=== PATIENT | female | born 1960 | race Caucasian/White ===

== ENCOUNTER 2017-03-21 06:23 | Emergency (ER) | payer BC, OTHER ==
[~2017-03-21] VITALS: Ht 162.6 cm; Wt 72.6 kg
[~2017-03-21 06:23] MED LIST: AMLO1CAP7 PO; CLON0.5T3 PO; DOXY100C2 PO; ESTR1TAB24; FENO105T3 PO; HCT25T PO; HYDR1CAP3; LISI10TA PO; LISI1TAB10 PO; LORA0.5T PO; LOSA100T16 PO; LOSA1TAB19 PO; METO100T2 PO; PNT40TEC PO; PRAV40TA PO; PROM12.59 PO; SCR1T PO; SERT50TA PO; SULF1TAB35
--- OUTSIDE RECORDS SUMMARY | 2017-03-21 06:30 | XMS REPORT ---
Author Author ABENA MEJIA [facility] eClinicalWorks Address Unknown Phone Unavailable Care Team Providers Care Wine Pasteurizer Name Role Phone ABENA MEJIA CP Unavailable Allergies, Adverse Reactions, Alerts Substance Reaction Event Type N.K.D.A. Info Not Available Non Drug Allergy Problems Problem Type Condition Code Onset Dates Condition Status Problem Need for prophylactic vaccination and inoculation, Influenza V04.81 Active Assessment Sore throat J02.9 Active Problem Hypertension 401.9 Active Medications Medication Code System Code Instructions Start Date End Date Status Dosage Amlodipine Besylate [facility] [address]-66 5 MG Orally Once a day 1 tablet Promethazine HCl [facility] [address]-44 25 MG Orally every 6 hrs prn 1 tablet as needed Amoxicillin [facility] [address]-41 500 MG Orally 3 times a day September 05, 2015 September 15, 2015 1 capsule Losartan Potassium [facility] [address]-37 100 MG Orally Once a day 1 tablet Procedures Procedure Coding System Code Date Office Visit, Est Pt., Level 3 CPT-4 48231 September 05, 2015 STREP A ASSAY W/OPTIC CPT-4 27508 September 05, 2015 Vital Signs Date/Time: September 05, 2015 Cardiac Monitoring Heart Rate 64 bpm Weight 163.8 lbs Height 64 in Blood Pressure Diastolic 80 mmHg Blood Pressure Systolic 126 mmHg Results No Known Results Summary Purpose eClinicalWorks Submission
--- OUTSIDE RECORDS SUMMARY | 2017-03-21 06:31 | XMS REPORT ---
Author Author CECILIA IVEY Organization eClinicalWorks Address Unknown Phone Unavailable Care Team Providers Care Battery Parts Assembler Name Role Phone CECILIA IVEY CP Unavailable Allergies No Known Allergies Problems Problem Type Condition ICD-9 Code Onset Dates Condition Status Problem Need for prophylactic vaccination and inoculation, Influenza V04.81 Active Medications Medication Code System Code Instructions Start Date End Date Status Dosage Hydrochlorothiazide [facility] [address]-72 25 MG Orally Once a day 1 tablet Results No Known Results Summary Purpose eClinicalWorks Submission
--- OUTSIDE RECORDS SUMMARY | 2017-03-21 06:31 | XMS REPORT ---
Author Author CECILIA IVEY [facility] eClinicalWorks Address Unknown Phone Unavailable Care Team Providers Care Production Line Technician Name Role Phone CECILIA IVEY CP Unavailable Allergies, Adverse Reactions, Alerts Substance Reaction Event Type N.K.D.A. Info Not Available Non Drug Allergy Problems Problem Type Condition ICD-9 Code Onset Dates Condition Status Problem Need for prophylactic vaccination and inoculation, Influenza V04.81 Active Assessment Hypertension 401.9 Active Problem Hypertension 401.9 Active Assessment Insomnia 780.52 Active Medications Medication Code System Code Instructions Start Date End Date Status Dosage Promethazine HCl [facility] [address]-36 25 MG Orally every 6 hrs prn 1 tablet as needed Amlodipine Besylate [facility] [address]-77 5 MG Orally Once a day 1 tablet Metoprolol Tartrate [facility] [address]-83 100 MG Orally Twice a day 1 tablet Clonazepam [facility] [address]-49 0.5 MG Orally Once a day prn for sleep 1 tablet Losartan Potassium [facility] [address]-71 100 MG Orally Once a day 1 tablet Hydrochlorothiazide [facility] [address]-25 25 MG Orally Once a day 1 tablet Procedures Procedure Coding System Code Date Office Visit, Est Pt., Level 3 CPT-4 42226 Nov 08, 2014 Vital Signs Date/Time: Nov 08, 2014 Cardiac Monitoring Heart Rate 76 bpm Temperature 98.3 F Weight 162.0 lbs Blood Pressure Diastolic 82 mmHg Blood Pressure Systolic 134 mmHg Results No Known Results Summary Purpose eClinicalWorks Submission
--- OUTSIDE RECORDS SUMMARY | 2017-03-21 06:31 | XMS REPORT ---
Author Author CECILIA IVEY [facility] [address] Address [address] [place] [address] Care Team Providers Care Yarn Preparation Supervisor Name Role Phone CECILIA IVEY Unavailable PROBLEMS Type Condition ICD9-CM Code VNS06-PS Code Onset Dates Condition Status SNOMED Code Problem Seasonal allergic rhinitis due to pollen J30.1 Active 74039027 Problem Primary insomnia F51.01 Active 7836521 Problem Hypertension 401.9 Active 83950877 Problem Need for prophylactic vaccination and inoculation, Influenza V04.81 Active 005319213 Problem Essential hypertension I10 Active 62644375 Problem Stress incontinence, female N39.3 Active 29208431 ALLERGIES No Information SOCIAL HISTORY Never Assessed PLAN OF CARE VITAL SIGNS MEDICATIONS Unknown Medications RESULTS No Results PROCEDURES No Known procedures IMMUNIZATIONS No Known Immunizations MEDICAL (GENERAL) HISTORY Type Description Date Medical History [place] G[place]MEZ GRADE B REFLUX (GIL RECORDS) 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
--- OUTSIDE RECORDS SUMMARY | 2017-03-21 06:31 | XMS REPORT ---
Author Author CECILIA IVEY [facility] Address [address] [place] [address] Care Team Providers Care Disability Hearing Officer Name Role Phone CECILIA IVEY Unavailable PROBLEMS Type Condition ICD9-CM Code [id number] Code Onset Dates Condition Status SNOMED Code Problem Seasonal allergic rhinitis due to pollen J30.1 Active 49892284 Problem Primary insomnia F51.01 Active 5961575 Problem Hypertension 401.9 Active 95036104 Problem Need for prophylactic vaccination and inoculation, Influenza V04.81 Active 385057922 Problem Essential hypertension I10 Active 85565521 Problem Stress incontinence, female N39.3 Active 96061272 ALLERGIES No Known Allergies SOCIAL HISTORY Never Assessed PLAN OF CARE Activity Details Follow Up 3 Months Reason:Insomnia VITAL SIGNS Height 64 in 2016-05-06 Weight 166.6 lbs 2016-05-06 Temperature 97.7 degrees Fahrenheit 2016-05-06 Heart Rate 80 bpm 2016-05-06 Respiratory Rate 20 2016-05-06 BMI 28.59 kg/m2 2016-05-06 Blood pressure systolic 118 mmHg 2016-05-06 Blood pressure diastolic 78 mmHg 2016-05-06 MEDICATIONS Medication Instructions Dosage Frequency Start Date End Date Duration Status Hydrochlorothiazide 25 MG Orally Once a day 1 tablet 24h Active Amlodipine Besylate 5 MG Orally Once a day 1 tablet 24h Active Metoprolol Tartrate 100 MG Orally Twice a day 1 tablet 12h Active Losartan Potassium 100 MG Orally Once a day 1 tablet 24h Active Clonazepam 0.5 MG Orally Once a day prn for sleep 1 tablet Active Estradiol 1 MG Orally Once a day 1 tablet 24h 20 days Active RESULTS Name Result Date Reference Range [facility] 2016-05-06 Glucose, Serum 94 65-99 BUN 16 6-24 Creatinine, Serum 0.64 0.57-1.00 eGFR If NonAfricn Am 101 >59 eGFR If Africn Am 116 >59 BUN/Creatinine Ratio 25 9-23 Sodium, Serum 139 134-144 Potassium, Serum 4.6 3.5-5.2 Chloride, Serum 99 96-106 Carbon Dioxide, Total 24 18-29 Calcium, Serum 10.2 8.7-10.2 Protein, Total, Serum 7.0 6.0-8.5 Albumin, Serum 4.5 3.5-5.5 Globulin, Total 2.5 1.5-4.5 A/G Ratio 1.8 1.1-2.5 Bilirubin, Total 0.4 0.0-1.2 Alkaline Phosphatase, S 96 39-117 AST (SGOT) 15 0-40 ALT (SGPT) 20 0-32 Mammogram, Bilateral Screening 2016-05-13 PROCEDURES Procedure Date Ordered Result Body Site COMPREHEN METABOLIC PANEL May 06, 2016 VENIPUNCT, ROUTINE* May 06, 2016 IMMUNIZATIONS No Known Immunizations MEDICAL (GENERAL) HISTORY Type Description Date Medical History [place] G[place]MEZ GRADE B REFLUX ([facility] RECORDS) WITH HILL GRADE 3 LES (LOWER ESOPHAGUS SPINCTER) INCOMPETENCE Medical History Mitral valve prolapse - 1988 Medical History Hypertension Medical History Hyperlipidemia Medical History beginning stages of COPD Surgical History wound repair x 5 Surgical History Endometriosis- adhesion removal Surgical History TIF 2009 Surgical History LUE nerve repair 2010 Surgical History section x2 Surgical History Hysterectomy -- Had other ovary removed in 2001 due to endometriosis Surgical History Cholecystectomy Hospitalization History past surgery
--- OUTSIDE RECORDS SUMMARY | 2017-03-21 06:31 | XMS REPORT ---
Author Author NOEL LACEY [facility] eClinicalWorks Address Unknown Phone Unavailable Care Team Providers Care Mixing Picker Tender Name Role Phone NOEL LACEY Unavailable Allergies, Adverse Reactions, Alerts Substance Reaction Event Type N.K.D.A. Info Not Available Non Drug Allergy Problems Problem Type Condition Code Onset Dates Condition Status Assessment Smoker unmotivated to quit F17.210 Active Assessment Seasonal allergic rhinitis due to pollen J30.1 Active Assessment Cough R05 Active Problem Essential hypertension I10 Active Problem Primary insomnia F51.01 Active Problem Seasonal allergic rhinitis due to pollen J30.1 Active Problem Need for prophylactic vaccination and inoculation, Influenza V04.81 Active Assessment Pharyngitis, unspecified etiology J02.9 Active Problem Stress incontinence, female N39.3 Active Problem Hypertension 401.9 Active Medications Medication Code System Code Instructions Start Date End Date Status Dosage Hydrochlorothiazide [facility] [address]-40 25 TAKE ONE TABLET BY MOUTH DAILY Amlodipine Besylate [facility] [address]-72 5 MG Orally Once a day 1 tablet Zyrtec Allergy [facility] [address]-31 10 mg Orally Once a day Dec 31, 2015 Feb 29, 2016 1 tablet Metoprolol Tartrate [facility] [address]-82 100 MG Orally Twice a day 1 tablet Losartan Potassium [facility] [address]-72 100 MG Orally Once a day 1 tablet Clonazepam [facility] [address]-95 0.5 MG Orally Once a day prn for sleep 1 tablet Hydrochlorothiazide [facility] [address]-99 25 MG Orally Once a day 1 tablet Estradiol [facility] [address]-07 1 MG Orally Once a day 1 tablet Procedures Procedure Coding System Code Date Office Visit, Est Pt., Level 3 CPT-4 93892 Dec 31, 2015 MEASURE BLOOD OXYGEN LEVEL CPT-4 48083 Dec 31, 2015 Vital Signs Date/Time: Dec 31, 2015 Cardiac Monitoring Heart Rate 74 bpm Weight 173.8 lbs Height 64 in BMI 29.83 Index Oximetry 96 % Blood Pressure Diastolic 74 mmHg Blood Pressure Systolic 133 mmHg Results No Known Results Summary Purpose eClinicalWorks Submission
--- OUTSIDE RECORDS SUMMARY | 2017-03-21 06:31 | XMS REPORT ---
Author Author CECILIA IVEY [facility] Address [address] [place] [address] Care Team Providers Care Research Study Assistant Name Role Phone CECILIA IVEY Unavailable PROBLEMS Type Condition ICD9-CM Code QDH59-AZ Code Onset Dates Condition Status SNOMED Code Problem Seasonal allergic rhinitis due to pollen J30.1 Active 65852876 Problem Primary insomnia F51.01 Active 8579840 Problem Hypertension 401.9 Active 21099185 Problem Need for prophylactic vaccination and inoculation, Influenza V04.81 Active 217173517 Problem Essential hypertension I10 Active 85406524 Problem Stress incontinence, female N39.3 Active 75013514 ALLERGIES No Information SOCIAL HISTORY Never Assessed PLAN OF CARE VITAL SIGNS MEDICATIONS Medication Instructions Dosage Frequency Start Date End Date Duration Status Amlodipine Besylate 5 mg Orally Once a day 1 tablet 24h 20 days Active Estradiol 1 MG Orally Once a day 1 tablet 24h 20 days Active Losartan Potassium 100 mg Orally Once a day 1 tablet 24h 20 days Active Hydrochlorothiazide 25 TAKE ONE TABLET BY MOUTH DAILY 20 days Active Metoprolol Tartrate 100 mg Orally Twice a day 1 tablet 12h 20 days Active RESULTS No Results PROCEDURES No Known procedures [...] TIF 2008 Surgical History LUE nerve repair 2009 Surgical History section x2 Surgical History Hysterectomy -- Had other ovary removed in 2001 due to endometriosis Surgical History Cholecystectomy Hospitalization History past surgery
--- OUTSIDE RECORDS SUMMARY | 2017-03-21 06:31 | XMS REPORT ---
Author Author NOEL LACEY Organization eClinicalWorks Address Unknown Phone Unavailable Care Team Providers Care Turkey Egg Gatherer Name Role Phone NOEL LACEY Unavailable Allergies No Known Allergies Problems Problem Type Condition Code Onset Dates Condition Status Problem Need for prophylactic vaccination and inoculation, Influenza V04.81 Active Assessment Encounter for immunization Z23 Active Problem Hypertension 401.9 Active Medications No Known Medications Procedures Procedure Coding System Code Date FLUARIX QUAD (3 & UP)-GSK-2014 CPT-4 61937 Dec 15, 2014 SINGLE IMMUNIZATION ADMIN CPT-4 63343 Dec 15, 2014 TDAP (BOOSTRIX) CPT-4 73533 Dec 15, 2014 IMMUNIZATION ADMIN, EACH ADD (please include units) CPT-4 25114 Dec 15, 2014 Results No Known Results Immunizations Vaccine Administration Date TDAP (BOOSTRIX) Dec 15, 2014 FLUARIX QUAD (3 & UP)-GSK-2014Dec 15, 2014 Summary Purpose eClinicalWorks Submission
--- OUTSIDE RECORDS SUMMARY | 2017-03-21 06:31 | XMS REPORT | Continuity of Care Document ---
Author Author [facility] Address Unknown Phone Unavailable Allergies Active Description Code Type Severity Reaction Onset Reported/Identified Relationship to Patient Clinical Status Yes No Known Drug Allergies [id number] Drug Allergy Unknown N/A 07/21/2009 Medications There is no data. Problems Date Dx Coded Attending Type Code Diagnosis Diagnosed By 09/21/2007 DEEPTHI MUNOZ NOEL A 296.32 MAJOR DEPRESSIVE AFFECTIVE DISORDER RECURRENT EPISODE MODERATE DEGREE 09/21/2007 MADL DIRECTOR OF DIVERSITY AND INCLUSION, CECILIA L 296.32 MAJOR DEPRESSIVE AFFECTIVE DISORDER RECURRENT EPISODE MODERATE DEGREE 10/14/2007 EWAE ALEXANDER NOEL A 780.79 MALAISE AND FATIGUE 10/14/2007 EWAE ALEXANDER NOEL A 785.6 LYMPH NODES ENLARGEMENT 10/14/2007 MADL DIRECTOR OF DIVERSITY AND INCLUSION, CECILIA L 780.79 MALAISE AND FATIGUE 10/14/2007 MADL DIRECTOR OF DIVERSITY AND INCLUSION, CECILIA L 785.6 LYMPH NODES ENLARGEMENT 11/28/2008 EWAE ALEXANDER NOEL A 627.2 MENOPAUSE SYMPTOMATIC 11/28/2008 RAJOTTE DIRECTOR OF DIVERSITY AND INCLUSION, NOEL A V07.4 taking female hormones for postmenopausal HRT 11/28/2008 MADL DIRECTOR OF DIVERSITY AND INCLUSION, CECILIA L 627.2 MENOPAUSE SYMPTOMATIC 11/28/2008 MADL DIRECTOR OF DIVERSITY AND INCLUSION, CECILIA L V07.4 taking female hormones for postmenopausal HRT 12/27/2012 RAJISAIE ALEXANDER NOEL A V04.81 FLU SHOT 12/27/2012 MADL DIRECTOR OF DIVERSITY AND INCLUSION, CECILIA L V04.81 FLU SHOT 06/24/2014 MADL DIRECTOR OF DIVERSITY AND INCLUSION, CECILIA L 305.1 TOBACCO ABUSE 06/24/2014 MADL DIRECTOR OF DIVERSITY AND INCLUSION, CECILIA L 401.1 HYPERTENSION, BENIGN ESSENTIAL 06/24/2014 MADL DIRECTOR OF DIVERSITY AND INCLUSION, CECILIA L 786.50 UNSPECIFIED CHEST PAIN 06/24/2014 MADL DIRECTOR OF DIVERSITY AND INCLUSION, CECILIA L V49.81 ASYMPTOMATIC POSTMENOPAUSAL STATUS (AGE-RELATED) (NATURAL) 09/29/2014 MOHAN JAIME MD Ot 305.1 09/29/2014 MOHAN JAIME MD Ot 401.9 09/29/2014 MOHAN JAIME MD Ot 786.09 09/29/2014 MOHAN JAIME MD Ot 786.50 10/23/2014 MOHAN JAIME MD Ot 305.1 10/23/2014 MOHAN JAIME MD Ot 401.9 10/23/2014 MOHAN JAIME MD Ot 786.09 10/23/2014 MOHAN JAIME MD, Ot 786.50 Procedures Code [place] [address] MAMMOGRAM, SCREENING 06/24/2014 CARDIOLOG MOHAN JAIME 06/24/2014 Results There is no data. Encounters ACCT No. Visit Date/Time Discharge Status Pt. Type Provider Facility Loc./Unit Complaint [id number] 06/24/2014 12:45:00 06/24/2014 23:59:59 CLS Outpatient CECILIA IVEY APRN [id number] 12/27/2012 15:13:00 12/27/2012 23:59:59 CLS Outpatient NOEL LACEY APRN [id number] 09/26/2014 09:29:00 09/26/2014 23:59:59 CLS Outpatient MOHAN JAIME MD [facility] CARD [id number] 03/24/2013 08:49:00 03/24/2013 23:59:59 CLS Outpatient [id number] 08/05/2012 06:59:00 08/05/2012 10:25:00 DIS Outpatient [id number] 08/04/2012 07:18:00 08/04/2012 23:59:59 CLS Outpatient
--- OUTSIDE RECORDS SUMMARY | 2017-03-21 06:31 | XMS REPORT ---
Author Author CECILIA IVEY [facility] Address [address] [place] [address] Care Team Providers Care Weights And Measures Inspector Name Role Phone CECILIA IVEY Unavailable PROBLEMS Type Condition ICD9-CM Code FCX74-ZE Code Onset Dates Condition Status SNOMED Code Problem Seasonal allergic rhinitis due to pollen J30.1 Active 28843745 Problem Primary insomnia F51.01 Active 8531458 Problem Hypertension 401.9 Active 02830632 Problem Need for prophylactic vaccination and inoculation, Influenza V04.81 Active 888399135 Problem Essential hypertension I10 Active 62609133 Problem Stress incontinence, female N39.3 Active 31864966 ALLERGIES Unknown Allergies SOCIAL HISTORY No smoking Hx information available PLAN OF CARE VITAL SIGNS MEDICATIONS Medication Instructions Dosage Frequency Start Date End Date Duration Status Metoprolol Tartrate 100 mg Orally Twice a day 1 tablet 12h 16 days Active Amlodipine Besylate 5 mg Orally Once a day 1 tablet 24h 16 days Active Hydrochlorothiazide 25 TAKE ONE TABLET BY MOUTH DAILY 16 days Active RESULTS No Results PROCEDURES No Known procedures IMMUNIZATIONS No Known Immunizations
--- OUTSIDE RECORDS SUMMARY | 2017-03-21 06:31 | XMS REPORT ---
Author Author CECILIA IVEY [facility] eClinicalWorks Address Unknown Phone Unavailable Care Team Providers Care A&P Technician Name Role Phone CECILIA IVEY CP Unavailable Allergies, Adverse Reactions, Alerts Substance Reaction Event Type N.K.D.A. Info Not Available Non Drug Allergy Problems Problem Type Condition Code Onset Dates Condition Status Assessment Stress incontinence, female N39.3 Active Problem Primary insomnia F51.01 Active Problem Stress incontinence, female N39.3 Active Problem Essential hypertension I10 Active Assessment Essential hypertension I10 Active Assessment Primary insomnia F51.01 Active Problem Hypertension 401.9 Active Problem Need for prophylactic vaccination and inoculation, Influenza V04.81 Active Medications Medication Code System Code Instructions Start Date End Date Status Dosage Metoprolol Tartrate [facility] [address]-23 100 MG Orally Twice a day 1 tablet Losartan Potassium [facility] [address]-58 100 MG Orally Once a day 1 tablet Amlodipine Besylate [facility] [address]-60 5 MG Orally Once a day 1 tablet Hydrochlorothiazide [facility] [address]-72 25 MG Orally Once a day 1 tablet Clonazepam [facility] [address]-16 0.5 MG Orally Once a day prn for sleep 1 tablet [address]q [facility] [address]-59 50 mg Orally Once a day September 11, 2015 Oct 09, 2015 1 tablet Amox[address] [facility] [address]-41 500 MG Orally 3 times a day September 05, 2015 September 15, 2015 1 capsule Procedures Procedure Coding System Code Date Office Visit, Est Pt., Level 4 CPT-4 82432 September 11, 2015 Vital Signs Date/Time: September 11, 2015 Cardiac Monitoring Heart Rate 70 bpm Weight 164.0 lbs Height 64 in Blood Pressure Diastolic 80 mmHg Blood Pressure Systolic 132 mmHg Results No Known Results Summary Purpose eClinicalWorks Submission
--- OUTSIDE RECORDS SUMMARY | 2017-03-21 06:31 | XMS REPORT ---
Author Author NOEL LACEY [facility] eClinicalWorks Address Unknown Phone Unavailable Care Team Providers Care Financial Aid Name Role Phone NOEL LACEY Unavailable Allergies No Known Allergies Problems Problem Type Condition Code Onset Dates Condition Status Problem Primary insomnia F51.01 Active Problem Stress incontinence, female N39.3 Active Problem Essential hypertension I10 Active Assessment Encounter for immunization Z23 Active Problem Hypertension 401.9 Active Problem Need for prophylactic vaccination and inoculation, Influenza V04.81 Active Medications No Known Medications Procedures Procedure Coding System Code Date SINGLE IMMUNIZATION ADMIN CPT-4 47898 Dec 03, 2015 FLUARIX QUAD P-FREE 3 AND UP .50 2015 CPT-4 78746 Dec 03, 2015 Results No Known Results Immunizations Vaccine Administration Date FLUARIX QUAD P-FREE 3 AND UP .50 2015Dec 03, 2015 Summary Purpose eClinicalWorks Submission
--- OUTSIDE RECORDS SUMMARY | 2017-03-21 06:31 | XMS REPORT ---
Author Author CINDY DARLING [facility] eClinicalWorks Address Unknown Phone Unavailable Care Team Providers Care Interactive Producer Name Role Phone CINDY DARLING CP Unavailable Allergies, Adverse Reactions, Alerts Substance Reaction Event Type N.K.D.A. Info Not Available Non Drug Allergy Problems Problem Type Condition Code Onset Dates Condition Status Assessment Left otitis media, unspecified chronicity, unspecified otitis media type H66.92 Active Problem Essential hypertension I10 Active Problem Primary insomnia F51.01 Active Problem Seasonal allergic rhinitis due to pollen J30.1 Active Problem Need for prophylactic vaccination and inoculation, Influenza V04.81 Active Assessment Fever, unspecified fever cause R50.9 Active Problem Stress incontinence, female N39.3 Active Problem Hypertension 401.9 Active Medications Medication Code System Code Instructions Start Date End Date Status Dosage Amoxicillin [facility] [address]-88 875 MG Orally every 12 hrs Jan 01, 2016 Jan 11, [address] [facility] [address]-00 1 MG Orally Once a day [address] [facility] [address]-58 25 TAKE ONE TABLET BY MOUTH DAILY Amlodipine Besylate [facility] [address]-90 5 MG Orally Once a day [address] [facility] [address]-54 0.5 MG Orally Once a day prn for sleep [address] [facility] [address]-99 10 mg Orally Once a day Dec 31, 2015 Feb 29, [address] [facility] [address]-60 100 MG Orally Twice a day [address] [facility] [address]-72 25 MG Orally Once a day [address] [facility] [address]-04 100 MG Orally Once a day 1 tablet Procedures Procedure Coding System Code Date Office Visit, Est Pt., Level 3 CPT-4 07333 Jan 01, 2016 INFLUENZA ASSAY W/OPTIC CPT-4 42904 Jan 01, 2016 Vital Signs Date/Time: Jan 01, 2016 Cardiac Monitoring Heart Rate 88 bpm Weight 165.8 lbs Height 64 in BMI 28.46 Index Blood Pressure Diastolic 78 mmHg Blood Pressure Systolic 124 mmHg Results Name Result Date Reference Range Unit Abnormality Flag INFLUENZA A & B (IN HOUSE) ----Exp date 11/29/1620160101 ----INFLUENZA A Negative 20160101 ----INFLUENZA B Negative 20160101 ----Control + 20160101 ----Lot # [id number] Summary Purpose eClinicalWorks Submission
[2017-03-21] MEDS ORDERED: ONDANSETRON 4 MG/2 ML (SDV) Z0FRAN IVP ONE (07:30)
[2017-03-21] MEDS ORDERED: NS IV 1000 ML 1,000 ML IV SCH (07:30)
[2017-03-21] MEDS ORDERED: fentaNYL INJECTION 100 MCG/2 ML AMP IVP ONE (07:30)
--- NOTE | 2017-03-21 07:32 | ED GI ---
General Chief Complaint: Abdominal/GI Problems Stated Complaint: VOMITING,DIARRHEA Nursing Triage Note: N/V/D, LOWER BACK PAIN, CHEST WALL PAIN Sepsis Screen: No Definite Risk Source of Information: Patient, Family Exam Limitations: No Limitations History of Present Illness Date Seen by Provider: Mar 21, 2017 Time Seen By Provider: 07:00 Initial Comments This 56-year-old white female presents with persistent vomiting that began last evening. The patient has had associated diarrhea. She denies associated upper respiratory symptoms. She has had no hematemesis, black or tarry stools, or bright red blood in the stool. The patient is concerned because she is status post wrapping of the stomach around the distal esophagus 7 years ago. Patient denies questionable food. She has had no similar episode in the past. She is taking no new medications. Significant past medical history includes hypertension. Allergies and Home Medications Allergies Coded Allergies: No Known Drug Allergies (Unverified , 07/21/09) Home Medications Amlodipine/Benazepril 1 Each Capsule, 1 EACH PO DAILY, (Reported) Clonazepam 0.5 Mg Tablet, 1 EACH PO HS PRN, (Reported) Hydrochlorothiazide 25 Mg Tab, 25 MG PO DAILY, (Reported) Losartan Potassium 100 Mg Tablet, 1 EACH PO DAILY, (Reported) Metoprolol Tartrate 100 Mg Tablet, 1 EACH PO BID, (Reported) Review of Systems Constitutional: see HPI, No chills, malaise EENTM: No Blurred Vision Respiratory: Denies Cough Cardiovascular: Denies Chest Pain Gastrointestinal: Denies Abdomen Distended, Abdominal Pain, Diarrhea, Nausea, Denies Rectal Bleeding, Vomiting Genitourinary: Denies Burning, Denies Frequency Musculoskeletal: No back pain Skin: No change in color Psychiatric/Neurological: No Symptoms Reported Endocrine: No Symptoms Reported Hematologic/Lymphatic: No Symptoms Reported Past Sfwdvtg-Ifitxi-Rkgerl Hx Patient Social History Alcohol Use: Rarely Uses Recreational Drug Use: No Smoking Status: Current Everyday Smoker Type Used: Cigarettes 2nd Hand Smoke Exposure: Yes Recent Foreign Travel: No Contact w/Someone Who Travel: No Recent Infectious Disease Expo: No Recent Hopitalizations: No Immunizations Up To Date Tetanus Booster (TDap): Unknown Seasonal Allergies Seasonal Allergies: No Surgeries History of Surgeries: Yes (TIF) Surgeries: Adenoidectomy, Section, Gallbladder, Hysterectomy, Orthopedic, Tonsillectomy Respiratory History of Respiratory Disorde: No Cardiovascular History of Cardiac Disorders: Yes Cardiac Disorders: Hypertension Neurological History of Neurological Disord: No Reproductive System Sexually Transmitted Disease: 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 Genitourinary History of Genitourinary Disor: No Gastrointestinal History of Gastrointestinal Di: Yes Gastrointestinal Disorders: Gastroesophageal Reflux Musculoskeletal History of Musculoskeletal Dis: No Endocrine History of Endocrine Disorders: No HEENT History of HEENT Disorders: No Cancer History of Cancer: No Psychosocial History of Psychiatric Problem: No Integumentary History of Skin or Integumenta: No Blood Transfusions History of Blood Disorders: No Reviewed Nursing Assessment Reviewed/Agree w Nursing PMH: Yes Physical Exam Vital Signs VS - Last 72 Hours, by Label 03/21/17 06:35 Temp 98.7 Pulse 105 Resp 18 B/P (MAP) 140/90 (107) Pulse Ox 94 O2 Delivery Room Air Capillary Refill : Less Than 3 Seconds General Appearance: WD/WN, mild distress HEENT: normal ENT inspection Neck: non-tender, full range of motion, normal inspection Respiratory: lungs clear, normal breath sounds, no respiratory distress Cardiovascular: normal peripheral pulses, regular rate, rhythm, no edema Gastrointestinal: normal bowel sounds, non tender, soft Extremities: normal range of motion, non-tender, normal inspection Back: normal inspection, no CVA tenderness, no vertebral tenderness Neurologic/Psychiatric: no motor/sensory deficits, alert, normal mood/affect, oriented x 3 Skin: normal color, warm/dry Progress/Results/Core Measures Results/Orders Lab Results Laboratory Tests Test 03/21/17 07:40 Range/Units White Blood Count 10.6 4.3-11.0 10^3/uL Red Blood Count 4.86 4.35-5.85 10^6/uL Hemoglobin 14.9 11.5-16.0 G/DL Hematocrit 42 35-52 % Mean Corpuscular Volume 86 80-99 FL Mean Corpuscular Hemoglobin 31 25-34 PG Mean Corpuscular Hemoglobin Concent 36 32-36 G/DL Red Cell Distribution Width 13.1 10.0-14.5 % Platelet Count 313 130-400 10^3/uL Mean Platelet Volume 9.7 7.4-10.4 FL Neutrophils (%) (Auto) 93 H 42-75 % Lymphocytes (%) (Auto) 3 L 12-44 % Monocytes (%) (Auto) 4 0-12 % Eosinophils (%) (Auto) 0 0-10 % Basophils (%) (Auto) 0 0-10 % Neutrophils # (Auto) 9.9 H 1.8-7.8 X 10^3 Lymphocytes # (Auto) 0.3 L 1.0-4.0 X 10^3 Monocytes # (Auto) 0.4 0.0-1.0 X 10^3 Eosinophils # (Auto) 0.0 0.0-0.3 10^3/uL Basophils # (Auto) 0.0 0.0-0.1 10^3/uL Neutrophils % (Manual) 93 % Lymphocytes % (Manual) 6 % Monocytes % (Manual) 1 % Eosinophils % (Manual) 0 % Basophils % (Manual) 0 % Band Neutrophils 0 % Blood Morphology Comment NORMAL Sodium Level 142 135-145 MMOL/L Potassium Level 3.8 3.6-5.0 MMOL/L Chloride Level 104 98-107 MMOL/L Carbon Dioxide Level 23 21-32 MMOL/L Anion Gap 15 H 5-14 MMOL/L Blood Urea Nitrogen 16 7-18 MG/DL Creatinine 0.73 0.60-1.30 MG/DL Estimat Glomerular Filtration Rate > 60 BUN/Creatinine Ratio 22 Glucose Level 116 H 70-105 MG/DL Calcium Level 9.9 8.5-10.1 MG/DL Total Bilirubin 0.9 0.1-1.0 MG/DL Aspartate Amino Transf (AST/SGOT) 19 5-34 U/L Alanine Aminotransferase (ALT/SGPT) 25 0-55 U/L Alkaline Phosphatase 89 40-136 U/L Total Protein 7.7 6.4-8.2 GM/DL Albumin 4.4 3.2-4.5 GM/DL Lipase 23 8-78 U/L My Orders Orders - JERMAN VALENCIA MD Ns Iv 1000 Ml (Sodium Chloride 0.9%) (03/21/17 07:30) Ondansetron Injection (Zofran Injectio (03/21/17 07:30) Fentanyl Injection (Sublimaze Injection (03/21/17 07:30) Ct Abdomen/Pelvis W (03/21/17 07:25) Cbc With Automated Diff (03/21/17 07:25) Comprehensive Metabolic Panel (03/21/17 07:25) Lipase (03/21/17 07:25) Ua Culture If Indicated (03/21/17 07:25) Manual Differential (03/21/17 07:40) Iohexol Injection (Omnipaque 350 Mg/Ml 1 (03/21/17 08:45) Ns (Ivpb) (Sodium Chloride 0.9% Ivpb Bag (03/21/17 08:45) Medications Given in ED Current Medications Medications Dose Ordered Sig/Silvina Route Start Time Stop Time Status Last Admin Dose Admin Fentanyl Citrate 50 mcg ONCE ONCE IVP 03/21/17 07:30 03/21/17 07:31 DC 03/21/17 07:50 50 MCG Iohexol 100 ml ONCE ONCE IV 03/21/17 08:45 03/21/17 08:46 DC 03/21/17 08:35 100 ML Ondansetron HCl 4 mg ONCE ONCE IVP 03/21/17 07:30 03/21/17 07:31 DC 03/21/17 07:47 4 MG Sodium Chloride 100 ml ONCE ONCE IV 03/21/17 08:45 03/21/17 08:46 DC 03/21/17 08:35 80 ML Vital Signs/I&O Vital Sign - Last 12Hours 03/21/17 06:35 Temp 98.7 Pulse 105 Resp 18 B/P (MAP) 140/90 (107) Pulse Ox 94 O2 Delivery Room Air Blood Pressure Mean: 107 Progress Note : Time: 09:40 Progress Note The patient's CT of the abdomen and pelvis was unremarkable other than demonstrating a mild ileus. Patient's laboratory evaluation was similarly benign. Patient was significantly improved with IV fluids, IV fentanyl, and IV Zofran. Departure Impression Impression: Primary Impression: Nausea and vomiting Qualified Codes: R11.2 - Nausea with vomiting, unspecified Disposition: 01 HOME, SELF-CARE Condition: Improved Departure-Patient Inst. Decision time for Depature: 09:42 Referrals: [facility] (PCP/Family) Primary Care Physician Patient Instructions: Nausea and Vomiting, Adult (DC) Add. Discharge Instructions: Zofran, Vicodin, and clear liquids. Close follow-up with [facility] on Thursday. Return if any problems or questions. All discharge instructions reviewed with patient and/or family. Voiced understanding. JERMAN VALENCIA MD Mar 21, 2017 07:32
[2017-03-21 07:52] LABS: BASOPHILS % (AUTO) 0 % (0-10); EOSINOPHILS % (AUTO) 0 % (0-10); HEMATOCRIT 42 % (35-52); HEMOGLOBIN 14.9 G/DL (11.5-16.0); LYMPHOCYTES # (AUTO) 0.3 X 10^3 (1.0-4.0); LYMPHOCYTES % (AUTO) 3 % (12-44); MEAN CORPUSCULAR HEMOGLOBIN 31 PG (25-34); MEAN CORPUSCULAR HGB CONC 36 G/DL (32-36); MEAN CORPUSCULAR VOLUME 86 FL (80-99); MEAN PLATELET VOLUME 9.7 FL (7.4-10.4); MONOCYTES # (AUTO) 0.4 X 10^3 (0.0-1.0); MONOCYTES % (AUTO) 4 % (0-12); NEUTROPHILS # (AUTO) 9.9 X 10^3 (1.8-7.8); NEUTROPHILS % (AUTO) 93 % (42-75); PLATELET COUNT 313 10^3/uL (130-400); RED BLOOD COUNT 4.86 10^6/uL (4.35-5.85); RED CELL DISTRIBUTION WIDTH 13.1 % (10.0-14.5); WHITE BLOOD COUNT 10.6 10^3/uL (4.3-11.0)
[2017-03-21 08:12] LABS: ALANINE AMINOTRANSFERASE 25 U/L (0-55); ALBUMIN 4.4 GM/DL (3.2-4.5); ALKALINE PHOSPHATASE 89 U/L (40-136); BAND NEUTROPHILS 0 %; BASOPHILS % (MANUAL) 0 %; BILIRUBIN,TOTAL 0.9 MG/DL (0.1-1.0); BUN/CREATININE RATIO 22; CALCIUM 9.9 MG/DL (8.5-10.1); CARBON DIOXIDE 23 MMOL/L (21-32); CHLORIDE 104 MMOL/L (98-107); CREATININE SERUM 0.73 MG/DL (0.60-1.30); EOSINOPHILS % (MANUAL) 0 %; GFR ESTIMATED > 60; GLUCOSE 116 MG/DL (70-105); LIPASE 23 U/L (8-78); LYMPHOCYTES % (MANUAL) 6 %; MONOCYTES % (MANUAL) 1 %; NEUTROPHILS % (MANUAL) 93 %; POTASSIUM 3.8 MMOL/L (3.6-5.0); RBC MORPH NORMAL; SODIUM 142 MMOL/L (135-145); TOTAL PROTEIN 7.7 GM/DL (6.4-8.2)
[2017-03-21] MEDS ORDERED: NS 100 ML (IVPB) BAG IV ONE (08:45)
[2017-03-21] MEDS ORDERED: IOHEXOL 350 MG/ML 100 ML (OMNIPAQUE 350) VIAL IV ONE (08:45)
--- NOTE | 2017-03-21 08:57 | Diagnostic Imaging Report ---
PROCEDURE: CT abdomen and pelvis with contrast. TECHNIQUE: Multiple contiguous axial images were obtained through the abdomen and pelvis after administration of intravenous contrast. INDICATION: Abdominal pain with nausea, vomiting, and diarrhea COMPARISON: None FINDINGS: The lung bases are clear. There is mild diffuse hepatic steatosis. There are several low-density lesions in the liver which are probably cysts. The gallbladder is absent. The portal vein enhances normally. There is no biliary dilatation. The pancreas, spleen and adrenal glands appear unremarkable. The kidneys appear unremarkable. There is no obstructive change. There are surgical clips in the right lower quadrant suggestive of prior appendectomy. No focal inflammatory process is seen. There are several mildly dilated small bowel loops containing fluid in the left upper quadrant. The distal small bowel appears decompressed. The findings could be related to an enteritis or ileus although a developing small bowel obstruction not entirely excluded. There appears to be fairly gradual transition zone. The uterus is absent. There is no free fluid or free air. The abdominal aorta is normal in caliber. There is atherosclerosis. No acute osseous abnormality is demonstrated. IMPRESSION: 1. There are multiple mildly dilated fluid-filled small bowel loops in the upper abdomen with a fairly smooth gradual transition zone of decompressed small bowel. This may be related to an ileus or enteritis. Developing small bowel obstruction difficult to entirely exclude. Short-term followup study may be of benefit. 2. Diffuse hepatic steatosis. Multiple low-density lesions in the liver are probably cysts. 3. No additional abnormality is demonstrated. Dictated by: Dictated on workstation # [id number]
[2017-03-21 09:48] VITALS: BP 138/83
== END 2017-03-21 09:55 | disposition home or self-care (01) ==
LOC: EDUNIT# 06:23 → ER 06:25
DX: R11.2 Nausea with vomiting, unspecified (principal); K21.9 Gastro-esophageal reflux disease without esophagitis; I10 Essential (primary) hypertension; F17.210 Nicotine dependence, cigarettes, uncomplicated; Z90.710 Acquired absence of both cervix and uterus; Z87.59 Personal history of other complications of pregnancy, childbirth and the puerperium; Z90.89 Acquired absence of other organs
CPT/HCPCS: 36415; 74177; 80053; 83690; 85007; 85027; 96361; 96374; 96375

== ENCOUNTER 2017-09-18 06:23 | Emergency (ER) | payer SELFPAY ==
[~2017-09-18] VITALS: Ht 162.6 cm; Wt 72.6 kg
[2017-09-18] MEDS ORDERED: METO-333 PO (06:38)
[2017-09-18] MEDS ORDERED: HYDR25TA4 PO (06:38)
[2017-09-18] MEDS ORDERED: LOSA50TA36 PO (06:38)
[2017-09-18] MEDS ORDERED: AMLO5TAB4 PO (06:38)
--- OUTSIDE RECORDS SUMMARY | 2017-09-18 06:51 | XMS REPORT ---
Author Author CECILIA IVEY [facility] Address [address] [place] [address] Care Team Providers Care Photo Booth Operator Name Role Phone CECILIA IVEY Unavailable PROBLEMS Type Condition ICD9-CM Code [id number] Code Onset Dates Condition Status SNOMED Code Problem Left foot pain M79.672 Active 116761349254315 Problem Seasonal allergic rhinitis due to pollen J30.1 Active 67267009 Problem Essential hypertension I10 Active 58796547 Problem Stress incontinence, female N39.3 Active 63017898 Problem Primary insomnia F51.01 Active 6704977 ALLERGIES No Information ENCOUNTERS Encounter Location Date Diagnosis [place] [address] [address] Aug, [place] [address] [address] May, Medication refill Z76.0 and Left foot pain M79.672 [place] [address] [place] [id number] [place] [address] May, Essential hypertension I10 [place] [address] [place] [id number] [place] [address] Nov, Left ankle effusion M25.472 [place] [address] [place] [id number] [place] [address] Nov, Essential hypertension I10 ; Primary insomnia F51.01 and Left ankle effusion M25.472 [place] [address] [place] [id number] [place] [address] Oct, Essential hypertension I10 [place] [address] [place] [id number] [place] [address] Apr, [place] [address] [place] [id number] [place] [address] Apr, Essential hypertension I10 ; Primary insomnia F51.01 ; Stress incontinence, female N39.3 and Postmenopausal Z78.0 [facility] [address] [address] Apr, Essential hypertension I10 [place] [address] [address] Mar, Essential hypertension I10 [facility] [address] [address] Dec, Fever, unspecified fever cause R50.9 and Left otitis media , unspecified chronicity, unspecified otitis media type H66.92 [facility] [address] [id number] Nov, Pharyngitis, unspecified etiology J02.9 ; Seasonal allergic rhinitis due to pollen J30.1 ; Cough R05 and Smoker unmotivated to quit F17.210 [facility] [address] [id number] Nov, Encounter for immunization Z23 [place] [address] [address] Aug, Essential hypertension I10 ; Primary insomnia F51.01 and Stress incontinence, female N39.3 [facility] [address] [place] [id number] [place] [address] Aug, Sore throat J02.9 [facility] [address] [id number] Apr, Insect bite W57.XXXA [place] [address] [address] Nov, Encounter for immunization Z23 [place] [address] [address] 09 Oct, 2014 Hypertension 401.9 and Insomnia 780.52 [facility] [address] [place] [address] Sep, [facility] [address] [place] [address] Sep, [facility] [address] [place] [address] Sep, [facility] [address] [place] [id number] [place] [address] Sep, [facility] [address], [place] [address] Aug, [facility] [address] [place] [id number] [place] [address] Aug, [facility] [address] [place] [id number] [place] [address] Aug, [facility] [address] [place] [id number] [place] [address] June, Chest pain 786.50 ; Nicotine dependence 305.1 and Hypertension, essential, benign 401.1 [facility] [address] [place] [id number] [place] [address] Nov, [facility] [address], [place] [address] Nov, IMMUNIZATIONS No Known Immunizations SOCIAL HISTORY Never Assessed REASON FOR VISIT Refill request PLAN OF CARE VITAL SIGNS MEDICATIONS Medication Instructions Dosage Frequency Start Date End Date Duration Status Amlodipine Besylate 5 mg Orally Once a day 1 tablet 24h Active Losartan Potassium 100 mg Orally Once a day 1 tablet 24h Active Hydrochlorothiazide 25 MG Orally Once a day 1 tablet 24h Active Metoprolol Tartrate 100 mg Orally Twice a day 1 tablet 12h Active RESULTS No Results PROCEDURES No Known procedures INSTRUCTIONS MEDICATIONS ADMINISTERED No Known Medications MEDICAL (GENERAL) HISTORY Type Description Date Medical History LOS GÓMEZ GRADE B REFLUX (GIL RECORDS) WITH HILL GRADE 3 LES (LOWER ESOPHAGUS SPINCTER) INCOMPETENCE Medical History Mitral valve prolapse - 1988 Medical History Hypertension Medical History Hyperlipidemia Medical History beginning stages of COPD Surgical History wound repair x 5 Surgical History Endometriosis- adhesion removal Surgical History TIF 2009 Surgical History LUE nerve repair 2009 Surgical History section x2 Surgical History Hysterectomy -- Had other ovary removed in 2001 due to endometriosis Surgical History Cholecystectomy Hospitalization History past surgery
--- OUTSIDE RECORDS SUMMARY | 2017-09-18 06:52 | XMS REPORT | Continuity of Care Document ---
Author Author [facility] Address Unknown Phone Unavailable Allergies Active Description Code Type Severity Reaction Onset Reported/Identified Relationship to Patient Clinical Status Yes No Known Drug Allergies [id number] Drug Allergy Unknown N/A 07/21/2009 Medications There is no data. Problems Date Dx Coded Attending Type Code Diagnosis Diagnosed By 09/21/2007 SAVAGE LACEY APRNYL A 296.32 MAJOR DEPRESSIVE AFFECTIVE DISORDER RECURRENT EPISODE MODERATE DEGREE 09/21/2007 CECILIA IVEY APRN L 296.32 MAJOR DEPRESSIVE AFFECTIVE DISORDER RECURRENT EPISODE MODERATE DEGREE 10/14/2007 DEEPTHI MUNOZ NOEL A 780.79 MALAISE AND FATIGUE 10/14/2007 DEEPTHI MUNOZ NOEL A 785.6 LYMPH NODES ENLARGEMENT 10/14/2007 KHADAR IVEY APRNA L 780.79 MALAISE AND FATIGUE 10/14/2007 KHADAR IVEY APRNA L 785.6 LYMPH NODES ENLARGEMENT 11/28/2008 DEEPTHI MUNOZ NOEL A 627.2 MENOPAUSE SYMPTOMATIC 11/28/2008 DEEPTHI MUNOZ NOEL A V07.4 taking female hormones for postmenopausal HRT 11/28/2008 KHADAR IVEY APRNA L 627.2 MENOPAUSE SYMPTOMATIC 11/28/2008 KHADAR IVEY APRNA L V07.4 taking female hormones for postmenopausal HRT 08/05/2012 GIL LIVINGSTON, ANTONIO S Ot 530.11 REFLUX ESOPHAGITIS 12/27/2012 DEEPTHI MUNOZ NOEL A V04.81 FLU SHOT 12/27/2012 KHADAR IVEY APRNA L V04.81 FLU SHOT 06/24/2014 KHADAR IVEY APRNA L 305.1 TOBACCO ABUSE 06/24/2014 KHADAR IVEY APRNA L 401.1 HYPERTENSION, BENIGN ESSENTIAL 06/24/2014 KHADAR IVEY APRNA L 786.50 UNSPECIFIED CHEST PAIN 06/24/2014 CECILIA IVEY APRN V49.81 ASYMPTOMATIC POSTMENOPAUSAL STATUS (AGE-RELATED) (NATURAL) 09/29/2014 MOHAN JAIME MD Ot 305.1 09/29/2014 MOHAN JAIME MD Ot 401.9 09/29/2014 MOHAN JAIME MD Ot 786.09 09/29/2014 MOHAN JAIME MD Ot 786.50 10/23/2014 MOHAN JAIME MD Ot 305.1 10/23/2014 MOHAN JAIME MD Ot 401.9 10/23/2014 MOHAN JAIME MD Ot 786.09 10/23/2014 MOHAN JAIME MD Ot 786.50 03/21/2017 ANTONIO CORDERO MD Ot V72.84 EXAM PRE-OPERATIVE NOS 03/21/2017 NIKI ROBERTS DO S Ot 785.1 PALPITATIONS 03/21/2017 MOHAN JAIME MD Ot 305.1 TOBACCO USE DISORDER 03/21/2017 MOHAN JAIME MD Ot 401.9 HYPERTENSION NOS 03/21/2017 MOHAN JAIME MD Ot 786.09 RESPIRATORY ABNORM NEC 03/21/2017 MOHAN JAIME MD Ot 786.50 CHEST PAIN NOS 03/21/2017 ANTONIO CORDERO MD Ot V72.84 EXAM PRE-OPERATIVE NOS 03/21/2017 NIKI ROBERTS DO S Ot 785.1 PALPITATIONS 03/21/2017 MOHAN JAIME MD Ot 305.1 TOBACCO USE DISORDER 03/21/2017 MOHAN JAIME MD Ot 401.9 HYPERTENSION NOS 03/21/2017 MOHAN JAIME MD Ot 786.09 RESPIRATORY ABNORM NEC 03/21/2017 MOHAN JAIME MD Ot 786.50 CHEST PAIN NOS 03/24/2017 JERMAN VALENCIA MD Ot F17.210 NICOTINE DEPENDENCE, CIGARETTES, UNCOMPL 03/24/2017 JERMAN VALENCIA MD Ot I10 ESSENTIAL (PRIMARY) HYPERTENSION 03/24/2017 JERMAN VALENCIA MD Ot K21.9 GASTRO-ESOPHAGEAL REFLUX DISEASE WITHOUT 03/24/2017 JERMAN VALENCIA MD Ot R11.10 VOMITING, UNSPECIFIED 03/24/2017 JERMAN VALENCIA MD Ot R11.2 NAUSEA WITH VOMITING, UNSPECIFIED 03/24/2017 ANNIE LIVINGSTON, JERMAN Horton Ot Z87.59 PERSONAL HISTORY OF COMP OF PREG, CHLDBR 03/24/2017 JERMAN VALENCIA MD Ot Z90.710 ACQUIRED ABSENCE OF BOTH CERVIX AND UTER 03/24/2017 JERMAN VALENCIA MD Ot Z90.89 ACQUIRED ABSENCE OF OTHER ORGANS Procedures Code Description [place] [address] MAMMOGRAM, SCREENING 06/24/2014 CARDIOLOG MOHAN JAIME 06/24/2014 Results Test Result Range Comp. Metabolic Panel (14) - 05/06/16 09:28 Glucose, Serum 94 mg/dL 65-99 BUN 16 mg/dL 6-24 Creatinine, Serum 0.64 mg/dL 0.57-1.00 eGFR If NonAfricn Am 101 mL/min/1.73 >59 eGFR If Africn Am 116 mL/min/1.73 >59 BUN/Creatinine Ratio 25 9-23 Sodium, Serum 139 mmol/L 134-144 Potassium, Serum 4.6 mmol/L 3.5-5.2 Chloride, Serum 99 mmol/L 96-106 Carbon Dioxide, Total 24 mmol/L 18-29 Calcium, Serum 10.2 mg/dL 8.7-10.2 Protein, Total, Serum 7.0 g/dL 6.0-8.5 Albumin, Serum 4.5 g/dL 3.5-5.5 Globulin, Total 2.5 g/dL 1.5-4.5 A/G Ratio 1.8 1.1-2.5 Bilirubin, Total 0.4 mg/dL 0.0-1.2 Alkaline Phosphatase, S 96 IU/L 39-117 AST (SGOT) 15 IU/L 0-40 ALT (SGPT) 20 IU/L 0-32 Complete blood count (CBC) with automated white blood cell (WBC) differential - 03/21/17 07:40 Blood leukocytes automated count (number/volume) 10.6 10*3/uL 4.3-11.0 Blood erythrocytes automated count (number/volume) 4.86 10*6/uL 4.35-5.85 Venous blood hemoglobin measurement (mass/volume) 14.9 g/dL 11.5-16.0 Blood hematocrit (volume fraction) 42 % 35-52 Automated erythrocyte mean corpuscular volume 86 [foz_us] 80-99 Automated erythrocyte mean corpuscular hemoglobin (mass per erythrocyte) 31 pg 25-34 Automated erythrocyte mean corpuscular hemoglobin concentration measurement ( mass/volume) 36 g/dL 32-36 Automated erythrocyte distribution width ratio 13.1 % 10.0-14.5 Automated blood platelet count (count/volume) 313 10*3/uL 130-400 Automated blood platelet mean volume measurement 9.7 [foz_us] 7.4-10.4 Automated blood neutrophils/100 leukocytes 93 % 42-75 Automated blood lymphocytes/100 leukocytes 3 % 12-44 Blood monocytes/100 leukocytes 4 % 0-12 Automated blood eosinophils/100 leukocytes 0 % 0-10 Automated blood basophils/100 leukocytes 0 % 0-10 Blood neutrophils automated count (number/volume) 9.9 10*3 1.8-7.8 Blood lymphocytes automated count (number/volume) 0.3 10*3 1.0-4.0 Blood monocytes automated count (number/volume) 0.4 10*3 0.0-1.0 Automated eosinophil count 0.0 10*3/uL 0.0-0.3 Automated blood basophil count (count/volume) 0.0 10*3/uL 0.0-0.1 Comprehensive metabolic panel - 03/21/17 07:40 Serum or plasma sodium measurement (moles/volume) 142 mmol/L 135-145 Serum or plasma potassium measurement (moles/volume) 3.8 mmol/L 3.6-5.0 Serum or plasma chloride measurement (moles/volume) 104 mmol/L 98-107 Carbon dioxide 23 mmol/L 21-32 Serum or plasma anion gap determination (moles/volume) 15 mmol/L 5-14 Serum or plasma urea nitrogen measurement (mass/volume) 16 mg/dL 7-18 Serum or plasma creatinine measurement (mass/volume) 0.73 mg/dL 0.60-1.30 Serum or plasma urea nitrogen/creatinine mass ratio 22 NRG Serum or plasma creatinine measurement with calculation of estimated glomerular filtration rate > NRG Serum or plasma glucose measurement (mass/volume) 116 mg/dL 70-105 Serum or plasma calcium measurement (mass/volume) 9.9 mg/dL 8.5-10.1 Serum or plasma total bilirubin measurement (mass/volume) 0.9 mg/dL 0.1-1.0 Serum or plasma alkaline phosphatase measurement (enzymatic activity/volume) 89 U/L 40-136 Serum or plasma aspartate aminotransferase measurement (enzymatic activity/ volume) 19 U/L 5-34 Serum or plasma alanine aminotransferase measurement (enzymatic activity/volume ) 25 U/L 0-55 Serum or plasma protein measurement (mass/volume) 7.7 g/dL 6.4-8.2 Serum or plasma albumin measurement (mass/volume) 4.4 g/dL 3.2-4.5 Lipase - 03/21/17 07:40 Lipase 23 U/L 8-78 Blood manual differential performed detection - 03/21/17 07:40 Blood monocytes/100 leukocytes 1 % NRG Manual blood segmented neutrophils/100 leukocytes 93 % NRG Blood band neutrophils/100 leukocytes 0 % NRG Manual blood lymphocytes/100 leukocytes 6 % NRG Manual eosinophils/100 leukocytes in nose 0 % NRG Manual blood basophils/100 leukocytes 0 % NRG Blood erythrocyte morphology finding identification NORMAL NRG CBC - 09/11/17 16:02 WHITE BLOOD CELL COUNT 8.4 Thousand/uL 3.8-10.8 RED BLOOD CELL COUNT 5.12 Million/uL 3.80-5.10 HEMOGLOBIN 15.6 g/dL 11.7-15.5 HEMATOCRIT 45.5 % 35.0-45.0 MCV 88.9 fL 80.0-100.0 MCH 30.5 pg 27.0-33.0 MCHC 34.3 g/dL 32.0-36.0 RDW 13.4 % 11.0-15.0 PLATELET COUNT 314 Thousand/uL 140-400 MPV 9.8 fL 7.5-12.5 ABSOLUTE NEUTROPHILS 4427 cells/uL 2548-8337 ABSOLUTE LYMPHOCYTES 2881 cells/uL 850-3900 ABSOLUTE MONOCYTES 689 cells/uL 200-950 ABSOLUTE EOSINOPHILS 344 cells/uL 15-500 ABSOLUTE BASOPHILS 59 cells/uL 0-200 NEUTROPHILS 52.7 % NRG LYMPHOCYTES 34.3 % NRG MONOCYTES 8.2 % NRG EOSINOPHILS 4.1 % NRG BASOPHILS 0.7 % NRG Encounters ACCT No. Visit Date/Time Discharge Status Pt. Type Provider Facility Loc./Unit Complaint [id number] 06/24/2014 12:45:00 06/24/2014 23:59:59 [facility] Outpatient MALENAL CECILIA MUNOZ [id number] 12/27/2012 15:13:00 12/27/2012 23:59:59 CLS Outpatient NOEL LACEY APRN [id number] 09/11/2017 15:20:00 09/11/2017 23:59:59 CLS Outpatient MARY PETTY [facility] [id number] 09/11/2017 15:20:00 Document Registration [id number] 03/21/2017 06:25:00 03/21/2017 09:55:00 DIS Outpatient ANNIE LIVINGSTON, JERMAN Horton [facility] ER VOMITING,DIARRHEA [id number] 09/26/2014 09:29:00 09/26/2014 23:59:59 CLS Outpatient YENI LIVINGSTON, MOHAN Obrien [facility] CARD CP DYSPNEA HTN [id number] 03/24/2013 08:49:00 03/24/2013 23:59:59 CLS Outpatient NIKI ROBERTS DO [facility] CARD PALPITATIONS [id number] 08/05/2012 06:59:00 08/05/2012 10:25:00 DIS Outpatient ANTONIO CORDERO MD [facility] SDC REFLUX,ESOPHAGITIS [id number] 08/04/2012 07:18:00 08/04/2012 23:59:59 CLS Outpatient ANTONIO CORDERO MD [facility] PREOP DYSPHAGIA [id number] 05/07/2016 08:46:00 Document Registration
[2017-09-18] MEDS ORDERED: NS IV 1000 ML 1,000 ML IV ONE (07:24)
[2017-09-18] MEDS ORDERED: LORazepam INJ 2 MG/ML (ATIVAN) VIAL IVP ONE (07:30)
[2017-09-18] MEDS ORDERED: ONDANSETRON 4 MG/2 ML (SDV) Z0FRAN IVP ONE (07:30)
[2017-09-18 07:31] LABS: BILIRUBIN,URINE NEGATIVE (NEGATIVE); CLARITY,URINE VERY CLOUDY; COLOR,URINE YELLOW; GLUCOSE, URINE (UA) NEGATIVE (NEGATIVE); KETONES,URINE NEGATIVE (NEGATIVE); LEUKOCYTE ESTERASE ,URINE 1+ (NEGATIVE); NITRITE,URINE NEGATIVE (NEGATIVE); PH,URINE 5 (5-9); PROTEIN,URINE 2+ (NEGATIVE); UROBILINOGEN,URINE NORMAL (NORMAL)
[2017-09-18 07:39] LABS: BACTERIA,URINE LARGE /HPF; RBC,URINE RARE /HPF; SQUAMOUS EPITHELIAL CELL,UR 25-50 /HPF
[2017-09-18 07:44] LABS: AMPHETAMINE SCREEN, URINE NEGATIVE (NEGATIVE); BARBITURATE SCREEN URINE NEGATIVE (NEGATIVE); BENZODIAZEPINES SCREEN URINE NEGATIVE (NEGATIVE); CANNABINOID SCREEN, URINE NEGATIVE (NEGATIVE); COCAINE SCREEN URINE NEGATIVE (NEGATIVE); METHADONE STAT NEGATIVE (NEGATIVE); METHAMPHETAMINE SCREEN URINE S NEGATIVE (NEGATIVE); OPIATE SCREEN URINE NEGATIVE (NEGATIVE); OXYCODONE STAT NEGATIVE (NEGATIVE); PROPOXYPHENE STAT NEGATIVE (NEGATIVE); TRICYCLIC ANTIDEPRESSANTS SCRE NEGATIVE (NEGATIVE)
[2017-09-18 07:59] LABS: BASOPHILS % (AUTO) 0 % (0-10); EOSINOPHILS # (AUTO) 0.1 10^3/uL (0.0-0.3); EOSINOPHILS % (AUTO) 1 % (0-10); HEMATOCRIT 44 % (35-52); HEMOGLOBIN 15.9 G/DL (11.5-16.0); LYMPHOCYTES # (AUTO) 1.6 X 10^3 (1.0-4.0); LYMPHOCYTES % (AUTO) 13 % (12-44); MEAN CORPUSCULAR HEMOGLOBIN 32 PG (25-34); MEAN CORPUSCULAR HGB CONC 36 G/DL (32-36); MEAN CORPUSCULAR VOLUME 87 FL (80-99); MEAN PLATELET VOLUME 9.7 FL (7.4-10.4); MONOCYTES # (AUTO) 0.7 X 10^3 (0.0-1.0); MONOCYTES % (AUTO) 6 % (0-12); NEUTROPHILS # (AUTO) 9.5 X 10^3 (1.8-7.8); NEUTROPHILS % (AUTO) 80 % (42-75); PLATELET COUNT 289 10^3/uL (130-400); RED BLOOD COUNT 5.03 10^6/uL (4.35-5.85); RED CELL DISTRIBUTION WIDTH 14.1 % (10.0-14.5)
[2017-09-18 08:17] LABS: ALANINE AMINOTRANSFERASE 28 U/L (0-55); ALBUMIN 4.5 GM/DL (3.2-4.5); ALKALINE PHOSPHATASE 106 U/L (40-136); BILIRUBIN,TOTAL 0.8 MG/DL (0.1-1.0); BUN/CREATININE RATIO 15; CALCIUM 10.1 MG/DL (8.5-10.1); CARBON DIOXIDE 23 MMOL/L (21-32); CHLORIDE 104 MMOL/L (98-107); CREATININE SERUM 0.73 MG/DL (0.60-1.30); GFR ESTIMATED > 60; GLUCOSE 110 MG/DL (70-105); POTASSIUM 3.7 MMOL/L (3.6-5.0); SODIUM 138 MMOL/L (135-145); TOTAL PROTEIN 7.5 GM/DL (6.4-8.2)
[2017-09-18 08:38] LABS: TSH (THYROID ANALYZER) 0.82 UIU/ML (0.35-4.94)
[2017-09-18] MEDS ORDERED: KETOROLAC 30 MG/ML VIAL IVP ONE (09:15)
--- NOTE | 2017-09-18 09:17 | ED General ---
General Chief Complaint: Psych/Social Disorder Stated Complaint: ABD PAIN,DIARRHEA Nursing Triage Note: patient reports waking up at 0130 with a 'panic attack'. patient reports that she used to have these episodes but has not had them in over 15 years. Patient reports being very nervous and anxious. patient reports that her youngest daughter is an IV drug user and has been missing Nursing Sepsis Screen: No Definite Risk Source of Information: Patient Exam Limitations: No Limitations History of Present Illness Date Seen by Provider: Sep 19, 2017 Time Seen by Provider: 06:39 Initial Comments This 56-year-old woman presents to the emergency room with complaints of dry heaving and diarrhea since 01:30 secondary to anxiety attack. Patient reports this is a response she has had 2 panic and anxiety in the past. She is having a difficult time because her daughter is an IV drug user and has been missing. Patient admits to drinking alcohol last night. She drinks 3 vodka mixed drinks which is not a routine for her. She infrequently drinks alcohol. Patient denies any suicidal or homicidal ideation at present but has had some thoughts of self-harm in the recent past. She states these are more than just fleeting thoughts but she is determined not to take action on them. She has had psychiatric admission in the past and is determined not to get to that place again. Patient secondarily complains of pain in the right lower jaw from dental caries. Allergies and Home Medications Allergies Coded Allergies: No Known Drug Allergies (Unverified , 07/21/09) Home Medications Amlodipine Besylate 5 Mg Tablet, 5 MG PO DAILY, (Reported) Amoxicillin 500 Mg Capsule, 1,000 MG PO BID Prescribed by: RAE SHAH on 09/18/17917 Hydroxyzine HCl 25 Mg Tablet, 25 MG PO TID PRN for ANXIETY Prescribed by: RAE SHAH on 09/18/17917 Losartan Potassium 50 Mg Tablet, 50 MG PO BID, (Reported) Metoprolol Tartrate 25 Mg Tablet, 25 MG PO BID, (Reported) Ondansetron 4 Mg Tab.rapdis, 4 MG SL Q4H PRN for NAUSEA/VOMITING-1ST LINE Prescribed by: RAE SHAH on 09/18/17917 Patient Home Medication List Home Medication List Reviewed: Yes Review of Systems Constitutional: no symptoms reported EENTM: no symptoms reported Respiratory: no symptoms reported Cardiovascular: no symptoms reported Gastrointestinal: see HPI Genitourinary: no symptoms reported : No Musculoskeletal: no symptoms reported Skin: no symptoms reported Psychiatric/Neurological: See HPI Hematologic/Lymphatic: No Symptoms Reported Immunological/Allergic: no symptoms reported Past Uegaslg-Hcrcjh-Wjvrak Hx Past Med/Social Hx: Reviewed and Corrections made Patient Social History Alcohol Use: Denies Use Recreational Drug Use: No Smoking Status: Current Everyday Smoker Type Used: Cigarettes 2nd Hand Smoke Exposure: Yes Recent Foreign Travel: No Contact w/Someone Who Travel: No Recent Infectious Disease Expo: No Recent Hopitalizations: No Physical Abuse: No Sexual Abuse: No Immunizations Up To Date Tetanus Booster (TDap): Unknown Seasonal Allergies Seasonal Allergies: No Past Medical History Surgeries: Yes (TIF) Abdominal (Lysis of adhesions), Adenoidectomy, Section, Gallbladder, Hysterectomy, Orthopedic (Left elbow), Tonsillectomy Respiratory: No Cardiac: Yes Hypertension Neurological: No : No Reproductive Disorders: No 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 oz. 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 Norm as Tested, Other (Very anxious, anxious tremor) Skin: Normal Color, Warm/Dry Progress/Results/Core Measures Suspected Sepsis Recent Fever Within 48 Hours: No Infection Criteria Present: None New/Unexplained Altered Menta: No Sepsis Screen: No Definite Risk SIRS Temperature:97.5 Pulse: 86 Respiratory Rate: 18 Laboratory Tests 09/18/17 07:45: White Blood Count 12.0H Blood Pressure 155 /97 Mean: 116 Laboratory Tests 09/18/17 07:45: Creatinine 0.73, Platelet Count 289, Total Bilirubin 0.8 Results/Orders Lab Results Laboratory Tests Test 09/18/17 07:22 09/18/17 07:45 Range/Units Urine Color YELLOW Urine Clarity VERY CLOUDY H Urine pH 5 5-9 Urine Specific [place] 1.020 1.016-1.022 Urine Protein 2+ H NEGATIVE Urine Glucose (UA) NEGATIVE NEGATIVE Urine Ketones NEGATIVE NEGATIVE Urine Nitrite NEGATIVE NEGATIVE Urine Bilirubin NEGATIVE NEGATIVE Urine Urobilinogen NORMAL NORMAL MG/DL Urine Leukocyte Esterase 1+ H NEGATIVE Urine RBC (Auto) 2+ H NEGATIVE Urine RBC RARE /HPF Urine WBC 5-10 H /HPF Urine Squamous Epithelial Cells 25-50 H /HPF Urine Crystals NONE /LPF Urine Bacteria LARGE H /HPF Urine Casts NONE /LPF Urine Mucus NEGATIVE /LPF Urine Culture Indicated YES Urine Opiates Screen NEGATIVE NEGATIVE Urine Oxycodone Screen NEGATIVE NEGATIVE Urine Methadone Screen NEGATIVE NEGATIVE Urine Propoxyphene Screen NEGATIVE NEGATIVE Urine Barbiturates Screen NEGATIVE NEGATIVE Ur Tricyclic Antidepressants Screen NEGATIVE NEGATIVE Urine Phencyclidine Screen NEGATIVE NEGATIVE Urine Amphetamines Screen NEGATIVE NEGATIVE Urine Methamphetamines Screen NEGATIVE NEGATIVE Urine Benzodiazepines Screen NEGATIVE NEGATIVE Urine Cocaine Screen NEGATIVE NEGATIVE Urine Cannabinoids Screen NEGATIVE NEGATIVE White Blood Count 12.0 H 4.3-11.0 10^3/uL Red Blood Count 5.03 4.35-5.85 10^6/uL Hemoglobin 15.9 11.5-16.0 G/DL Hematocrit 44 35-52 % Mean Corpuscular Volume 87 80-99 FL Mean Corpuscular Hemoglobin 32 25-34 PG Mean Corpuscular Hemoglobin Concent 36 32-36 G/DL Red Cell Distribution Width 14.1 10.0-14.5 % Platelet Count 289 130-400 10^3/uL Mean Platelet Volume 9.7 7.4-10.4 FL Neutrophils (%) (Auto) 80 H 42-75 % Lymphocytes (%) (Auto) 13 12-44 % Monocytes (%) (Auto) 6 0-12 % Eosinophils (%) (Auto) 1 0-10 % Basophils (%) (Auto) 0 0-10 % Neutrophils # (Auto) 9.5 H 1.8-7.8 X 10^3 Lymphocytes # (Auto) 1.6 1.0-4.0 X 10^3 Monocytes # (Auto) 0.7 0.0-1.0 X 10^3 Eosinophils # (Auto) 0.1 0.0-0.3 10^3/uL Basophils # (Auto) 0.0 0.0-0.1 10^3/uL Sodium Level 138 135-145 MMOL/L Potassium Level 3.7 3.6-5.0 MMOL/L Chloride Level 104 98-107 MMOL/L Carbon Dioxide Level 23 21-32 MMOL/L Anion Gap 11 5-14 MMOL/L Blood Urea Nitrogen 11 7-18 MG/DL Creatinine 0.73 0.60-1.30 MG/DL Estimat Glomerular Filtration Rate > 60 BUN/Creatinine Ratio 15 Glucose Level 110 H 70-105 MG/DL Calcium Level 10.1 8.5-10.1 MG/DL Total Bilirubin 0.8 0.1-1.0 MG/DL Aspartate Amino Transf (AST/SGOT) 29 5-34 U/L Alanine Aminotransferase (ALT/SGPT) 28 0-55 U/L Alkaline Phosphatase 106 40-136 U/L Total Protein 7.5 6.4-8.2 GM/DL Albumin 4.5 3.2-4.5 GM/DL TSH [place] Testing 0.82 0.35-4.94 UIU/ML Serum Alcohol < 10 <10 MG/DL Micro Results Microbiology 09/18/17 Urine Culture - Preliminary, [facility] My Orders Orders - RAE TIMMONS MD Alcohol (09/18/17 07:24) Cbc With Automated Diff (09/18/17 07:24) Comprehensive Metabolic Panel (09/18/17 07:24) Drug Screen Stat (Urine) (09/18/17 07:24) Thyroid Analyzer (09/18/17 07:24) Ua Culture If Indicated (09/18/17 07:24) Saline Lock/Iv-Start (09/18/17 07:24) Ns Iv 1000 Ml (Sodium Chloride 0.9%) (09/18/17 07:24) Lorazepam Injection (Ativan Injection) (09/18/17 07:30) Ondansetron Injection (Zofran Injectio (09/18/17 07:30) Urine Culture (09/18/17 07:22) Ketorolac Injection (Toradol Injection) (09/18/17 09:15) Medications Given in ED Vital Signs/I&O Capillary Refill : Less Than 3 Seconds Blood Pressure Mean: 116 Progress Note : Progress Note Patient was treated with Ativan, Zofran, and IV fluids. Labs were assessed. Patient was thought to have mild urinary tract infection based on urinalysis. She also has dental pain from dental caries on the right lower jaw. Amoxicillin was prescribed for these issues. Toradol was given for jaw/dental pain. Patient was strongly encouraged to follow up with the behavioral health provider. She was given the SAVE line number as well. Hydroxyzine was prescribed for anxiety. Departure Impression Primary Impression: Anxiety Additional Impressions: Nausea and vomiting Qualified Codes: R11.2 - Nausea with vomiting, unspecified Urinary tract infection Qualified Codes: N39.0 - Urinary tract infection, site not specified Depression Qualified Codes: F32.9 - Major depressive disorder, single episode, unspecified Dental caries Pain, dental Disposition: 01 HOME, SELF-CARE Condition: Improved Departure-Patient Inst. Decision time for Depature: 09:13 Ref[place]: [facility] [place] Primary Care Physician Patient Instructions: Anxiety, Adult (DC), Dental Pain Add. Discharge Instructions: For your anxiety use hydroxyzine as prescribed. If you have escalating symptoms or thoughts of harming herself or someone else, please call 363 or ([phone]). Please establish with a behavioral health provider as soon as possible. For your dental pain you may take ibuprofen up to 600 mg every 6 hours as needed. Add Tylenol (acetaminophen) up to 1000 mg every 6 hours as needed for additional pain relief. Please see a dentist as soon as possible. [place] your teeth gently twice daily. Complete your antibiotic as prescribed. Follow-up with your primary care provider soon as possible. Review urine culture results with your primary care provider. Drink plenty of clear liquids. Use Zofran (ondansetron) as prescribed for nausea and vomiting. All discharge instructions reviewed with patient and/or family. Voiced understanding. Scripts Hydroxyzine HCl (Hydroxyzine HCl) 25 Mg Tablet 25 MG PO TID PRN for ANXIETY, #20 TAB Prov: RAE TIMMONS MD 09/18/17 Ondansetron (Zofran Odt) 4 Mg Tab.rapdis 4 MG SL Q4H PRN for NAUSEA/VOMITING-1ST LINE, #10 TAB Prov: RAE TIMMONS MD 09/18/17 Amoxicillin (Amoxicillin) 500 Mg Capsule 1000 MG PO BID, #40 CAP Prov: RAE TIMMONS MD 09/18/17 Copy Copies To 1: KRISTA MARIE MD, JOSHUA T MD Sep 18, 2017 09:17
[2017-09-18] MEDS ORDERED: ONDA4TAB8 SL (09:18)
[2017-09-18] MEDS ORDERED: HYDR-700 PO (09:18)
[2017-09-18] MEDS ORDERED: AMOX500C2 PO (09:18)
[2017-09-18 09:27] VITALS: BP 155/97
== END 2017-09-18 09:27 | disposition home or self-care (01) ==
LOC: EDUNIT# 06:23 → ER 06:25
DX: F41.0 Panic disorder [episodic paroxysmal anxiety] (principal); N39.0 Urinary tract infection, site not specified; K02.9 Dental caries, unspecified; F32.9 Major depressive disorder, single episode, unspecified; I10 Essential (primary) hypertension; K21.9 Gastro-esophageal reflux disease without esophagitis; F17.210 Nicotine dependence, cigarettes, uncomplicated; Z90.89 Acquired absence of other organs; Z91.5 Personal history of self-harm; Z87.59 Personal history of other complications of pregnancy, childbirth and the puerperium; Z90.710 Acquired absence of both cervix and uterus
CPT/HCPCS: 36415; 80053; 80306; 80320; 81000; 84443; 85025; 87088; 96361; 96374; 96375

== ENCOUNTER 2017-11-20 11:43 | Observation (INO) | payer BC, OTHER ==
[~2017-11-20] VITALS: Ht 162.6 cm; Wt 65.4 kg
[~2017-11-20 11:43] MED LIST changes: +AMLO5TAB4 PO; +AMOX500C2 PO; +HYDR-700 PO; +HYDR25TA4 PO; +LOSA50TA7 PO; +METO-333 PO; +ONDA4TAB8 SL
--- OUTSIDE RECORDS SUMMARY | 2017-11-20 11:48 | XMS REPORT ---
Author Author ALBINO VITALE Apryl [facility] Address Unknown Care Team Providers Care Obedience Trainer Name Role Phone ALBINO VITALE Unavailable PROBLEMS Type Condition ICD9-CM Code AZZ91-ED Code Onset Dates Condition Status SNOMED Code Problem Essential hypertension I10 Active 01124528 Problem Anxiety F41.9 Active 59123068 Problem Panic attacks F41.0 Active 640828037 Problem Primary insomnia F51.01 Active 1685611 Problem Stress incontinence, female N39.3 Active 64418393 Problem Left foot pain M79.672 Active 544239754327561 Problem Seasonal allergic rhinitis due to pollen J30.1 Active 42621118 ALLERGIES No Known Allergies ENCOUNTERS Encounter Location Date Diagnosis [facility] [address] [address] 17 Oct, 2017 Gastroenteritis K52.[address]0 [facility] [address] [address] Oct, [facility] [address] [address] Oct, [facility] [address] [address] Sep, [facility] [address] [address] Sep, Chronic diarrhea K52.9 [facility] [address] [address] Sep, [facility] [address] [id number] Sep, 2017 Dental caries K02.9 and Dental examination Z01.20 [facility] [address] [address] Sep, Encounter for screening for dental disorder Z13.84 [place] [address] [address] Sep, Dental caries K02.9 ; Anxiety F41.9 ; Acute diarrhea R19.7 and Low blood pressure reading R03.1 [place] [address] [address] Sep, [place] [address] [address] Aug, Panic attacks F41.0 [place] [address] [address] Aug, Essential hypertension I10 [place] [address] [address] Aug, Essential hypertension I10 ; Stress incontinence, female N39.3 and Seasonal allergic rhinitis due to pollen J30.1 [place] [address] [address] Jul, Essential hypertension I10 [place] [address] [address] May, Medication refill Z76.0 and Left foot pain M79.672 [place] [address] [address] May, Essential hypertension I10 [place] [address] [address] Nov, Left ankle effusion M25.472 [place] [address] [address] Nov, Essential hypertension I10 ; Primary insomnia F51.01 and Left ankle effusion M25.472 [place] [address] [address] 15 Oct, 2016 Essential hypertension I10 [place] [address] [place] [id number] [place] [address] Apr, [place] [address] [address] Apr, Essential hypertension I10 ; Primary insomnia F51.01 ; Stress incontinence, female N39.3 and Postmenopausal Z78.0 [place] [id number] [place] [address] Apr, Essential hypertension I10 [place] [address] [address] Mar, Essential hypertension I10 [facility] [address] [address] Dec, Fever, unspecified fever cause R50.9 and Left otitis media , unspecified chronicity, unspecified otitis media type H66.92 [place] [address] [id number] Nov, Pharyngitis, unspecified etiology J02.9 ; Seasonal allergic rhinitis due to pollen J30.1 ; Cough R05 and Smoker unmotivated to quit F17.210 [place] [address] [place] [id number] [place] [phone] Nov, Encounter for immunization Z23 [place] [address] [place] [id number] [place] [address] Aug, Essential hypertension I10 ; Primary insomnia F51.01 and Stress incontinence, female N39.3 [facility] [address] [place] [id number] [place] [address] Aug, Sore throat J02.9 [place] [address] [place] [id number] [place] [id number] Apr, Insect bite W57.XXXA [place] [address] [place] [id number] [place] [address] Nov, Encounter for immunization Z23 [place] [address] [place] [id number] [address] Oct, Hypertension 401.[address] [facility] [address] [place] [address] Sep, [facility] [address] [address] Sep, [facility] [address] [place] [id number] [place] [address] Sep, [facility] [address] [place] [id number] [place] [address] Sep, [facility] [address] [place] [id number] [place] [address] Aug, [facility] [address] [id number] [place] [address] Aug, [facility] [address] [place] [id number] [place] [address] Aug, [facility] [address] [address] June, Chest pain 786.50 ; Nicotine dependence 305.1 and Hypertension, essential, benign 401.1 [facility] [address] [address] Nov, [facility] [address] [address] Nov, IMMUNIZATIONS No Known Immunizations SOCIAL HISTORY Never Assessed REASON FOR VISIT Dental Exam- abscess PLAN OF CARE Activity Details Follow Up prn Reason:rachna/hygiene VITAL SIGNS Height 64 in 2017-10-06 Blood pressure systolic 101 mmHg 2017-10-06 Blood pressure diastolic 53 mmHg 2017-10-06 MEDICATIONS Medication Instructions Dosage Frequency Start Date End Date Duration Status Sertraline HCl 50 mg Orally Once a day 1 tablet 24h Aug, 30 day (s) Not-Taking Clonazepam 0.5 MG Orally 2 times a day 1 tablet as needed 12h Aug, 30 days Active Zofran Active Metoprolol Tartrate 100 MG Orally Twice a day 1 tablet 12h Active Hydrochlorothiazide 25 MG Orally Once a day-Must be seen for refills 1 tablet 30 days Active Losartan Potassium 100 mg Orally Once a day 1 tablet 24h 60 Active Amlodipine Besylate 5 mg Orally Once a day-Must be seen for refils 1 tablet 30 days Active RESULTS No Results PROCEDURES Procedure Date Ordered Result Body Site LTD ORAL EVALUATION - PROBLEM FOCUS Oct 06, 2017 EXTRAC ERUPTED TOOTH/EXPOSED ROOT Oct 06, 2017 INSTRUCTIONS MEDICATIONS ADMINISTERED No Known Medications MEDICAL [...]
--- OUTSIDE RECORDS SUMMARY | 2017-11-20 11:48 | XMS REPORT ---
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 Name Role Phone PEREIRA VALERIO Unavailable PROBLEMS Type Condition ICD9-CM Code RFS40-MO Code Onset Dates Condition Status SNOMED Code Problem Essential hypertension I10 Active 02297589 Problem Anxiety F41.9 Active 60806215 Problem Panic attacks F41.0 Active 766840160 Problem Primary insomnia F51.01 Active 0540946 Problem Stress incontinence, female N39.3 Active 86327621 Problem Left foot pain M79.672 Active 391064659579854 Problem Seasonal allergic rhinitis due to pollen J30.1 Active 64437892 ALLERGIES No Known Allergies ENCOUNTERS Encounter Location Date Diagnosis [facility] [address] [place] [id number] [place] [address] 17 Oct, 2017 Gastroenteritis K52.9 and Panic attacks F41.0 [facility] [address] [place] [id number] [place] [address] Oct, [facility] [address] [place] [id number] [place] [address] Oct, [facility] [address] [place] [id number] [place] [address] Sep, [facility] [address] [place] [id number] [place] [address] Sep, Chronic diarrhea K52.9 [facility] [address] [place] [id number] [place] [address] Sep, [facility] [address] [place] [id number] [place] [id number] [phone] Sep, 2017 Dental caries K02.9 and Dental examination Z01.20 [place] [address] [address] 07 Sep, 2017 Encounter for screening for dental disorder Z13.84 [place] [address] [address] 07 Sep, 2017 Dental caries K02.9 ; Anxiety F41.9 ; Acute diarrhea R19.7 and Low blood pressure reading R03.1 [place] [address] [address] Sep, [place] [address] [address] Aug, Panic attacks F41.0 [place] [address] [address] Aug, Essential hypertension I10 [address] [address] Aug, Essential hypertension I10 ; Stress incontinence, female N39.3 and Seasonal allergic rhinitis due to pollen J30.1 [place] [address] [address] Jul, Essential hypertension I10 [place] [address] [address] May, Medication refill Z76.0 and Left foot pain M79.672 [place] [address] [address] May, Essential hypertension I10 [place] [address] [address] Nov, Left ankle effusion M25.472 [place] [address] [address] Nov, Essential hypertension I10 ; Primary insomnia F51.01 and Left ankle effusion M25.472 [place] [address] [address] Oct, Essential hypertension I10 [facility] [address] [place] [id number] [place] [address] Apr, [place] [address] [address] Apr, Essential hypertension I10 ; Primary insomnia F51.01 ; Stress incontinence, female N39.3 and Postmenopausal Z78.[address] [address] Apr, Essential hypertension I10 [address] [address] Mar, Essential hypertension I10 [facility] [address] [address] Dec, Fever, unspecified fever cause R50.9 and Left otitis media , unspecified chronicity, unspecified otitis media type H66.92 [place] [address] [id number] Nov, Pharyngitis, unspecified etiology J02.9 ; Seasonal allergic rhinitis due to pollen J30.1 ; Cough R05 and Smoker unmotivated to quit F17.[address] [id number] Nov, Encounter for immunization Z23 [address] [address] Aug, Essential hypertension I10 ; Primary insomnia F51.01 and Stress incontinence, female N39.3 [facility] [address] [place] [id number] [place] [address] Aug, Sore throat J02.9 [facility] [address] [id number] Apr, Insect bite W57.XXXA [address] [address] Nov, Encounter for immunization Z23 [facility] [address] [address] Oct, Hypertension 401.9 and Insomnia 780.52 [facility] [address] [address] Sep, [facility] [address] [place] [id number] [address] Sep, [facility] [address] [place] [id number] [address] Sep, [facility] [address] [place] [id number] [place] [address] Sep, [facility] [address] [place] [id number] [place] [address]- [address] Aug, [facility] [address] [place] [id number] [place] [address]- [address] Aug, [facility] [address] [place] [id number], [place] [address] Aug, [facility] [address] [place] [id number] [place] [address] June, Chest pain 786.50 ; Nicotine dependence 305.1 and Hypertension, essential, benign 401.1 [facility] [address], [place] [address] Nov, [facility] [address], [place] [address] Nov, IMMUNIZATIONS No Known Immunizations SOCIAL HISTORY Never Assessed REASON FOR VISIT tooth pain PLAN OF CARE Activity Details Follow Up today Reason:TE #30 VITAL SIGNS MEDICATIONS Medication Instructions Dosage Frequency Start Date End Date Duration Status Metoprolol Tartrate 100 MG Orally Twice a day 1 tablet 12h Active Sertraline HCl 50 mg Orally Once a day 1 tablet 24h Aug, 30 day (s) Not-Taking Hydrochlorothiazide 25 MG Orally Once a day-Must be seen for refills 1 tablet 30 days Active Clonazepam 0.5 MG Orally 2 times a day 1 tablet as needed 12h 24 Aug, 2017 30 days Active Zofran Active Amlodipine Besylate 5 mg Orally Once a day-Must be seen for refils 1 tablet 30 days Active Losartan Potassium 100 mg Orally Once a day 1 tablet 24h 60 Active RESULTS No Results PROCEDURES Procedure Date Ordered Result Body Site INTRAORL-PERIAPICAL 1 FILM [id number] Oct 06, 2017 BITEWING - SINGLE FILM Oct 06, 2017 Billing Notes on claim Oct 06, 2017 SCREENING OF A PATIENT Oct 06, 2017 INSTRUCTIONS MEDICATIONS ADMINISTERED No [...]
--- OUTSIDE RECORDS SUMMARY | 2017-11-20 11:49 | XMS REPORT ---
Author Author MARY PETTY Organization [facility] Address [address] [place] [address] Care Team Providers Care Csr Retail Name Role Phone MARY PETTY Unavailable PROBLEMS Type Condition ICD9-CM Code [id number] Code Onset Dates Condition Status SNOMED Code Problem Essential hypertension I10 Active 84791963 Problem Anxiety F41.9 Active 61362345 Problem Panic attacks F41.0 Active 467553378 Problem Primary insomnia F51.01 Active 7122475 Problem Stress incontinence, female N39.3 Active 48847725 Problem Left foot pain M79.672 Active 746381757808061 Problem Seasonal allergic rhinitis due to pollen J30.1 Active 25558627 ALLERGIES No Known Allergies ENCOUNTERS Encounter Location Date Diagnosis [facility] [id number] [place] [address] 80127- 0100 17 Oct, 2017 Gastroenteritis K52.9 and Panic attacks F41.0 [facility] [id number] [place] [address] 39267- 2810 Oct, [facility] [id number] [place] [address] 58197- 3940 Oct, [facility] [id number] [place] [address] 88507- 5817 Sep, [facility] [id number] [place] [address] 25000- 8727 Sep, Chronic diarrhea K52.9 [facility] [address] 83459- 3639 Sep, [facility] [id number] [place] [address] [id number] 07 Sep, 2017 Dental caries K02.9 and Dental examination Z01.20 [facility] [address] 99058- 3482 07 Sep, 2017 Encounter for screening for dental disorder Z13.84 [place] [address] 46434- 0134 07 Sep, 2017 Dental caries K02.9 ; Anxiety F41.9 ; Acute diarrhea R19.7 and Low blood pressure reading R03.1 [place] [address] 97033- 6829 Sep, [place] [address] 06397- 3637 Aug, Panic attacks F41.[address] 38413- 3972 Aug, Essential hypertension I10 [address] 49972- 5092 Aug, Essential hypertension I10 ; Stress incontinence, female N39.3 and Seasonal allergic rhinitis due to pollen J30.1 [place] [address] 14895- 9927 Jul, Essential hypertension I10 [place] [address] 06537- 6533 May, Medication refill Z76.0 and Left foot pain M79.672 [place] [address] 37865- 5017 May, Essential hypertension I10 [place] [address] 33648- 3091 Nov, Left ankle effusion M25.[address] 74244- 3884 Nov, Essential hypertension I10 ; Primary insomnia F51.01 and Left ankle effusion M25.472 [place] [address] 52116- 8466 Oct, Essential hypertension I10 [facility] [id number] [place] [address] 41489- 7169 Apr, [facility] [address] 63089- 3485 Apr, Essential hypertension I10 ; Primary insomnia F51.01 ; Stress incontinence, female N39.3 and Postmenopausal Z78.0 [place] [address] 87447- 5968 Apr, Essential hypertension I10 [place] [address] 75333- 2482 Mar, Essential hypertension I10 [facility] [address] [place] [address] 04347 -0476 Dec, Fever, unspecified fever cause R50.9 and Left otitis media , unspecified chronicity, unspecified otitis media type H66.92 [facility] [address] [id number] Nov, Pharyngitis, unspecified etiology J02.9 ; Seasonal allergic rhinitis due to pollen J30.1 ; Cough R05 and Smoker unmotivated to quit F17.210 [place] [address] [id number] Nov, Encounter for immunization Z23 [place] [address] 15413- 9679 Aug, Essential hypertension I10 ; Primary insomnia F51.01 and Stress incontinence, female N39.3 [facility] [address] 12706 -2420 Aug, Sore throat J02.9 [facility] [address] [id number] Apr, Insect bite W57.XXXA [place] [address] 67145- 2301 Nov, Encounter for immunization Z23 [facility] [address] [address] 6074 Oct, Hypertension 401.9 and Insomnia 780.52 [facility] [address] [address] 9831 Sep, [facility] [address] [address]- 3565 Sep, [facility] [id number] [place] [address] 64787- 2150 Sep, [facility] [id number] [place] [address] 15180- 0282 Sep, [facility] [id number] [place] [address] 00879- 5474 Aug, [facility] [id number] [place] [address] 32355- 8313 Aug, [facility] [id number] [place] [address] 95580- 0409 Aug, [facility] [id number] [place] [address] 09049- 8363 June, Chest pain 786.50 ; Nicotine dependence 305.1 and Hypertension, essential, benign 401.1 [facility] [address], [place] [address]- 7370 Nov, [facility] [address] [place] [address]- 1235 Nov, IMMUNIZATIONS No Known Immunizations SOCIAL HISTORY Never Assessed REASON FOR VISIT Anxiety-DORIS kaiser, infected tooth, right side of face hurt, right ear huts PLAN OF CARE Activity Details Follow Up prn Reason: VITAL SIGNS Height 64 in 2017-10-06 Weight 149.8 lbs 2017-10-06 Temperature 97.9 degrees Fahrenheit 2017-10-06 Heart Rate 49 bpm 2017-10-06 Respiratory Rate 18 2017-10-06 BMI 25.71 kg/m2 2017-10-06 Blood pressure systolic 90 mmHg 2017-10-06 Blood pressure diastolic 68 mmHg 2017-10-06 MEDICATIONS Medication Instructions Dosage Frequency Start Date End Date Duration Status Sertraline HCl 50 mg Orally Once a day 1 tablet 24h Aug, 30 day (s) Active Metoprolol Tartrate 100 MG Orally Twice a day 1 tablet 12h Active Clonazepam 0.5 MG Orally 2 times a day 1 tablet as needed 12h Aug, 30 days Active Amlodipine Besylate 5 mg Orally Once a day-Must be seen for refils 1 tablet 30 days Active Hydrochlorothiazide 25 MG Orally Once a day-Must be seen for refills 1 tablet 30 days Active Zofran Active Losartan Potassium 100 mg Orally Once a day 1 tablet 24h 60 Active RESULTS No Results PROCEDURES No Known [...]
--- OUTSIDE RECORDS SUMMARY | 2017-11-20 11:49 | XMS REPORT ---
Author Author MARY PETTY Organization [facility] Address [address] [place] [address] Care Team Providers Care Student Services Advisor Name Role Phone MARY PETTY Unavailable PROBLEMS Type Condition ICD9-CM Code FMM27-NO Code Onset Dates Condition Status SNOMED Code Problem Essential hypertension I10 Active 61920293 Problem Anxiety F41.9 Active 21836828 Problem Panic attacks F41.0 Active 227643791 Problem Primary insomnia F51.01 Active 2350269 Problem Stress incontinence, female N39.3 Active 13884725 Problem Left foot pain M79.672 Active 374923463709776 Problem Seasonal allergic rhinitis due to pollen J30.1 Active 06772721 ALLERGIES No Known Allergies ENCOUNTERS Encounter Location Date Diagnosis [facility] [id number] [place] [address] 92561- 7182 Oct, [facility] [address] 88061- 4543 Oct, [facility] [id number] [place] [address] 46242- 8335 Sep, [facility] [id number] [place] [address] 99608- 0747 Sep, Chronic diarrhea K52.9 [facility] [id number] [place] [address] 84398- 0028 Sep, [facility] [id number] [place] [address] [id number] Sep, Dental caries K02.9 and Dental examination Z01.20 [facility] [id number] [place] [address] 41862- 2109 Sep, Encounter for screening for dental disorder Z13.84 [facility] [id number] [place] [address] 33162- 5647 07 Sep, 2017 Dental caries K02.9 ; Anxiety F41.9 ; Acute diarrhea R19.7 and Low blood pressure reading R03.1 [place] [id number] [place] [address] 89724- 7925 Sep, [place] [address] 77433- 9441 Aug, Panic attacks F41.0 [place] [address] 64473- 9845 Aug, Essential hypertension I10 [place] [address] 95603- 2442 Aug, Essential hypertension I10 ; Stress incontinence, female N39.3 and Seasonal allergic rhinitis due to pollen J30.1 [place] [address] 87251- 5258 Jul, Essential hypertension I10 [place] [address] 40939- 6857 May, Medication refill Z76.0 and Left foot pain M79.672 [place] [address] 72759- 6512 May, Essential hypertension I10 [place] [id number] [place] [address] 00831- 4847 Nov, Left ankle effusion M25.472 [place] [address] 42495- 1723 Nov, Essential hypertension I10 ; Primary insomnia F51.01 and Left ankle effusion M25.472 [place] [address] 74745- 9586 15 Oct, 2016 Essential hypertension I10 [place] [id number] [place] [address] 74892- 5182 Apr, [place] [id number] [place] [address] 72907- 7262 Apr, Essential hypertension I10 ; Primary insomnia F51.01 ; Stress incontinence, female N39.3 and Postmenopausal Z78.0 [facility] [id number] [place] [address] 20657- 0590 14 Apr, 2016 Essential hypertension I10 [place] [address] 37627- 2970 Mar, Essential hypertension I10 [facility] [address] 28938 -9352 Dec, Fever, unspecified fever cause R50.9 and Left otitis media , unspecified chronicity, unspecified otitis media type H66.92 [facility] [address] [id number] Nov, Pharyngitis, unspecified etiology J02.9 ; Seasonal allergic rhinitis due to pollen J30.1 ; Cough R05 and Smoker unmotivated to quit F17.210 [facility] [address] [id number] Nov, Encounter for immunization Z23 [place] [address] 59866- 4552 Aug, Essential hypertension I10 ; Primary insomnia F51.01 and Stress incontinence, female N39.3 [facility] [address] 85260 -1223 Aug, Sore throat J02.9 [facility] [id number] [place] [address] [id number] Apr, Insect bite W57.XXXA [place] [address] 40424- 9729 Nov, Encounter for immunization Z23 [place] [id number] [place] [address] 08495- 4630 09 Oct, 2014 Hypertension 401.9 and Insomnia 780.52 [facility] [address] [address]- 1320 Sep, [facility] [address] [address]- 2297 Sep, [facility] [address] [address]- 2188 Sep, [facility] [id number] [place] [address] 02610- 3397 Sep, [facility] [address] [address]- 8976 Aug, [facility] [id number] [place] [address] 90128- 5948 Aug, [facility] [id number] [address]- 6671 Aug, [facility] [address] [address]- 3319 June, Chest pain 786.50 ; Nicotine dependence 305.1 and Hypertension, essential, benign 401.1 [facility] [address] [address]- 7276 Nov, [facility] [address] [address]- 0734 Nov, IMMUNIZATIONS No Known Immunizations SOCIAL HISTORY Never Assessed REASON FOR VISIT [facility] f/phani Jacobson MA PLAN OF CARE Activity Details Follow Up 2 Weeks Reason:panic attacks VITAL SIGNS Height 64 in 2017-09-22 Weight 155 lbs 2017-09-22 Temperature 98.1 degrees Fahrenheit 2017-09-22 Heart Rate 56 bpm 2017-09-22 Respiratory Rate 18 2017-09-22 Oximetry on room air:93 % 2017-09-22 BMI 26.60 kg/m2 2017-09-22 Blood pressure systolic 100 mmHg 2017-09-22 Blood pressure diastolic 70 mmHg 2017-09-22 MEDICATIONS Medication Instructions Dosage Frequency Start Date End Date Duration Status Amlodipine Besylate 5 mg Orally Once a day-Must be seen for refils 1 tablet 30 days Active Clonazepam 0.5 MG Orally 2 times a day 1 tablet as needed 12h Aug, 30 days Active Sertraline HCl 50 mg Orally Once a day 1 tablet 24h Aug, 30 day (s) Active Hydrochlorothiazide 25 MG Orally Once a day-Must be seen for refills 1 tablet 30 days Active Metoprolol Tartrate 100 MG Orally Twice a day 1 tablet 12h Active Zofran Active Losartan Potassium 100 mg [...]
--- OUTSIDE RECORDS SUMMARY | 2017-11-20 11:49 | XMS REPORT ---
Author Author MARY PETTY Organization [facility] Address [address] [place] [address] Care Team Providers Care Heel Seam Rubber Name Role Phone MARY PETTY Unavailable PROBLEMS Type Condition ICD9-CM Code SCE39-HH Code Onset Dates Condition Status SNOMED Code Problem Essential hypertension I10 Active 41722379 Problem Anxiety F41.9 Active 27151889 Problem Panic attacks F41.0 Active 326705067 Problem Primary insomnia F51.01 Active 1141513 Problem Stress incontinence, female N39.3 Active 18045494 Problem Left foot pain M79.672 Active 961413858037090 Problem Seasonal allergic rhinitis due to pollen J30.1 Active 65238682 ALLERGIES No Information ENCOUNTERS Encounter Location Date Diagnosis [facility] [id number] [place] [address] 09393- 0638 17 Oct, 2017 Gastroenteritis K52.9 and Panic attacks F41.0 [facility] [id number] [place] [address] 28960- 5112 Oct, [facility] [id number] [place] [address] 84607- 9916 Oct, [facility] [id number] [place] [address] 49314- 0693 Sep, [facility] [id number] [place] [address] 93436- 8921 Sep, Chronic diarrhea K52.9 [facility] [address] 82825- 3893 Sep, [facility] [id number] [place] [address] [id number] 07 Sep, 2017 Dental caries K02.9 and Dental examination Z01.20 [facility] [address] 06007- 4655 07 Sep, 2017 Encounter for screening for dental disorder Z13.84 [place] [address] 20983- 7291 07 Sep, 2017 Dental caries K02.9 ; Anxiety F41.9 ; Acute diarrhea R19.7 and Low blood pressure reading R03.[address] 58715- 5271 Sep, [place] [address] 47668- 1309 Aug, Panic attacks F41.[address] 94406- 5193 Aug, Essential hypertension I[address] 06085- 7181 Aug, Essential hypertension I10 ; Stress incontinence, female N39.3 and Seasonal allergic rhinitis due to pollen J30.1 [place] [address] 83836- 6720 Jul, Essential hypertension I[address] 65155- 1356 May, Medication refill Z76.0 and Left foot pain M79.[address] 49752- 6520 May, Essential hypertension I10 [place] [address] 65272- 0813 Nov, Left ankle effusion M25.[address] 50524- 3319 Nov, Essential hypertension I10 ; Primary insomnia F51.01 and Left ankle effusion M25.472 [place] [address] 88188- 6838 15 Oct, 2016 Essential hypertension I10 [facility] [id number] [place] [address] 45813- 6694 Apr, [facility] [address] 84492- 9141 Apr, Essential hypertension I10 ; Primary insomnia F51.01 ; Stress incontinence, female N39.3 and Postmenopausal Z78.0 [place] [address] 99818- 2225 Apr, Essential hypertension I10 [place] [address] 22477- 7049 Mar, Essential hypertension I10 [facility] [address] [place] [address] 48499 -0540 Dec, Fever, unspecified fever cause R50.9 and Left otitis media , unspecified chronicity, unspecified otitis media type H66.92 [facility] [address] [id number] Nov, Pharyngitis, unspecified etiology J02.9 ; Seasonal allergic rhinitis due to pollen J30.1 ; Cough R05 and Smoker unmotivated to quit F17.210 [place] [address] [id number] Nov, Encounter for immunization Z23 [place] [id number] [place] [address] 31506- 8803 Aug, Essential hypertension I10 ; Primary insomnia F51.01 and Stress incontinence, female N39.3 [facility] [id number] [place] [address] 71008 -4162 Aug, Sore throat J02.9 [facility] [address] [id number] Apr, Insect bite W57.XXXA [place] [address] 30588- 8131 Nov, Encounter for immunization Z23 [facility] [address] [address]- 8489 Oct, Hypertension 401.9 and Insomnia 780.52 [facility] [id number] [place] [address] 49065- 1951 Sep, [facility] [id number] [place] [address] 37155- 0667 Sep, [facility] [id number] [place] [address] 81371- 6571 Sep, [facility] [id number] [place] [address] 61046- 7104 Sep, [facility] [id number] [place] [address] 36337- 1879 Aug, [facility] [id number] [place] [address] 15746- 0683 Aug, [facility] [id number] [place] [address] 89971- 4208 Aug, [facility] [id number] [place] [address] 53479- 5980 June, Chest pain 786.50 ; Nicotine dependence 305.1 and Hypertension, essential, benign 401.1 [facility] [address] [address]- 6397 Nov, [facility] [id number] [place] [address] 71288- 4614 Nov, IMMUNIZATIONS No Known Immunizations SOCIAL HISTORY Never Assessed REASON FOR VISIT continued symptoms PLAN OF CARE VITAL SIGNS MEDICATIONS Unknown [...]
--- OUTSIDE RECORDS SUMMARY | 2017-11-20 11:49 | XMS REPORT ---
Author Author MARY PETTY Organization [facility] Address [address] [place] [address] Care Team Providers Care Wet Machine Operator Name Role Phone MARY PETTY Unavailable PROBLEMS Type Condition ICD9-CM Code NUH02-CZ Code Onset Dates Condition Status SNOMED Code Problem Essential hypertension I10 Active 95130566 Problem Anxiety F41.9 Active 06915237 Problem Panic attacks F41.0 Active 995852834 Problem Primary insomnia F51.01 Active 7700258 Problem Stress incontinence, female N39.3 Active 64076147 Problem Left foot pain M79.672 Active 622862692357746 Problem Seasonal allergic rhinitis due to pollen J30.1 Active 33571774 ALLERGIES No Information ENCOUNTERS Encounter Location Date Diagnosis [facility] [address] [address] Oct, [facility] [address] [address] 270[address] 04 Oct, 2017 [facility] [address] [id number] [place] [address] 62342- 3887 Sep, [facility] [id number] [place] [address] 68708- 4804 Sep, Chronic diarrhea K52.9 [facility] [id number] [place] [address] 08950- 6879 Sep, [facility] [address] [id number] Sep, Dental caries K02.9 and Dental examination Z01.20 [facility] [id number] [place] [address] 51572- 0026 Sep, Encounter for screening for dental disorder Z13.84 [facility] [address] [place] [address] [address] 07 Sep, 2017 Dental caries K02.9 ; Anxiety F41.9 ; Acute diarrhea R19.7 and Low blood pressure reading R03.1 [place] [address] [id number] [place] [address] 22395- 8874 Sep, [place] [address] 45269- 4330 Aug, Panic attacks F41.0 [place] [address] 37731- 3285 Aug, Essential hypertension I10 [place] [address] 73819- 2295 Aug, Essential hypertension I10 ; Stress incontinence, female N39.3 and Seasonal allergic rhinitis due to pollen J30.1 [place] [address] 87551- 2732 Jul, Essential hypertension I10 [place] [address] 45914- 1615 May, Medication refill Z76.0 and Left foot pain M79.672 [place] [address] 85933- 3796 May, Essential hypertension I10 [place] [address] [place] [id number] [place] [address] 52650- 7991 Nov, Left ankle effusion M25.472 [place] [address] 88468- 4949 Nov, Essential hypertension I10 ; Primary insomnia F51.01 and Left ankle effusion M25.472 [place] [address] 61063- 4985 15 Oct, 2016 Essential hypertension I10 [place] [address] [place] [id number] [place] [address] 76887- 6839 Apr, [place] [id number] [place] [address] 25533- 0583 Apr, Essential hypertension I10 ; Primary insomnia F51.01 ; Stress incontinence, female N39.3 and Postmenopausal Z78.0 [place] [address] 76494- 4944 14 Apr, 2016 Essential hypertension I10 [place] [address] 08063- 7535 Mar, Essential hypertension I10 [facility] [place] [address] [address] Dec, Fever, unspecified fever cause R50.9 and Left otitis media , unspecified chronicity, unspecified otitis media type H66.92 [place] [address] [id number] Nov, Pharyngitis, unspecified etiology J02.9 ; Seasonal allergic rhinitis due to pollen J30.1 ; Cough R05 and Smoker unmotivated to quit F17.210 [place] [address] [id number] Nov, Encounter for immunization Z23 [place] [address] 20936- 0355 Aug, Essential hypertension I10 ; Primary insomnia F51.01 and Stress incontinence, female N39.3 [facility] [place] [address] 0[address] -[address]87 Aug, Sore throat J02.9 [facility] [id number] [place] [address] [id number] Apr, Insect bite W57.XXXA [address] [address]72- 2574 Nov, Encounter for immunization Z23 [place] [address] 65223- 7823 09 Oct, 2014 Hypertension 401.9 and Insomnia 780.52 [place] [address] [address] Sep, [facility] [address] [address] 7[address] Sep, [facility] [address] [address] 7441 Sep, [facility] [address] [address]- 7[address] Sep, [facility] [address] [address] 1748 Aug, [facility] [address] [place] [address] 42997- 9420 Aug, [facility] [address] [address] Aug, [facility] [address] [address] 38[address] June, Chest pain 786.50 ; Nicotine dependence 305.1 and Hypertension, essential, benign 401.1 [facility] [address] [address]- 8697 Nov, [facility] [address] [address]- 1[address] Nov, IMMUNIZATIONS No Known Immunizations SOCIAL HISTORY Never Assessed REASON FOR VISIT Requests return call PLAN OF CARE VITAL SIGNS MEDICATIONS Unknown [...]
--- OUTSIDE RECORDS SUMMARY | 2017-11-20 11:49 | XMS REPORT ---
Author Author MARY PETTY Organization [facility] Address [address] [place] [address] Care Team Providers Care Store Merchandiser Name Role Phone MARY PETTY Unavailable PROBLEMS Type Condition ICD9-CM Code OEN96-NQ Code Onset Dates Condition Status SNOMED Code Problem Essential hypertension I10 Active 58840134 Problem Anxiety F41.9 Active 23120465 Problem Panic attacks F41.0 Active 587489747 Problem Primary insomnia F51.01 Active 5341325 Problem Stress incontinence, female N39.3 Active 81616298 Problem Left foot pain M79.672 Active 313417888441692 Problem Seasonal allergic rhinitis due to pollen J30.1 Active 17011907 ALLERGIES No Information ENCOUNTERS Encounter Location Date Diagnosis [place] [id number] [address] 04 Oct, 2017 [facility] [address] [address]- [address]1 Sep, [facility] [address] 26676- 1478 Sep, Chronic diarrhea K52.9 [facility] [address] 61065- 2049 Sep, [facility] [address] [id number] Sep, Dental caries K02.9 and Dental examination Z01.20 [facility] [address] 17137- 4278 07 Sep, 2017 Encounter for screening for dental disorder Z13.84 [facility] [address] [address]- 4211 Sep, Dental caries K02.9 ; Anxiety F41.9 ; Acute diarrhea R19.7 and Low blood pressure reading R03.1 [place] [address] [place] [address] [id number] [place] [address] 28191- 6507 Sep, [place] [address] 87183- 4686 Aug, Panic attacks F41.0 [place] [address] 39075- 2355 Aug, Essential hypertension I10 [place] [address] 02630- 4293 Aug, Essential hypertension I10 ; Stress incontinence, female N39.3 and Seasonal allergic rhinitis due to pollen J30.1 [place] [address] 67321- 4836 Jul, Essential hypertension I10 [place] [address] 01548- 2703 May, Medication refill Z76.0 and Left foot pain M79.672 [place] [address] 30292- 3625 May, Essential hypertension I10 [place] [address] [place] [id number] [place] [address] 52475- 6246 Nov, Left ankle effusion M25.472 [place] [address] 59114- 4007 Nov, Essential hypertension I10 ; Primary insomnia F51.01 and Left ankle effusion M25.472 [place] [address] [place] [id number] [place] [address] 42050- 9136 15 Oct, 2016 Essential hypertension I10 [place] [address] 95464- 8552 Apr, [place] [address] [place] [id number] [place] [address] 89022- 5828 Apr, Essential hypertension I10 ; Primary insomnia F51.01 ; Stress incontinence, female N39.[address] [facility] [address] [place] [id number] [place] [address] 86142- 7247 Apr, Essential hypertension I10 [place] [address] 08159- 4877 Mar, Essential hypertension I10 [facility] [address] [address] -[address]32 Dec, Fever, unspecified fever cause R50.9 and Left otitis media , unspecified chronicity, unspecified otitis media type H66.92 [place] [address] [id number] Nov, Pharyngitis, unspecified etiology J02.9 ; Seasonal allergic rhinitis due to pollen J30.1 ; Cough R05 and Smoker unmotivated to quit F17.210 [place] [address] [id number] Nov, Encounter for immunization Z23 [place] [address] 34072- 0116 Aug, Essential hypertension I10 ; Primary insomnia F51.01 and Stress incontinence, female N39.3 [facility] [address] 91947 -0052 Aug, Sore throat J02.9 [place] [address] [place] [address] [id number] [place] [address] [id number] Apr, Insect bite W57.XXXA [place] [address] 60169- 1894 Nov, Encounter for immunization Z23 [place] [address] 48674- 0995 Oct, Hypertension 401.9 and Insomnia 780.52 [place] [address] 10109- 7091 Sep, [place] [address], [place] [address] Sep, [facility] [address] [address] Sep, [facility] [address], [place] [address] Sep, [facility] [id number] [place] [address] 19075- 6834 Aug, [facility] [address] [place] [address] 76148- 5762 Aug, [facility] [address] [place] [id number] [place] [address] 01393- 5157 Aug, [facility] [id number] [place] [address] 88743- 1960 June, Chest pain 786.50 ; Nicotine dependence 305.1 and Hypertension, essential, benign 401.1 [facility] [address], [place] [address] 95[address] Nov, [facility] [address], [place] [address]- 2983 Nov, IMMUNIZATIONS No Known Immunizations SOCIAL HISTORY Never Assessed REASON FOR VISIT lab order PLAN OF CARE VITAL SIGNS MEDICATIONS Medication [...]
--- OUTSIDE RECORDS SUMMARY | 2017-11-20 11:49 | XMS REPORT ---
Author Author MARY PETTY Organization [facility] Address [address] [place] [address] Care Team Providers Care Caseworker Intake Name Role Phone MARY PETTY Unavailable PROBLEMS Type Condition ICD9-CM Code MCN23-KR Code Onset Dates Condition Status SNOMED Code Problem Essential hypertension I10 Active 81543054 Problem Anxiety F41.9 Active 46854580 Problem Panic attacks F41.0 Active 708206950 Problem Primary insomnia F51.01 Active 0142612 Problem Stress incontinence, female N39.3 Active 83549463 Problem Left foot pain M79.672 Active 376678266460675 Problem Seasonal allergic rhinitis due to pollen J30.1 Active 98871691 ALLERGIES No Known Allergies ENCOUNTERS Encounter Location Date Diagnosis [place] [address] 09057- 0664 04 Oct, 2017 [facility] [address] 59475- 0783 Sep, [facility] [address] 85072- 1442 28 Sep, 2017 Chronic diarrhea K52.9 [facility] [address] 22678- 0573 Sep, [facility] [address] [id number] Sep, Dental caries K02.9 and Dental examination Z01.20 [place] [address] 82488- 2857 07 Sep, 2017 Encounter for screening for dental disorder Z13.84 [facility] [address] 29639- 5363 Sep, Dental caries K02.9 ; Anxiety F41.9 ; Acute diarrhea R19.7 and Low blood pressure reading R03.1 [place] [address] [place] [id number] [place] [address] 36109- 1922 Sep, [place] [address] 05356- 1013 Aug, Panic attacks F41.0 [place] [address] 90474- 7358 Aug, Essential hypertension I10 [place] [address] 65631- 7628 Aug, Essential hypertension I10 ; Stress incontinence, female N39.3 and Seasonal allergic rhinitis due to pollen J30.1 [place] [address] 94391- 5296 Jul, Essential hypertension I10 [place] [address] 62598- 2554 May, Medication refill Z76.0 and Left foot pain M79.672 [place] [address] 93733- 1198 May, Essential hypertension I10 [place] [address] [place] [address] [id number] [place] [address] 77127- 2445 Nov, Left ankle effusion M25.472 [place] [address] 31173- 8900 Nov, Essential hypertension I10 ; Primary insomnia F51.01 and Left ankle effusion M25.472 [place] [address] [place] [address] [id number] [place] [address] 34153- 5165 15 Oct, 2016 Essential hypertension I10 [place] [address] 80844- 1058 Apr, [place] [address] [place] [address] [id number] [place] [address] 38752- 3908 Apr, Essential hypertension I10 ; Primary insomnia F51.01 ; Stress incontinence, female N39.3 and Postmenopausal Z78.0 [facility] [id number] [place] [address] 41813- 5197 Apr, Essential hypertension I10 [place] [address] 97379- 3884 Mar, Essential hypertension I10 [facility] [address] 57214 -0008 Dec, Fever, unspecified fever cause R50.9 and Left otitis media , unspecified chronicity, unspecified otitis media type H66.92 [place] [address] [id number] Nov, Pharyngitis, unspecified etiology J02.9 ; Seasonal allergic rhinitis due to pollen J30.1 ; Cough R05 and Smoker unmotivated to quit F17.210 [place] [address] [id number] Nov, Encounter for immunization Z23 [place] [address] 62929- 2837 Aug, Essential hypertension I10 ; Primary insomnia F51.01 and Stress incontinence, female N39.3 [facility] [address] 51327 -1815 Aug, Sore throat J02.9 [place] [address] [place] [id number] [place] [address] [id number] Apr, Insect bite W57.XXXA [place] [address] 48075- 9797 Nov, Encounter for immunization Z23 [place] [address] 08789- 9173 Oct, Hypertension 401.9 and Insomnia 780.52 [place] [address] 76496- 0939 Sep, [facility] [address] [place] [id number], [place] [address]- 5586 Sep, [facility] [address], [place] [address]- 6518 Sep, [facility] [address], [place] [address]- 2997 Sep, [facility] [address], [place] [address]- 8570 Aug, [facility] [address], [place] [address]- 0552 Aug, [facility] [address], [place] [address]- 5864 Aug, [facility] [address], [place] [address]- 1607 June, Chest pain 786.50 ; Nicotine dependence 305.1 and Hypertension, essential, benign 401.1 [facility] [id number], [place] [address]- 2325 Nov, [facility] [address], [place] [address]- 9895 Nov, IMMUNIZATIONS No Known Immunizations SOCIAL HISTORY Never Assessed REASON FOR VISIT ipt/blood pressure -Jonnie GEORGE PLAN OF CARE Activity Details Follow Up 1 Year Reason:hypertension VITAL SIGNS Height 64 in 2017-09-11 Weight 154.0 lbs 2017-09-11 Temperature 97.7 degrees Fahrenheit 2017-09-11 Heart Rate 56 bpm 2017-09-11 Respiratory Rate 20 2017-09-11 Oximetry on room air:95 % 2017-09-11 BMI 26.43 kg/m2 2017-09-11 Blood pressure systolic 130 mmHg 2017-09-11 Blood pressure diastolic 78 mmHg 2017-09-11 MEDICATIONS Medication Instructions Dosage Frequency Start Date End Date Duration Status Losartan Potassium 100 mg Orally Once a day 1 tablet 24h 60 Active Amlodipine Besylate 5 mg Orally Once a day-Must be seen for refils 1 tablet Active Metoprolol Tartrate 100 MG Orally Twice a day 1 tablet 12h Active Hydrochlorothiazide 25 MG Orally Once a day-Must be seen for refills 1 tablet Active RESULTS No Results PROCEDURES Procedure Date Ordered Result Body Site COMPLETE CBC W/AUTO DIFF WBC September 11, 2017 LIPID PANEL September 11, 2017 COMPREHEN METABOLIC PANEL September 11, 2017 VENIPUNCT, ROUTINE* September 11, 2017 INSTRUCTIONS MEDICATIONS ADMINISTERED No Known Medications [...]
--- OUTSIDE RECORDS SUMMARY | 2017-11-20 11:50 | XMS REPORT ---
Author Author DAVID Mota Organization [facility] Address [address] [address] Care Team Providers Care Blind Eyeletter Name Role Phone DAVID Mota Unavailable PROBLEMS Type Condition ICD9-CM Code OJL40-PL Code Onset Dates Condition Status SNOMED Code Problem Panic attacks F41.0 Active 549103279 Problem Left foot pain M79.672 Active 913325772728417 Problem Primary insomnia F51.01 Active 3121048 Problem Essential hypertension I10 Active 13854787 Problem Seasonal allergic rhinitis due to pollen J30.1 Active 65713017 Problem Stress incontinence, female N39.3 Active 12305863 ALLERGIES No Known Allergies ENCOUNTERS Encounter Location Date Diagnosis [place] [address] [place] [id number] [place] [address] 18493- 9760 Sep, [place] [address] 42526- 0880 Aug, Panic attacks F41.0 [place] [address] [place] [id number] [place] [address] 24192- 2565 Aug, Essential hypertension I10 [place] [address] [place] [id number] [place] [address] 76261- 9666 Aug, Essential hypertension I10 ; Stress incontinence, female N39.3 and Seasonal allergic rhinitis due to pollen J30.1 [place] [address] 74454- 7785 Jul, Essential hypertension I10 [place] [address] [place] [id number] [place] [address] 25456- 6017 May, Medication refill Z76.0 and Left foot pain M79.672 [place] [address] [place] [address] [place] [address] 39425- 6945 May, Essential hypertension I10 [place] [address] [place] [address] [place] [address] 09292- 4388 Nov, Left ankle effusion M25.472 [place] [address] [place] [address] [place] [address] 95960- 4062 Nov, Essential hypertension I10 ; Primary insomnia F51.01 and Left ankle effusion M25.472 [place] [address] [place] [address] [place] [address] 32963- 7783 15 Oct, 2016 Essential hypertension I10 [place] [address] 19803- 0199 15 Apr, 2016 [place] [address] [place] [address] [place] [address] 90387- 8027 Apr, Essential hypertension I10 ; Primary insomnia F51.01 ; Stress incontinence, female N39.3 and Postmenopausal Z78.0 [place] [address] [place] [address] [place] [address] 06556- 4914 Apr, Essential hypertension I10 [place] [address] [place] [id number] [place] [address] 05317- 0608 Mar, Essential hypertension I10 [facility] [address] [place] [id number] [place] [address] 91618 -1303 Dec, Fever, unspecified fever cause R50.9 and Left otitis media , unspecified chronicity, unspecified otitis media type H66.92 [facility] [address] [place] [address] [place] [address] [id number] Nov, Pharyngitis, unspecified etiology J02.9 ; Seasonal allergic rhinitis due to pollen J30.1 ; Cough R05 and Smoker unmotivated to quit F17.210 [facility] [address] [place] [address] [place] [address] [id number] 03 Dec, 2015 Encounter for immunization Z23 [place] [address] 08093- 7115 Aug, Essential hypertension I10 ; Primary insomnia F51.01 and Stress incontinence, female N39.3 [facility] [address] 37416 -6201 Aug, Sore throat J02.9 [facility] [address] [id number] Apr, Insect bite W57.XXXA [facility] [address] 91345- 9671 Nov, Encounter for immunization Z23 [facility] [address] 19772- 7390 Oct, Hypertension 401.9 and Insomnia 780.52 [facility] [address] 31126- 9075 Sep, [facility] [address] 10535- 2675 Sep, [facility] [address] 22515- 3246 Sep, [facility] [address] 81999- 0645 Sep, [facility] [address] 27621- 8590 Aug, [facility] [address] 64173- 1584 Aug, [facility] [address] 29378- 4807 Aug, [facility] [address] 73663- 8313 June, Chest pain 786.50 ; Nicotine dependence 305.1 and Hypertension, essential, benign 401.1 [facility] [address] 38887- 2026 Nov, [facility] [address] [facility] [id number] [place] [address]- 9839 Nov, IMMUNIZATIONS No Known Immunizations SOCIAL HISTORY Never Assessed REASON FOR VISIT foot pain--Lauro Pt explains the pain varies on location and the pain shoots up calf and can cause knee stiffness, and has been going on for the past two weeks, Needs refill on Amolipidine and Losarten PLAN OF CARE Activity Details Follow Up prn Reason: VITAL SIGNS Height 64 in 2017-06-19 Weight 155.6 lbs 2017-06-19 Temperature 98.1 degrees Fahrenheit 2017-06-19 Heart Rate 70 bpm 2017-06-19 Respiratory Rate 20 2017-06-19 BMI 26.71 kg/m2 2017-06-19 Blood pressure systolic 138 mmHg 2017-06-19 Blood pressure diastolic 74 mmHg 2017-06-19 MEDICATIONS Medication Instructions Dosage Frequency Start Date End Date Duration Status Metoprolol Tartrate 100 MG Orally Twice a day 1 tablet 12h Active Losartan Potassium 100 mg Orally Once a day 1 tablet 24h 30 days Active Amlodipine Besylate 5 mg Orally Once a day 1 tablet 24h 30 days Active Hydrochlorothiazide 25 MG Orally Once a day 1 tablet 24h Active RESULTS No Results PROCEDURES No Known [...]
--- OUTSIDE RECORDS SUMMARY | 2017-11-20 11:50 | XMS REPORT ---
Author Author CECILIA IVEY [facility] Address [address] [place] [address] Care Team Providers Care Clammer Name Role Phone MALENAJose ECCILIA Unavailable PROBLEMS Type Condition ICD9-CM Code [id number] Code Onset Dates Condition Status SNOMED Code Problem Panic attacks F41.0 Active 433279957 Problem Left foot pain M79.672 Active 772674025980881 Problem Primary insomnia F51.01 Active 8228389 Problem Essential hypertension I10 Active 49813125 Problem Seasonal allergic rhinitis due to pollen J30.1 Active 43034008 Problem Stress incontinence, female N39.3 Active 65826656 ALLERGIES No Information ENCOUNTERS Encounter Location Date Diagnosis [place] [id number] [place] [address] 91220- 9237 Sep, [place] [id number] [place] [address] 53398- 6766 Aug, Panic attacks F41.0 [place] [address] 20660- 4142 Aug, Essential hypertension I10 [place] [id number] [place] [address] 06136- 9339 Aug, Essential hypertension I10 ; Stress incontinence, female N39.3 and Seasonal allergic rhinitis due to pollen J30.1 [place] [id number] [place] [address] 38708- 0290 Jul, Essential hypertension I10 [place] [address] 49484- 9766 May, Medication refill Z76.0 and Left foot pain M79.672 [place] [address] 71998- 8277 May, Essential hypertension I10 [facility] [id number] [place] [address] 47545- 7701 Nov, Left ankle effusion M25.472 [facility] [id number] [place] [address] 16597- 9836 11 Nov, 2016 Essential hypertension I10 ; Primary insomnia F51.01 and Left ankle effusion M25.472 [facility] [id number] [place] [address] 95380- 8615 15 Oct, 2016 Essential hypertension I10 [place] [address] 78420- 0224 15 Apr, 2016 [place] [id number] [place] [address] 24039- 9733 Apr, Essential hypertension I10 ; Primary insomnia F51.01 ; Stress incontinence, female N39.3 and Postmenopausal Z78.0 [facility] [id number] [place] [address] 32869- 7446 Apr, Essential hypertension I10 [facility] [id number] [place] [address] 17522- 3875 Mar, Essential hypertension I10 [facility] [id number] [place] [address] 31709 -3202 Dec, Fever, unspecified fever cause R50.9 and Left otitis media , unspecified chronicity, unspecified otitis media type H66.92 [facility] [place] [id number] [place] [address] [phone] Nov, Pharyngitis, unspecified etiology J02.9 ; Seasonal allergic rhinitis due to pollen J30.1 ; Cough R05 and Smoker unmotivated to quit F17.210 [facility] [place] [id number] [place] [address] [phone] Nov, Encounter for immunization Z23 [facility] [address] 48781- 4968 Aug, Essential hypertension I10 ; Primary insomnia F51.01 and Stress incontinence, female N39.3 [facility] [id number] [place] [address] [phone] -1990 Aug, Sore throat J02.9 [facility] [id number] [place] [address] [id number] 07 May, 2015 Insect bite W57.XXXA [facility] [address] 83650- 3777 Nov, Encounter for immunization Z23 [facility] [address] 36534- 3950 Oct, Hypertension 401.9 and Insomnia 780.52 [facility] [id number] [place] [address] 73174- 5866 Sep, [facility] [address] 65477- 3012 Sep, [facility] [address] 43426- 2288 Sep, [facility] [address] 65650- 1015 Sep, [facility] [id number] [place] [address] 20628- 5961 Aug, [facility] [id number] [place] [address] 12541- 0368 Aug, [facility] [id number] [place] [address] 30190- 6648 Aug, [facility] [address] 81649- 4209 June, Chest pain 786.50 ; Nicotine dependence 305.1 and Hypertension, essential, benign 401.1 [facility] [id number] [place] [address] 50898- 0966 Nov, [facility] [id number] [address] Nov, IMMUNIZATIONS No Known Immunizations SOCIAL HISTORY Never Assessed REASON FOR VISIT Medication refill request PLAN OF CARE VITAL SIGNS MEDICATIONS Medication Instructions Dosage Frequency Start Date End Date Duration Status Losartan Potassium 100 mg Orally Once a day 1 tablet 24h 30 days Active Amlodipine Besylate 5 mg Orally Once a day 1 tablet 24h 30 days Active RESULTS No Results PROCEDURES No [...]
--- OUTSIDE RECORDS SUMMARY | 2017-11-20 11:50 | XMS REPORT ---
Author Author CECILIA IVEY Organization [facility] Address [address] [place] [address] Care Team Providers Care Weld Inspector Name Role Phone CECILIA IVEY Unavailable PROBLEMS Type Condition ICD9-CM Code [id number] Code Onset Dates Condition Status SNOMED Code Problem Essential hypertension I10 Active 21153073 Problem Anxiety F41.9 Active 92328600 Problem Panic attacks F41.0 Active 615741729 Problem Primary insomnia F51.01 Active 0239165 Problem Stress incontinence, female N39.3 Active 39446035 Problem Left foot pain M79.672 Active 999303464524123 Problem Seasonal allergic rhinitis due to pollen J30.1 Active 12481582 ALLERGIES No Information ENCOUNTERS Encounter Location Date Diagnosis [place] [id number] [place] [address] 19827- 2648 Sep, [place] [address] 15751- 6604 Sep, Chronic diarrhea K52.9 [place] [id number] [place] [address] 81616- 9188 Sep, [facility] [address] [id number] Sep, Dental caries K02.9 and Dental examination Z01.20 [place] [address] 77556- 6776 07 Sep, 2017 Encounter for screening for dental disorder Z13.84 [place] [id number] [place] [address] 36476- 1843 Sep, Dental caries K02.9 ; Anxiety F41.9 ; Acute diarrhea R19.7 and Low blood pressure reading R03.1 [place] [id number] [place] [address] 68811- 9371 Sep, [place] [id number] [place] [address] 32246- 4627 Aug, Panic attacks F41.0 [place] [id number] [place] [address] 69826- 1572 Aug, Essential hypertension I10 [place] [address] 58549- 9909 Aug, Essential hypertension I10 ; Stress incontinence, female N39.3 and Seasonal allergic rhinitis due to pollen J30.1 [place] [address] 67831- 3445 Jul, Essential hypertension I10 [place] [id number] [place] [address] 76580- 0517 May, Medication refill Z76.0 and Left foot pain M79.672 [place] [id number] [place] [address] 90277- 8260 May, Essential hypertension I10 [place] [id number] [place] [address] 06874- 1208 Nov, Left ankle effusion M25.472 [place] [id number] [place] [address] 54570- 9196 Nov, Essential hypertension I10 ; Primary insomnia F51.01 and Left ankle effusion M25.472 [place] [id number] [place] [address] 60347- 4044 15 Oct, 2016 Essential hypertension I10 [place] [id number] [place] [address] 04764- 6530 Apr, [place] [id number] [place] [address] 73590- 3224 Apr, Essential hypertension I10 ; Primary insomnia F51.01 ; Stress incontinence, female N39.3 and Postmenopausal Z78.0 [place] [id number] [place] [address] [phone]- 7105 14 Apr, 2016 Essential hypertension I10 [place] [address] 88106- 5872 Mar, Essential hypertension I10 [facility] [address] 906773 -7314 Dec, Fever, unspecified fever cause R50.9 and Left otitis media , unspecified chronicity, unspecified otitis media type H66.92 [facility] [address] [id number] Nov, Pharyngitis, unspecified etiology J02.9 ; Seasonal allergic rhinitis due to pollen J30.1 ; Cough R05 and Smoker unmotivated to quit F17.210 [place] [address] [id number] Nov, Encounter for immunization Z23 [address] 73536- 2757 Aug, Essential hypertension I10 ; Primary insomnia F51.01 and Stress incontinence, female N39.3 [facility] [address] [place] [address] 65413 -4555 Aug, Sore throat J02.9 [place] [address] [id number] Apr, Insect bite W57.XXXA [address] 91235- 4392 Nov, Encounter for immunization Z23 [address] 08610- 0714 Oct, Hypertension 401.9 and Insomnia [address] 12684- 4354 Sep, [place] [address] 55098- 1177 Sep, [facility] [address] [facility] [id number] [address] Sep, [facility] [id number] [address]- 2546 Sep, [facility] [id number] [address]- 5976 Aug, [facility] [address] [address]- 2546 Aug, [facility] [id number] [address]- 9006 Aug, [facility] [address] [address]- 2686 June, Chest pain 786.50 ; Nicotine dependence 305.1 and Hypertension, essential, benign 401.1 [facility] [address] [address]- 3116 Nov, [facility] [id number] [address]- 7166 Nov, IMMUNIZATIONS No Known Immunizations SOCIAL HISTORY Never Assessed REASON FOR VISIT Refill request PLAN OF CARE VITAL SIGNS MEDICATIONS Medication Instructions Dosage Frequency Start Date End Date Duration Status Amlodipine Besylate 5 mg Orally Once a day-Must be seen for refils 1 tablet Active Hydrochlorothiazide 25 MG Orally Once a day-Must be seen for refills 1 tablet Active RESULTS No Results PROCEDURES No Known [...]
--- OUTSIDE RECORDS SUMMARY | 2017-11-20 11:52 | XMS REPORT | Continuity of Care Document ---
Author Author [facility] Address Unknown Phone Unavailable Allergies Active Description Code Type Severity Reaction Onset Reported/Identified Relationship to Patient Clinical Status Yes No Known Drug Allergies [id number] Drug Allergy Unknown N/A 07/21/2009 Medications There [...] NAUSEA WITH VOMITING, UNSPECIFIED 03/24/2017 ANNIE LIVINGSTON, EJRMAN Horton Ot Z87.59 PERSONAL HISTORY OF COMP OF PREG, CHLDBR 03/24/2017 ANNIE LIVINGSTON, JERMAN Horton Ot Z90.710 ACQUIRED ABSENCE OF BOTH CERVIX AND UTER 03/24/2017 ANNIE LIVINGSTON, JERMAN Horton Ot Z90.89 ACQUIRED ABSENCE OF OTHER ORGANS 09/18/2017 RAE TIMMONS MD Ot F17.210 NICOTINE DEPENDENCE, CIGARETTES, UNCOMPL 09/18/2017 RAE TIMMONS MD Ot F32.9 MAJOR DEPRESSIVE DISORDER, SINGLE EPISOD 09/18/2017 RAE TIMMONS MD Ot F41.0 PANIC DISORDER [EPISODIC PAROXYSMAL ANXI 09/18/2017 RAE TIMMONS MD Ot I10 ESSENTIAL (PRIMARY) HYPERTENSION 09/18/2017 RAE TIMMONS MD Ot K02.9 DENTAL CARIES, UNSPECIFIED 09/18/2017 RAE TIMMONS MD Ot K21.9 GASTRO-ESOPHAGEAL REFLUX DISEASE WITHOUT 09/18/2017 RAE TIMMONS MD Ot N39.0 URINARY TRACT INFECTION, SITE NOT SPECIF 09/18/2017 RAE TIMMONS MD Ot R19.7 DIARRHEA, UNSPECIFIED 09/18/2017 RAE TIMMONS MD Ot Z87.59 PERSONAL HISTORY OF COMP OF PREG, CHLDBR 09/18/2017 RAE TIMMONS MD Ot Z90.710 ACQUIRED ABSENCE OF BOTH CERVIX AND UTER 09/18/2017 RAE TIMMONS MD Ot Z90.89 ACQUIRED ABSENCE OF OTHER ORGANS 09/18/2017 RAE TIMMONS MD Ot Z91.5 PERSONAL HISTORY OF SELF-HARM 09/21/2017 RAE TIMMONS MD Ot F17.210 NICOTINE DEPENDENCE, CIGARETTES, UNCOMPL 09/21/2017 RAE TIMMONS MD Ot F32.9 MAJOR DEPRESSIVE DISORDER, SINGLE EPISOD 09/21/2017 RAE TIMMONS MD Ot F41.0 PANIC DISORDER [EPISODIC PAROXYSMAL ANXI 09/21/2017 RAE TIMMONS MD Ot I10 ESSENTIAL (PRIMARY) HYPERTENSION 09/21/2017 RAE TIMMONS MD Ot K02.9 DENTAL CARIES, UNSPECIFIED 09/21/2017 RAE TIMMONS MD Ot K21.9 GASTRO-ESOPHAGEAL REFLUX DISEASE WITHOUT 09/21/2017 RAE TIMMONS MD Ot N39.0 URINARY TRACT INFECTION, SITE NOT SPECIF 09/21/2017 RAE TIMMONS MD Ot R19.7 DIARRHEA, UNSPECIFIED 09/21/2017 RAE TIMMONS MD Ot Z87.59 PERSONAL HISTORY OF COMP OF PREG, CHLDBR 09/21/2017 RAE TIMMONS MD Ot Z90.710 ACQUIRED ABSENCE OF BOTH CERVIX AND UTER 09/21/2017 RAE TIMMONS MD Ot Z90.89 ACQUIRED ABSENCE OF OTHER ORGANS 09/21/2017 RAE TIMMONS MD Ot Z91.5 PERSONAL HISTORY OF SELF-HARM 09/25/2017 RAE TIMMONS MD Ot F17.210 NICOTINE DEPENDENCE, CIGARETTES, UNCOMPL 09/25/2017 RAE TIMMONS MD Ot F32.9 MAJOR DEPRESSIVE DISORDER, SINGLE EPISOD 09/25/2017 RAE TIMMONS MD Ot F41.0 PANIC DISORDER [EPISODIC PAROXYSMAL ANXI 09/25/2017 RAE TIMMONS MD Ot I10 ESSENTIAL (PRIMARY) HYPERTENSION 09/25/2017 RAE TIMMONS MD, Ot K02.9 DENTAL CARIES, UNSPECIFIED 09/25/2017 RAE TIMMONS MD Ot K21.9 GASTRO-ESOPHAGEAL REFLUX DISEASE WITHOUT 09/25/2017 RAE TIMMONS MD Ot N39.0 URINARY TRACT INFECTION, SITE NOT SPECIF 09/25/2017 RAE TIMMONS MD Ot R19.7 DIARRHEA, UNSPECIFIED 09/25/2017 RAE TIMMONS MD Ot Z87.59 PERSONAL HISTORY OF COMP OF PREG, CHLDBR 09/25/2017 RAE TIMMONS MD Ot Z90.710 ACQUIRED ABSENCE OF BOTH CERVIX AND UTER 09/25/2017 RAE TIMMONS MD Ot Z90.89 ACQUIRED ABSENCE OF OTHER ORGANS 09/25/2017 RAE TIMMONS MD Ot Z91.5 PERSONAL HISTORY OF SELF-HARM Procedures Code Description [place] [address] MAMMOGRAM, SCREENING 06/24/2014 CARDIOLOG MOHAN JAIME 06/24/2014 [...] 9.8 fL 7.5-12.5 ABSOLUTE NEUTROPHILS 4427 cells/uL 5410-7092 ABSOLUTE LYMPHOCYTES 2881 cells/uL 850-3900 ABSOLUTE MONOCYTES 689 cells/uL 200-950 ABSOLUTE EOSINOPHILS 344 cells/uL 15-500 ABSOLUTE BASOPHILS 59 cells/uL 0-200 NEUTROPHILS 52.7 % NRG LYMPHOCYTES 34.3 % NRG MONOCYTES 8.2 % NRG EOSINOPHILS 4.1 % NRG BASOPHILS 0.7 % NRG Complete urinalysis with reflex to culture - 09/18/17 07:22 Urine color determination YELLOW NRG Urine clarity determination VERY CLOUDY NRG Urine pH measurement by test strip 5 5-9 Specific gravity of urine by test strip 1.020 1.016- 1.022 Urine protein assay by test strip, semi-quantitative 2+ NEGATIVE Urine glucose detection by automated test strip NEGATIVE NEGATIVE Erythrocytes detection in urine sediment by light microscopy 2+ NEGATIVE Urine ketones detection by automated test strip NEGATIVE NEGATIVE Urine nitrite detection by test strip NEGATIVE NEGATIVE Urine total bilirubin detection by test strip NEGATIVE NEGATIVE Urine urobilinogen measurement by automated test strip (mass/volume) NORMAL NORMAL Urine leukocyte esterase detection by dipstick 1+ NEGATIVE Automated urine sediment erythrocyte count by microscopy (number/high power field) RARE NRG Automated urine sediment leukocyte count by microscopy (number/high power field ) [HPF] NRG Bacteria detection in urine sediment by light microscopy LARGE NRG Squamous epithelial cells detection in urine sediment by light microscopy 25-50 NRG Crystals detection in urine sediment by light microscopy NONE NRG Casts detection in urine sediment by light microscopy NONE NRG Mucus detection in urine sediment by light microscopy NEGATIVE NRG Complete urinalysis with reflex to culture YES NRG Urine drug screening test - 09/18/17 07:22 Urine phencyclidine detection by screening method NEGATIVE NEGATIVE Urine benzodiazepines detection by screening method NEGATIVE NEGATIVE Urine cocaine detection NEGATIVE NEGATIVE Urine amphetamines detection by screening method NEGATIVE NEGATIVE Urine methamphetamine detection by screening method NEGATIVE NEGATIVE Urine cannabinoids detection by screening method NEGATIVE NEGATIVE Urine opiates detection by screening method NEGATIVE NEGATIVE Urine barbiturates detection NEGATIVE NEGATIVE Screening urine tricyclic antidepressants detection NEGATIVE NEGATIVE Urine methadone detection by screening method NEGATIVE NEGATIVE Urine oxycodone detection NEGATIVE NEGATIVE Urine propoxyphene detection NEGATIVE NEGATIVE Bacterial urine culture - 09/18/17 07:22 Bacterial urine culture SEE COMMEN NRG COLONY COUNT . NRG Complete blood count (CBC) with automated white blood cell (WBC) differential - 09/18/17 07:45 Blood leukocytes automated count (number/volume) 12.0 10*3/uL 4.3-11.0 Blood erythrocytes automated count (number/volume) 5.03 10*6/uL 4.35-5.85 Venous blood hemoglobin measurement (mass/volume) 15.9 g/dL 11.5-16.0 Blood hematocrit (volume fraction) 44 % 35-52 Automated erythrocyte mean corpuscular volume 87 [foz_us] 80-99 Automated erythrocyte mean corpuscular hemoglobin (mass per erythrocyte) 32 pg 25-34 Automated erythrocyte mean corpuscular hemoglobin concentration measurement ( mass/volume) 36 g/dL 32-36 Automated erythrocyte distribution width ratio 14.1 % 10.0-14.5 Automated blood platelet count (count/volume) 289 10*3/uL 130-400 Automated blood platelet mean volume measurement 9.7 [foz_us] 7.4-10.4 Automated blood neutrophils/100 leukocytes 80 % 42-75 Automated blood lymphocytes/100 leukocytes 13 % 12-44 Blood monocytes/100 leukocytes 6 % 0-12 Automated blood eosinophils/100 leukocytes 1 % 0-10 Automated blood basophils/100 leukocytes 0 % 0-10 Blood neutrophils automated count (number/volume) 9.5 10*3 1.8-7.8 Blood lymphocytes automated count (number/volume) 1.6 10*3 1.0-4.0 Blood monocytes automated count (number/volume) 0.7 10*3 0.0-1.0 Automated eosinophil count 0.1 10*3/uL 0.0-0.3 Automated blood basophil count (count/volume) 0.0 10*3/uL 0.0-0.1 Comprehensive metabolic panel - 09/18/17 07:45 Serum or plasma sodium measurement (moles/volume) 138 mmol/L 135-145 Serum or plasma potassium measurement (moles/volume) 3.7 mmol/L 3.6-5.0 Serum or plasma chloride measurement (moles/volume) 104 mmol/L 98-107 Carbon dioxide 23 mmol/L 21-32 Serum or plasma anion gap determination (moles/volume) 11 mmol/L 5-14 Serum or plasma urea nitrogen measurement (mass/volume) 11 mg/dL 7-18 Serum or plasma creatinine measurement (mass/volume) 0.73 mg/dL 0.60-1.30 Serum or plasma urea nitrogen/creatinine mass ratio 15 NRG Serum or plasma creatinine measurement with calculation of estimated glomerular filtration rate > NRG Serum or plasma glucose measurement (mass/volume) 110 mg/dL 70-105 Serum or plasma calcium measurement (mass/volume) 10.1 mg/dL 8.5-10.1 Serum or plasma total bilirubin measurement (mass/volume) 0.8 mg/dL 0.1-1.0 Serum or plasma alkaline phosphatase measurement (enzymatic activity/volume) 106 U/L 40-136 Serum or plasma aspartate aminotransferase measurement (enzymatic activity/ volume) 29 U/L 5-34 Serum or plasma alanine aminotransferase measurement (enzymatic activity/volume ) 28 U/L 0-55 Serum or plasma protein measurement (mass/volume) 7.5 g/dL 6.4-8.2 Serum or plasma albumin measurement (mass/volume) 4.5 g/dL 3.2-4.5 Serum or plasma thyrotropin measurement by detection limit <=0.05 miu/l (units/ volume) - 09/18/17 07:45 Serum or plasma thyrotropin measurement by detection limit <=0.05 miu/l (units/ volume) 0.82 u[iU]/mL 0.35-4.94 Serum or plasma ethanol measurement (mass/volume) - 09/18/17 07:45 Serum or plasma ethanol measurement (mass/volume) < mg/dL <10 STOOL (WBC) - 10/27/17 10:16 FECAL LEUKOCYTE STAIN SEE NOTE NRG STOOL (C-DIFF) - 10/27/17 10:16 CLOSTRIDIUM DIFFICILE TOXIN/GDH W/REFL TO PCR SEE NOTE NRG STOOL (H PYLORI) AG, EIA - 10/27/17 10:16 HELICOBACTER PYLORI AG, EIA, STOOL SEE NOTE NRG Encounters ACCT No. Visit Date/Time Discharge Status Pt. Type Provider Facility Loc./Unit Complaint [id number] 06/24/2014 12:45:00 06/24/2014 23:59:59 CLS Outpatient CECILIA IVEY APRN [id number] 12/27/2012 15:13:00 12/27/2012 23:59:59 CLS Outpatient NOEL LACEY APRN [id number] 10/06/2017 13:30:00 10/06/2017 23:59:59 CLS Outpatient MARY PETTY [facility] [id number] 10/27/2017 09:20:00 Document Registration [id number] 09/11/2017 15:20:00 Document Registration [id number] 09/18/2017 06:25:00 09/18/2017 09:27:00 DIS Outpatient IAIN LIVINGSTON, RAE Mathias [facility] ER ABD PAIN,DIARRHEA [id number] 03/21/2017 06:25:00 03/21/2017 09:55:00 DIS Outpatient ANNIE LIVINGSTON, JERMAN Horton [facility] ER VOMITING,DIARRHEA [id number] 09/26/2014 09:29:00 09/26/2014 23:59:59 CLS Outpatient YENI LIVINGSTON, MOHAN Obrien [facility] CARD CP DYSPNEA HTN [id number] 03/24/2013 08:49:00 03/24/2013 23:59:59 CLS Outpatient NIKI ROBERTS DO S [facility] CARD PALPITATIONS [id number] 08/05/2012 06:59:00 08/05/2012 10:25:00 DIS Outpatient ANTONIO CORDERO MD [facility] REFLUX,ESOPHAGITIS [id number] 08/04/2012 07:18:00 08/04/2012 23:59:59 CLS Outpatient ANTONIO CORDERO MD [facility] PREOP DYSPHAGIA [id number] 05/07/2016 08:46:00 Document Registration
[2017-11-20] MEDS ORDERED: ONDANSETRON 4 MG/2 ML (SDV) Z0FRAN IVP ONE (12:45)
[2017-11-20] MEDS ORDERED: NS IV 1000 ML 1,000 ML IV SCH (12:45)
[2017-11-20 13:08] LABS: BASOPHILS # (AUTO) 0.1 10^3/uL (0.0-0.1); BASOPHILS % (AUTO) 0 % (0-10); EOSINOPHILS % (AUTO) 0 % (0-10); HEMATOCRIT 44 % (35-52); LYMPHOCYTES # (AUTO) 1.6 X 10^3 (1.0-4.0); LYMPHOCYTES % (AUTO) 10 % (12-44); MEAN CORPUSCULAR HEMOGLOBIN 31 PG (25-34); MEAN CORPUSCULAR HGB CONC 34 G/DL (32-36); MEAN CORPUSCULAR VOLUME 91 FL (80-99); MEAN PLATELET VOLUME 10.1 FL (7.4-10.4); MONOCYTES # (AUTO) 1.5 X 10^3 (0.0-1.0); MONOCYTES % (AUTO) 9 % (0-12); NEUTROPHILS # (AUTO) 12.3 X 10^3 (1.8-7.8); NEUTROPHILS % (AUTO) 80 % (42-75); PLATELET COUNT 442 10^3/uL (130-400); RED BLOOD COUNT 4.79 10^6/uL (4.35-5.85); RED CELL DISTRIBUTION WIDTH 14.1 % (10.0-14.5); WHITE BLOOD COUNT 15.4 10^3/uL (4.3-11.0)
[2017-11-20 13:27] LABS: CLARITY,URINE CLEAR; COLOR,URINE AMBER; GLUCOSE, URINE (UA) NEGATIVE (NEGATIVE); KETONES,URINE 1+ (NEGATIVE); LEUKOCYTE ESTERASE ,URINE 2+ (NEGATIVE); NITRITE,URINE POSITIVE (NEGATIVE); PH,URINE 5 (5-9); PROTEIN,URINE 2+ (NEGATIVE); UROBILINOGEN,URINE 4 MG/DL (NORMAL)
[2017-11-20 13:28] LABS: BUN/CREATININE RATIO 16; CARBON DIOXIDE 20 MMOL/L (21-32); CHLORIDE 101 MMOL/L (98-107); CREATININE SERUM 0.69 MG/DL (0.60-1.30); POTASSIUM 3.5 MMOL/L (3.6-5.0); SODIUM 133 MMOL/L (135-145)
[2017-11-20 13:29] LABS: ALANINE AMINOTRANSFERASE 47 U/L (0-55); ALKALINE PHOSPHATASE 194 U/L (40-136); AMYLASE 50 U/L (25-125); BILIRUBIN,TOTAL 1.5 MG/DL (0.1-1.0); CALCIUM 10.4 MG/DL (8.5-10.1); GFR ESTIMATED > 60; GLUCOSE 106 MG/DL (70-105); LIPASE 58 U/L (8-78); TOTAL PROTEIN 7.6 GM/DL (6.4-8.2)
[2017-11-20 13:33] LABS: BAND NEUTROPHILS 1 %; BASOPHILS % (MANUAL) 0 %; EOSINOPHILS % (MANUAL) 0 %; LYMPHOCYTES % (MANUAL) 14 %; MONOCYTES % (MANUAL) 4 %; NEUTROPHILS % (MANUAL) 81 %; RBC MORPH NORMAL
[2017-11-20 13:41] LABS: BACTERIA,URINE MODERATE /HPF; BILIRUBIN,URINE 2+ (NEGATIVE); SQUAMOUS EPITHELIAL CELL,UR 25-50 /HPF
[2017-11-20 13:42] LABS: AMORPHOUS SEDIMENT,UR FEW AMOR URATES /LPF
--- NOTE | 2017-11-20 13:57 | ED Abdominal Pain ---
General Chief Complaint: Abdominal/GI Problems Stated Complaint: FEVER;COUGH;DIARRHEA Source of Information: Patient Exam Limitations: No Limitations History of Present Illness Date Seen by Provider: Nov 20, 2017 Time Seen by Provider: 12:00 Initial Comments Patient is a 57-year-old female who presents to the emergency room with complaints of nausea, vomiting, diarrhea, fever for the past 3 days. She reports that she's had nausea and diarrhea since the beginning of July and has been evaluated by [facility] and has had numerous stool samples done with no answers. She reports that she has recently switched to Dr. Foster at [facility] for primary care and they're concerned with hepatitis due to elevated liver enzymes. She did have an appointment there yesterday and they did "a lot of labs" but has not had any results. She states that 3 days ago she did develop fever along with vomiting. Timing/Duration: 2-3 Days Severity/Quality: Moderate Location: Generalized Abdomen Radiation: Back Associated Symptoms: Back Pain, Fever/Chills, Nausea/Vomiting Allergies and Home Medications Allergies Coded Allergies: No Known Drug Allergies (Unverified , 07/21/09) Home Medications Acetaminophen 500 Mg Tablet, 500-1,000 MG PO Q6H PRN for PAIN-MILD OR TEMPATURE, (Reported) Amlodipine Besylate 5 Mg Tablet, 5 MG PO DAILY, (Reported) Ciprofloxacin HCl 500 Mg Tablet, 500 MG PO BID, (Reported) #20 FILLED 11-19-17 Clonazepam 0.5 Mg Tablet, 0.5 MG PO BID PRN for ANXIETY, (Reported) Hydrochlorothiazide 25 Mg Tablet, 25 MG PO DAILY, (Reported) Ibuprofen 200 Mg Tablet, 200 MG PO Q6H PRN for PAIN-MILD OR TEMPATURE, (Reported ) Losartan Potassium 100 Mg Tablet, 100 MG PO DAILY, (Reported) Metronidazole 500 Mg Tablet, 500 MG PO BID, (Reported) 10 DAY SUPPLY FILLED 11-19-17 Sertraline HCl 50 Mg Tablet, 25 MG PO DAILY, (Reported) TAKES 1/2 (50MG) TABLET Patient Home Medication List Home Medication List Reviewed: Yes Review of Systems Review of Systems Constitutional: see HPI, chills, fever Gastrointestinal: See HPI, Abdominal Pain, Nausea, Vomiting Musculoskeletal: see HPI, back pain All Other Systems Reviewed Negative Unless Noted: Yes Past Prcsamj-Wmzrcd-Xughsw Hx Past Med/Social Hx: Reviewed Nursing Past Med/Soc Hx Patient Social History Type Used: Cigarettes 2nd Hand Smoke Exposure: Yes Recent Hopitalizations: No Immunizations Up To Date Tetanus Booster (TDap): Unknown Seasonal Allergies Seasonal Allergies: No Past Medical History Surgeries: Yes (TIF) Abdominal, Adenoidectomy, Section, Gallbladder, Hysterectomy, Orthopedic, Tonsillectomy Respiratory: No Cardiac: Yes Hypertension Neurological: No Reproductive Disorders: No 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 oz. 72.440188dp; 27.29 BMI Method:Stated General Appearance: WD/WN, no apparent distress Respiratory: chest non-tender, lungs clear, normal breath sounds, no respiratory distress, no accessory muscle use Cardiovascular: normal peripheral pulses, regular rate, rhythm, no edema, no gallop, no JVD, no murmur Gastrointestinal: normal bowel sounds, soft, no organomegaly, no pulsatile mass , tenderness (suprapubic abdominal pain that radiates to her flanks and back) Back: normal inspection, no vertebral tenderness, CVA tenderness (R), CVA tenderness (L) Neurologic/Psychiatric: alert, normal mood/affect, oriented x 3 Skin: normal color, warm/dry Focused Exam Lactate Level 11/20/17 13:19: Lactic Acid Level 1.64 Lactic Acid Level Laboratory Tests Test 11/20/17 13:19 Lactic Acid Level 1.64 MMOL/L (0.50-2.00) Progress/Results/Core Measures Results/Orders Lab Results Laboratory Tests Test 11/20/17 12:45 11/20/17 13:00 11/20/17 13:19 Range/Units White Blood Count 15.4 H 4.3-11.0 10^3/uL Red Blood Count 4.79 4.35-5.85 10^6/uL Hemoglobin 15.0 11.5-16.0 G/DL Hematocrit 44 35-52 % Mean Corpuscular Volume 91 80-99 FL Mean Corpuscular Hemoglobin 31 25-34 PG Mean Corpuscular Hemoglobin Concent 34 32-36 G/DL Red Cell Distribution Width 14.1 10.0-14.5 % Platelet Count 442 H 130-400 10^3/uL Mean Platelet Volume 10.1 7.4-10.4 FL Neutrophils (%) (Auto) 80 H 42-75 % Lymphocytes (%) (Auto) 10 L 12-44 % Monocytes (%) (Auto) 9 0-12 % Eosinophils (%) (Auto) 0 0-10 % Basophils (%) (Auto) 0 0-10 % Neutrophils # (Auto) 12.3 H 1.8-7.8 X 10^3 Lymphocytes # (Auto) 1.6 1.0-4.0 X 10^3 Monocytes # (Auto) 1.5 H 0.0-1.0 X 10^3 Eosinophils # (Auto) 0.0 0.0-0.3 10^3/uL Basophils # (Auto) 0.1 0.0-0.1 10^3/uL Neutrophils % (Manual) 81 % Lymphocytes % (Manual) 14 % Monocytes % (Manual) 4 % Eosinophils % (Manual) 0 % Basophils % (Manual) 0 % Band Neutrophils 1 % Blood Morphology Comment NORMAL Sodium Level 133 L 135-145 MMOL/L Potassium Level 3.5 L 3.6-5.0 MMOL/L Chloride Level 101 98-107 MMOL/L Carbon Dioxide Level 20 L 21-32 MMOL/L Anion Gap 12 5-14 MMOL/L Blood Urea Nitrogen 11 7-18 MG/DL Creatinine 0.69 0.60-1.30 MG/DL Estimat Glomerular Filtration Rate > 60 BUN/Creatinine Ratio 16 Glucose Level 106 H 70-105 MG/DL Calcium Level 10.4 H 8.5-10.1 MG/DL Corrected Calcium 10.4 H 8.5-10.1 MG/DL Total Bilirubin 1.5 H 0.1-1.0 MG/DL Aspartate Amino Transf (AST/SGOT) 43 H 5-34 U/L Alanine Aminotransferase (ALT/SGPT) 47 0-55 U/L Alkaline Phosphatase 194 H 40-136 U/L Total Protein 7.6 6.4-8.2 GM/DL Albumin 4.0 3.2-4.5 GM/DL Amylase Level 50 25-125 U/L Lipase 58 8-78 U/L Urine Color BETHANY H Urine Clarity CLEAR Urine pH 5 5-9 Urine Specific [place] 1.015 L 1.016-1.022 Urine Protein 2+ H NEGATIVE Urine Glucose (UA) NEGATIVE NEGATIVE Urine Ketones 1+ H NEGATIVE Urine Nitrite POSITIVE H NEGATIVE Urine Bilirubin 2+ H NEGATIVE Urine Urobilinogen 4 H NORMAL MG/DL Urine Leukocyte Esterase 2+ H NEGATIVE Urine RBC (Auto) 4+ H NEGATIVE Urine RBC 2-5 H /HPF Urine WBC 5-10 H /HPF Urine Squamous Epithelial Cells 25-50 H /HPF Urine Crystals PRESENT H /LPF Urine Amorphous Sediment FEW CHAI URATES H /LPF Urine Bacteria MODERATE H /HPF Urine Casts NONE /LPF Urine Mucus SMALL H /LPF Urine Culture Indicated YES Lactic Acid Level 1.64 0.50-2.00 MMOL/L My Orders Orders - JEFF POOL Comprehensive Metabolic Panel (11/20/17 12:41) Lipase (11/20/17 12:41) Amylase (11/20/17 12:41) Ua Culture If Indicated (11/20/17 12:41) Saline Lock/Iv-Start (11/20/17 12:41) Cbc With Automated Diff (11/20/17 12:41) Ondansetron Injection (Zofran Injectio (11/20/17 12:45) Stool Culture (11/20/17 12:41) Parasite Scrn Stool Giard Cryp (11/20/17 12:41) Blood Culture (11/20/17 12:41) Lactic Acid Analyzer (11/20/17 12:41) Hepatitis Panel Acute (11/20/17 12:41) Ns Iv 1000 Ml (Sodium Chloride 0.9%) (11/20/17 12:45) Manual Differential (11/20/17 12:45) Urine Culture (11/20/17 13:00) Ceftriaxone For Iv Use (Rocephin For I (11/20/17 14:30) Medications Given in ED Current Medications Medications Dose Ordered Sig/Silvina Route Start Time Stop Time Status Last Admin Dose Admin Ondansetron HCl 8 mg ONCE ONCE IVP 11/20/17 12:45 11/20/17 12:47 DC 11/20/17 13:01 8 MG Vital Signs/I&O 11/20/17 12:45 Temp 101.3 Pulse 112 Resp 18 B/P (MAP) 96/76 (83) Pulse Ox 95 O2 Delivery Room Air 11/21/17 00:00 Intake Total 1000 ml Balance 1000 ml Progress Progress Note : Time: 14:00 Progress Note I have seen and evaluated the patient. I spoke to Dr. Bonilla in regards to plans for admission. She agrees to accept the patient. She recommends IV fluids at 150 an hour and the use of 1 g of Rocephin every 24 hours. I informed the patient plans for admission, she is in agreement. Departure Communication (Admissions) Time/Spoke to Admitting Phy: 14:00 Dr. Bonilla Impression Primary Impression: Urinary tract infection Disposition: ADMITTED INPATIENT Condition: Stable/Unchanged Admissions Decision to Admit Reason: Admit from ER (General) Decision to Admit/Date: Nov 20, 2017 Time/Decision to Admit Time: 14:00 Departure-Patient Inst. Referrals: [facility] (PCP/Family) Primary Care Physician JEFF POOL Nov 20, 2017 13:57
[2017-11-20] MEDS ORDERED: cefTRIAXone FOR IV USE 1,000 MG in NS (IVPB) 50 ML IV ONE (14:30)
[2017-11-20 15:00] VITALS: BP 100/57
[2017-11-20] MEDS ORDERED: CATHETER FLUSH 10 ML SYR IV PRN (15:00)
[2017-11-20] MEDS: cefTRIAXone 1 GM/NS 50 ML IVPB IV SCH ×2 (15:02)
[2017-11-20] MEDS ORDERED: FLU QUADRIvalent (5+ YOA) 2018-2019 (AFLURIA) 0.5 ML IM ONE (15:30)
[2017-11-20] MEDS: NS IV 1000 ML 1,000 ML IV SCH ×2 (15:33→22:16)
[2017-11-20] MEDS ORDERED: CLON0.5T13 PO (15:44)
[2017-11-20] MEDS ORDERED: METR500T21 PO (15:44)
[2017-11-20] MEDS ORDERED: HYDR25TA4 PO (15:44)
[2017-11-20] MEDS ORDERED: LOSA100T8 PO (15:44)
[2017-11-20] MEDS ORDERED: ACET-2267 PO (15:44)
[2017-11-20] MEDS ORDERED: SERT50TA2 PO (15:44)
[2017-11-20] MEDS ORDERED: CIPR500T4 PO (15:44)
[2017-11-20] MEDS ORDERED: IBUP-30 PO (15:44)
[2017-11-20] MEDS: ACETAMINOPHEN 500 MG TAB (TYLENOL) PO PRN (18:10)
[2017-11-20 19:50] VITALS: BP 82/60
[2017-11-21] VITALS: BP 96/52
[2017-11-21 04:00] VITALS: BP 105/64
[2017-11-21] MEDS: ONDANSETRON 4 MG/2 ML (SDV) Z0FRAN IV PRN ×2 (04:06→14:59)
[2017-11-21] MEDS: NS IV 1000 ML 1,000 ML IV SCH ×3 (04:06→18:04)
[2017-11-21 05:58] LABS: BASOPHILS % (AUTO) 0 % (0-10); EOSINOPHILS % (AUTO) 0 % (0-10); HEMATOCRIT 36 % (35-52); HEMOGLOBIN 12.4 G/DL (11.5-16.0); LYMPHOCYTES % (AUTO) 9 % (12-44); MEAN CORPUSCULAR HEMOGLOBIN 32 PG (25-34); MEAN CORPUSCULAR HGB CONC 34 G/DL (32-36); MEAN CORPUSCULAR VOLUME 94 FL (80-99); MONOCYTES # (AUTO) 1.1 X 10^3 (0.0-1.0); MONOCYTES % (AUTO) 9 % (0-12); NEUTROPHILS # (AUTO) 9.8 X 10^3 (1.8-7.8); NEUTROPHILS % (AUTO) 82 % (42-75); PLATELET COUNT 321 10^3/uL (130-400); RED BLOOD COUNT 3.88 10^6/uL (4.35-5.85); RED CELL DISTRIBUTION WIDTH 13.9 % (10.0-14.5); WHITE BLOOD COUNT 11.9 10^3/uL (4.3-11.0)
--- NOTE | 2017-11-21 06:14 | History & Physicial (CHS) ---
HPI History of Present Illness: 57-year-old female presents to [facility] emergency department during the afternoon of November 20, 2017 with reports of nausea, vomiting, diarrhea. Her duration of illness has been about over the past 3 days. She apparently has been evaluated by the [facility] where she has had stool analysis done. She reports that stool has been evaluated multiple times but no etiology or reason found for her diarrhea. By her history she also has elevated liver enzymes. She has also apparently had fever off and on. Source: patient Exam Limitations: no limitations Date seen by provider: Nov 21, 2017 Time Seen by Provider: 07:00 Attending Physician Paige Bonilla DO [facility] Center/[place],[facility] Consult Date of Admission Nov 20, 2017 at 14:22 Home Medications Home Medications Reviewed patient Home Medication Reconciliation performed by pharmacy medication reconciliations transfill technician and/or nursing. Patients Allergies have been reviewed. Allergies Coded Allergies: No Known Drug Allergies (Unverified , 07/21/09) MON-Ysucmo-Gldjqj Hx Patient Social History Alcohol Use: Denies Use Recreational Drug Use: No Smoking Status: Current Everyday Smoker Type Used: Cigarettes 2nd Hand Smoke Exposure: Yes Recent Foreign Travel: No Contact w/other who traveled: No Recent Hopitalizations: No Recent Infectious Disease Expo: No Physical Abuse Screen: No Sexual Abuse: No Immunizations Up To Date Tetanus Booster (TDap): Unknown Review of Systems (CHC) Constitutional: see HPI Reviewed Test Results Reviewed Test Results Lab Laboratory Tests Test 11/20/17 12:45 11/20/17 13:00 11/20/17 13:19 11/21/17 05:49 Range/Units White Blood Count 15.4 H 11.9 H 4.3-11.0 10^3/uL Red Blood Count 4.79 3.88 L 4.35-5.85 10^6/uL Hemoglobin 15.0 12.4 11.5-16.0 G/DL Hematocrit 44 36 35-52 % Mean Corpuscular Volume 91 94 80-99 FL Mean Corpuscular Hemoglobin 31 32 25-34 PG Mean Corpuscular Hemoglobin Concent 34 34 32-36 G/DL Red Cell Distribution Width 14.1 13.9 10.0-14.5 % Platelet Count 442 H 321 130-400 10^3/uL Mean Platelet Volume 10.1 10.0 7.4-10.4 FL Neutrophils (%) (Auto) 80 H 82 H 42-75 % Lymphocytes (%) (Auto) 10 L 9 L 12-44 % Monocytes (%) (Auto) 9 9 0-12 % Eosinophils (%) (Auto) 0 0 0-10 % Basophils (%) (Auto) 0 0 0-10 % Neutrophils # (Auto) 12.3 H 9.8 H 1.8-7.8 X 10^3 Lymphocytes # (Auto) 1.6 1.0 1.0-4.0 X 10^3 Monocytes # (Auto) 1.5 H 1.1 H 0.0-1.0 X 10^3 Eosinophils # (Auto) 0.0 0.0 0.0-0.3 10^3/uL Basophils # (Auto) 0.1 0.0 0.0-0.1 10^3/uL Neutrophils % (Manual) 81 % Lymphocytes % (Manual) 14 % Monocytes % (Manual) 4 % Eosinophils % (Manual) 0 % Basophils % (Manual) 0 % Band Neutrophils 1 % Blood Morphology Comment NORMAL Sodium Level 133 L 135-145 MMOL/L Potassium Level 3.5 L 3.6-5.0 MMOL/L Chloride Level 101 98-107 MMOL/L Carbon Dioxide Level 20 L 21-32 MMOL/L Anion Gap 12 5-14 MMOL/L Blood Urea Nitrogen 11 7-18 MG/DL Creatinine 0.69 0.60-1.30 MG/DL Estimat Glomerular Filtration Rate > 60 BUN/Creatinine Ratio 16 Glucose Level 106 H 70-105 MG/DL Calcium Level 10.4 H 8.5-10.1 MG/DL Corrected Calcium 10.4 H 8.5-10.1 MG/DL Total Bilirubin 1.5 H 0.1-1.0 MG/DL Aspartate Amino Transf (AST/SGOT) 43 H 5-34 U/L Alanine Aminotransferase (ALT/SGPT) 47 0-55 U/L Alkaline Phosphatase 194 H 40-136 U/L Total Protein 7.6 6.4-8.2 GM/DL Albumin 4.0 3.2-4.5 GM/DL Amylase Level 50 25-125 U/L Lipase 58 8-78 U/L Urine Color BETHANY H Urine Clarity CLEAR Urine pH 5 5-9 Urine Specific [place] 1.015 L 1.016-1.022 Urine Protein 2+ H NEGATIVE Urine Glucose (UA) NEGATIVE NEGATIVE Urine Ketones 1+ H NEGATIVE Urine Nitrite POSITIVE H NEGATIVE Urine Bilirubin 2+ H NEGATIVE Urine Urobilinogen 4 H NORMAL MG/DL Urine Leukocyte Esterase 2+ H NEGATIVE Urine RBC (Auto) 4+ H NEGATIVE Urine RBC 2-5 H /HPF Urine WBC 5-10 H /HPF Urine Squamous Epithelial Cells 25-50 H /HPF Urine Crystals PRESENT H /LPF Urine Amorphous Sediment FEW CHAI URATES H /LPF Urine Bacteria MODERATE H /HPF Urine Casts NONE /LPF Urine Mucus SMALL H /LPF Urine Culture Indicated YES Lactic Acid Level 1.64 0.50-2.00 MMOL/L Physical Exam-(CHC) Physical Exam Vital Signs VS - Last 72 Hours, by Label 11/20/17 11/20/17 11/20/17 11/20/17 12:45 15:00 15:25 18:10 Temp 101.3 98.4 100.1 Pulse 112 0 Resp 18 16 B/P (MAP) 96/76 (83) 100/57 (71) Pulse Ox 95 90 O2 Delivery Room Air Room Air Room Air 11/20/17 11/20/17 11/20/17 11/21/17 18:54 19:30 19:50 00:00 Temp 97.1 98.4 98.6 Pulse 85 78 Resp 16 20 B/P (MAP) 82/60 (67) 96/52 (67) Pulse Ox 90 90 94 O2 Delivery Room Air Room Air Room Air 11/21/17 11/21/17 04:00 06:55 Temp 102.2 102.0 Pulse 97 Resp 20 B/P (MAP) 105/64 (78) Pulse Ox 91 O2 Delivery Room Air Capillary Refill : Less Than 3 Seconds General Appearance: no apparent distress Eyes: Bilateral Eye Normal Inspection Neck: non-tender Respiratory: lungs clear Cardiovascular: regular rate, rhythm Gastrointestinal: normal bowel sounds, non tender, soft Rectal: deferred Extremities: normal capillary refill Assessment/Plan Assessment/Plan Admission Dx 1. Urinary tract infection with possible pyelonephritis Admission Status: Inpatient Order (span 2 midnights) Reason for Inpatient Admission: Further fluid management as well as IV antibiotic Rocephin Assessment & Plan 1. Urinary tract infection with possible pyelonephritis -IV fluids initiated at 150 mL per hour -Urine culture pending -Patient has been initiated on IV Rocephin 1 g every 24 hours 2. Ongoing diarrhea -plan on rechecking C diff -O/P she may need referral to GI Clinical Quality Measures DVT/VTE Risk/Contraindication: Risk Factor Score Per Nursin RFS Level Per Nursing on Admit: 4+=Very High MAR DO MD Nov 21, 2017 06:13
[2017-11-21 06:22] LABS: ALANINE AMINOTRANSFERASE 32 U/L (0-55); ALBUMIN 3.2 GM/DL (3.2-4.5); ALKALINE PHOSPHATASE 136 U/L (40-136); BILIRUBIN,TOTAL 0.7 MG/DL (0.1-1.0); BUN/CREATININE RATIO 13; CARBON DIOXIDE 17 MMOL/L (21-32); CHLORIDE 109 MMOL/L (98-107); GFR ESTIMATED > 60; GLUCOSE 116 MG/DL (70-105); POTASSIUM 3.3 MMOL/L (3.6-5.0); SODIUM 135 MMOL/L (135-145); TOTAL PROTEIN 6.1 GM/DL (6.4-8.2)
[2017-11-21] MEDS: ACETAMINOPHEN 500 MG TAB (TYLENOL) PO PRN ×2 (06:55→15:01)
[2017-11-21 08:00] VITALS: BP 94/53
[2017-11-21] MEDS ORDERED: clonazePAM 0.5 MG (KlonoPIN) TAB PO PRN (11:45)
[2017-11-21 12:00] VITALS: BP 109/60
[2017-11-21] MEDS: cefTRIAXone 1 GM/NS 50 ML IVPB IV SCH ×2 (14:58)
[2017-11-21] MEDS: APAP 325 MG/10.15 ML LIQ (TYLENOL) UDC PO PRN ×2 (16:15→19:49)
[2017-11-21] MEDS ORDERED: PATIENT MAY USE OWN MEDS, ALL MC SCH (16:45)
[2017-11-21 16:53] VITALS: BP 113/70
[2017-11-21 20:00] VITALS: BP 98/66
[2017-11-22] VITALS: BP 91/59
[2017-11-22] MEDS: NS IV 1000 ML 1,000 ML IV SCH ×3 (00:39→12:52)
[2017-11-22] MEDS: APAP 325 MG/10.15 ML LIQ (TYLENOL) UDC PO PRN ×2 (05:06→12:58)
[2017-11-22] MEDS ORDERED: clonazePAM 0.5 MG (KlonoPIN) TAB PO PRN (07:45)
--- NOTE | 2017-11-22 08:30 | Progress Note (SOAP) ---
Subjective Subjective/Events-last exam Patient reports she still is having diarrhea. She denies any current dysuria. She had questions this morning about ongoing concerns about her diarrhea. Review of Systems Date Seen by Provider: Nov 22, 2017 Time Seen by Provider: 07:20 Focused Exam Lactate Level 11/20/17 13:19: Lactic Acid Level 1.64 Objective Exam Last Set of Vital Signs Vital Signs Date Time Temp Pulse Resp B/P (MAP) Pulse Ox O2 Delivery O2 Flow Rate FiO2 11/22/17 02:00 98.8 11/22/17 00:00 75 16 91/59 (70) 90 Room Air Capillary Refill : Less Than 3 Seconds I&O Intake and Output 11/22/17 00:00 Intake Total 4820 ml Balance 4820 ml Intake Oral 1850 ml IV Total 2970 ml # Voids 7 # Urine Diapers 4 # Bowel Movements 6 # Emeses 1 General: No Acute Distress Neck: Supple Lungs: Clear to Auscultation Heart: Regular Rate Abdomen: Soft Skin: No Rashes Psych/Mental Status: Mental Status NL Results/Procedures Lab Microbiology 11/20/17 Blood Culture - Preliminary, Resulted No growth 11/21/17 C. difficile GDH Antigen & Toxins - Final, Complete 11/20/17 Urine Culture - Final, Complete NO GROWTH Assessment/Plan Assessment/Plan Assessment & Plan 1. Urinary tract infection with possible pyelonephritis -IV fluids initiated at 150 mL per hour -Urine culture pending -Patient has been initiated on IV Rocephin 1 g every 24 hours 11/22 -Day number 2 Rocephin -Urine culture revealed no growth 2. Ongoing diarrhea -plan on rechecking C diff -O/P she may need referral to GI 11/22 -Case discussed with Dr. Lawson and will consult. -Patient will also have over and parasites checked Clinical Quality Measures DVT/VTE Risk/Contraindication: Risk Factor Score Per Nursin RFS Level Per Nursing on Admit: 4+=Very High MAR DO MD Nov 22, 2017 08:30
[2017-11-22] MEDS ORDERED: SERTRALINE 50 MG (ZOLOFT) TABLET PO SCH (09:00)
[2017-11-22] MEDS ORDERED: FLU QUADRIvalent (5+ YOA) 2018-2019 (AFLURIA) 0.5 ML IM ONE (09:06)
--- NOTE | 2017-11-22 12:08 | CONSULTATION REPORT ---
DATE OF SERVICE: 11/22/2017 ATTENDING PRIMARY CARE: [facility]. HISTORY OF PRESENT ILLNESS: The patient is a 57-year-old female, who presented to the Emergency Department with persistent diarrhea as well as the development of nausea and vomiting. She reports that approximately 1 week before that, she did have the development of this nausea and vomiting as well as systemic symptoms of fever, as well as joint pain, which may have indicated flu-like symptoms. She reports that the diarrhea has been occurring for the past 3 months. She does report that she did have a dental abscess requiring an incision and drainage as well as amoxicillin for approximately 10 days. She states that with the diarrhea, she does have some mild crampy abdominal pain as well. She states that food is definitely the stimulus for the diarrhea and even bland foods cause her to have the diarrhea. She has had a history of gastroesophageal reflux disease in the past and has undergone a transesophageal endoscopic fundoplication. Since that time, she has not had any issues with reflux. She is status post laparoscopic cholecystectomy approximately 8 years ago as well. She is unsure that if milk or milk products or a high carbohydrate meal from grain products makes her symptoms worse. She did have a colonoscopy in approximately 2013 and does not report any known abnormalities. She has been worked up in the past for Clostridium difficile on three different occasions; however, all of these tests have been negative. We are unsure of the etiology of her symptoms; however, this may be related to bacterial overgrowth within the colon and heightened gastrocolic reflux after eating food and persistent diarrhea. There is also the possibility of a sphincter of Oddi spasm and inappropriate amounts of bile release after eating a meal initiating increased bowel motility and diarrhea. At this time, she does not appear to be septic and in no acute distress. We will treat her empirically for Clostridium difficile as well as bacterial overgrowth with anaerobic coverage with metronidazole as well as start a diet and Lomotil p.r.n. as well as a small amount of Mu opioid receptor antagonist to decrease her bowel motility. PAST MEDICAL HISTORY: Hypertension and depression. PAST SURGICAL HISTORY: Transesophageal endoscopic fundoplication, laparoscopic cholecystectomy, section x2, partial hysterectomy in 1998, completion hysterectomy in 1999, left elbow tendon repair and appendectomy. ALLERGIES: No known drug allergies. MEDICATIONS: 1. Losartan. 2. Hydrochlorothiazide. 3. Amlodipine. 4. Zoloft. 5. Clonazepam. SOCIAL HISTORY: Positive smoke 40 pack years. Does drink alcohol. States about three drinks on the weekends. FAMILY HISTORY: Sister with glioblastoma. REVIEW OF SYSTEMS: This is a well-nourished female, currently in no acute distress. She is not experiencing any shortness of breath or difficulty in breathing. No chest pain, palpitations or diaphoresis. Currently, no nausea or vomiting; however, did have these symptoms approximately 1 week ago. She reports that she has instantaneous diarrhea after taking in any type of food substance. No red blood per rectum. No dark tarry stools. Minimal crampy abdominal pain. No fever or chills. No recent inadvertent weight loss. All other review of systems are negative. PHYSICAL EXAMINATION: VITAL SIGNS: Temperature 98.8, blood pressure 91/59, pulse 75, respirations 16, pulse ox 98% on room air. CHEST: Scattered wheezes bilaterally. HEART: Regular, no murmurs. EXTREMITIES: No lower extremity edema. Negative Homans sign. HEENT: No scleral icterus. NECK: No cervical lymphadenopathy. ABDOMEN: Soft, nontender and nondistended. LABORATORY DATA: WBC 11.9, hemoglobin 12.4, hematocrit 36 and platelets 321. ASSESSMENT AND PLAN: A 57-year-old female with persistent diarrhea. This may be due to a bacterial overgrowth; however, she has had three previous tests for Clostridium difficile, which have been negative. For now, we will treat her symptoms with anaerobic coverage with metronidazole 500 mg t.i.d. There is also the possibility of bile alkaline diarrhea from hyperkinesis and sphincter of Oddi spasm. If this is suspected, we will refer her to Gastroenterology for an ERCP and manometric studies. The potential for food allergies including gluten insensitivity as well as lactose intolerance also arises and at some point, she may need further testing as well as EGD and biopsies of the duodenum. For now, we will start the antibiotics as well as Lomotil and a limited amount of opioid pain medication in hopes of helping to slow her diarrhea. We will also start her on a diet and advance as tolerated. We will also recommend that she avoid caffeinated beverages, alcoholic beverages, spicy, greasy and acidic foods and proceed with a bland diet and avoidance of milk and milk products. Job ID: [id number] DocumentID: [id number] Dictated Date: 11/22/2017 11:31:35 Assistant Casino Shift Manager Date: 11/22/2017 12:07:23 Dictated By: TRINO SALAZAR MD
[2017-11-22 13:30] VITALS: BP 91/59
[2017-11-23 08:33] LABS: HEPATITIS C ANTIBODY C Non-Reactive (Non-Reactive)
--- NOTE | 2017-11-26 09:22 | Physician Query-Final Dx ---
Final Diagnosis Give Final Diagnosis Please give Final Diagnosis YARELI LYNN Nov 26, 2017 09:22
== END 2017-11-22 13:10 | disposition home or self-care (01) ==
LOC: EDUNIT# 11:43 → ER 11:44 → 4TH 14:22 → UNDOADMOB 14:22 → 4TH 14:55 → UNDODISOB 11-22 13:30
PROVIDERS: ADMIT Family Medicine; ATTEND Family Medicine
DX: N39.0 Urinary tract infection, site not specified (principal); R19.7 Diarrhea, unspecified; I10 Essential (primary) hypertension; F32.9 Major depressive disorder, single episode, unspecified; K21.9 Gastro-esophageal reflux disease without esophagitis; F41.9 Anxiety disorder, unspecified; F17.210 Nicotine dependence, cigarettes, uncomplicated; Z79.899 Other long term (current) drug therapy
CPT/HCPCS: 36415; 80053; 80074; 81000; 82150; 83605; 83690; 85007; 85025; 85027; 87040; 87045; 87046; 87088; 87324; 87328; 87329; 87449; 90686; 96361; 96374; 96375; G0378

== ENCOUNTER → 2018-01-11 | Outpatient (CLI) | payer BC ==
[~2018-01-11] VITALS: Ht 162.6 cm; Wt 64.9 kg
[~2018-01-11] MED LIST changes: +ACET-2267 PO; +AMLO5TAB7 PO; +BUDE3CAP5 PO; +CATHETER FLUSH 10 ML SYR IV PRN; +CIPR500T4 PO; +CLON0.5T13 PO; +IBUP-30 PO; +LOSA100T8 PO; +METR-197 PO; +REGADENOSON 0.4 MG/5 ML SYR (LEXISCAN) IV ONE; +SERT50TA2 PO
[2018-01-11 07:58] VITALS: BP 140/91
[2018-01-11 08:02] VITALS: BP 133/89
[2018-01-11 08:03] VITALS: BP 133/88
--- NOTE | 2018-01-11 22:49 | STRESS TEST ---
DATE OF SERVICE: 01/11/2018 NUCLEAR MYOVIEW REPORT SUMMARY: The patient was injected with 10.74 mCi of technetium-99 Myoview and the resting images were obtained. With peak stress images, a 31.3 mCi of technetium-99 Myoview were injected and the stress images were obtained. The resting and stress images were reviewed and compared in the short axis, horizontal long axis, and vertical long axis views. Review of the images showed breast attenuation with decreased uptake involving the mid to apical anteroseptum and inferoseptum with mild reversibility. SSS is 6, SDS 2, TID value of 1.1. On the gated images, the left ventricle appeared to be normal size with normal contractility. Calculated ejection fraction 78%. CONCLUSION: 1. Breast attenuation with decreased uptake at the mid anteroseptum and inferoseptum with mild reversibility. 2. Normal left ventricular size with normal contractility. Calculated ejection fraction 78%. Job ID: [id number] DocumentID: [id number] Dictated Date: 01/11/2018 16:14:56 Electric Frying Pan Repairer Date: 01/11/2018 22:48:38 Dictated By: MOHAN JAIME MD
== END ==
LOC: CARD 06:32
PROVIDERS: ATTEND Internal Medicine
DX: I10 Essential (primary) hypertension (principal); R06.00 Dyspnea, unspecified
CPT/HCPCS: 78452; 93017

== ENCOUNTER 2019-01-12 19:52 | Inpatient (IN) | payer BC ==
[~2019-01-12] VITALS: Ht 162.6 cm; Wt 70.5 kg
[~2019-01-12 19:52] MED LIST changes: -AMLO5TAB7 PO; +AMLO5TAB9 PO; -CATHETER FLUSH 10 ML SYR IV PRN; +LOSA100T57 PO; -LOSA100T8 PO; +LOSA50TA63 PO; -LOSA50TA7 PO; +METR-145 PO; -METR-197 PO; -REGADENOSON 0.4 MG/5 ML SYR (LEXISCAN) IV ONE
[2019-01-12] MEDS ORDERED: NS IV 1000 ML 1,000 ML IV SCH (20:24)
--- NOTE | 2019-01-12 20:31 | ED Cardiac General ---
History of Present Illness General Chief Complaint: Cardiac/General Problems Stated Complaint: LOW BP Source: patient Exam Limitations: no limitations History of Present Illness Date Seen by Provider: Jan 12, 2019 Time Seen by Provider: 20:28 Initial Comments To ER with reports of low blood pressure. This began at home, she had diaphoresis, lower abdominal pain, pain between her shoulder blades, felt very lightheaded and dizzy. She feels a little better now but still lightheaded. She reports black stools since Thursday, she is scheduled to have a colonoscopy with Dr. Dewitt on Thursday. She had 2 alcoholic beverages tonight, she typically drinks about a days a week (When asked if she drinks daily she states "sometimes".). She denies any persistent NSAID use. No history of this. History of pulmonary hypertension/pulmonary embolism (CTePH) has been on Eliquis but stopped that 3 days ago in preparation for the colonoscopy and transitioned to Lovenox 60 mg daily, she hasn't started that yet was supposed that started at 2- 3 days ago.. Timing/Duration: changing over time Severity: moderate Location: epigastric Activities at Onset: none Prior CP/Workup: no prior cardiac workup NTG SL FIELD HAND: No ASA po FIELD HAND: No Associated Systoms: Denies Symptoms Allergies and Home Medications Allergies Coded Allergies: No Known Drug Allergies (Unverified , 07/21/09) Home Medications Acetaminophen 500 Mg Tablet, 500-1,000 MG PO Q6H PRN for PAIN-MILD OR TEMPATURE, (Reported) Amlodipine Besylate 5 Mg Tablet, 5 MG PO BID, (Reported) Budesonide 3 Mg Capdr...er, 3 MG PO TID, (Reported) Clonazepam 0.5 Mg Tablet, 0.5 MG PO BID PRN for ANXIETY, (Reported) Losartan Potassium 100 Mg Tablet, 100 MG PO DAILY, (Reported) Patient Home Medication List Home Medication List Reviewed: Yes Review of Systems Review of Systems Constitutional: see HPI, weakness EENTM: No Symptoms Reported Respiratory: No Symptoms Reported Cardiovascular: No Symptoms Reported; Denies Chest Pain Gastrointestinal: See HPI, Abdominal Pain, Other (melena) Genitourinary: No Symptoms Reported Musculoskeletal: no symptoms reported Skin: no symptoms reported Psychiatric/Neurological: No Symptoms Reported Endocrine: No Symptoms Reported Hematologic/Lymphatic: No Symptoms Reported Past Zqbtfld-Ijgxls-Fwophy Hx Patient Social History Alcohol Beverage of Choice: Vodka Type Used: Cigarettes 2nd Hand Smoke Exposure: Yes Recent Foreign Travel: No Contact w/Someone Who Travel: No Recent Hopitalizations: Yes (Oct 2017) Immunizations Up To Date Tetanus Booster (TDap): Unknown Date of Influenza Vaccine: Nov 14, 2017 Seasonal Allergies Seasonal Allergies: No Past Medical History Surgeries: Yes (TIFF) Abdominal, Adenoidectomy, Appendectomy, Section, Gallbladder, Hysterectomy, Orthopedic, Tonsillectomy Respiratory: No Cardiac: No High Cholesterol, Hypertension Neurological: No Reproductive Disorders: No 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 0.0oz. 64.881946cs; 24.4 BMI Method:Stated General Appearance: No Apparent Distress, WD/WN, Other (alert and oriented, blood pressure 106/66 heart rate 95.) HEENT: PERRL/EOMI, TMs Normal Neck: Full Range of Motion, Normal Inspection Respiratory: Normal Breath Sounds, No Accessory Muscle Use, No Respiratory Distress Cardiovascular: Regular Rate, Rhythm, Normal Peripheral Pulses Gastrointestinal: Normal Bowel Sounds, Non Tender, Soft Extremity: Normal Capillary Refill, Normal Inspection Neurologic/Psychiatric: Alert, Oriented x3, Other (flat affect) Skin: Normal Color, Warm/Dry Focused Exam Lactate Level 01/12/19 20:53: Lactic Acid Level 2.66*H Lactic Acid Level Laboratory Tests Test 01/12/19 20:53 Lactic Acid Level 2.66 MMOL/L (0.50-2.00) *H Progress/Results/Core Measures Results/Orders Lab Results Laboratory Tests Test 01/12/19 20:32 01/12/19 20:53 Range/Units White Blood Count 10.5 4.3-11.0 10^3/uL Red Blood Count 2.95 L 4.35-5.85 10^6/uL Hemoglobin 9.5 L 11.5-16.0 G/DL Hematocrit 28 L 35-52 % Mean Corpuscular Volume 95 80-99 FL Mean Corpuscular Hemoglobin 32 25-34 PG Mean Corpuscular Hemoglobin Concent 34 32-36 G/DL Red Cell Distribution Width 13.1 10.0-14.5 % Platelet Count 290 130-400 10^3/uL Mean Platelet Volume 9.7 7.4-10.4 FL Neutrophils (%) (Auto) 73 42-75 % Lymphocytes (%) (Auto) 20 12-44 % Monocytes (%) (Auto) 4 0-12 % Eosinophils (%) (Auto) 3 0-10 % Basophils (%) (Auto) 0 0-10 % Neutrophils # (Auto) 7.7 1.8-7.8 X 10^3 Lymphocytes # (Auto) 2.1 1.0-4.0 X 10^3 Monocytes # (Auto) 0.4 0.0-1.0 X 10^3 Eosinophils # (Auto) 0.3 0.0-0.3 10^3/uL Basophils # (Auto) 0.0 0.0-0.1 10^3/uL Prothrombin Time 12.8 12.2-14.7 SEC INR Comment 0.9 0.8-1.4 Activated Partial Thromboplast Time 24 24-35 SEC Sodium Level 139 135-145 MMOL/L Potassium Level 3.6 3.6-5.0 MMOL/L Chloride Level 109 H 98-107 MMOL/L Carbon Dioxide Level 16 L 21-32 MMOL/L Anion Gap 14 5-14 MMOL/L Blood Urea Nitrogen 23 H 7-18 MG/DL Creatinine 0.70 0.60-1.30 MG/DL Estimat Glomerular Filtration Rate > 60 BUN/Creatinine Ratio 33 Glucose Level 127 H 70-105 MG/DL Calcium Level 9.2 8.5-10.1 MG/DL Corrected Calcium 9.2 8.5-10.1 MG/DL Magnesium Level 1.9 1.6-2.4 MG/DL Total Bilirubin 0.2 0.1-1.0 MG/DL Aspartate Amino Transf (AST/SGOT) 24 5-34 U/L Alanine Aminotransferase (ALT/SGPT) 23 0-55 U/L Alkaline Phosphatase 69 40-136 U/L Total Creatine Kinase 47 29-168 U/L Creatine Kinase MB 2.0 <6.6 NG/ML Myoglobin 22.2 10.0-92.0 NG/ML Troponin I < 0.028 <0.028 NG/ML B-Type Natriuretic Peptide 11.1 <100.0 PG/ML Total Protein 6.3 L 6.4-8.2 GM/DL Albumin 4.0 3.2-4.5 GM/DL Lipase 32 8-78 U/L TSH [place] Testing 1.36 0.35-4.94 UIU/ML Serum Alcohol 88 H <10 MG/DL Lactic Acid Level 2.66 *H 0.50-2.00 MMOL/L Micro Results My Orders Orders - AICHA PONCE APRN Alcohol (01/12/19 20:26) Red Cells Leukocytes Reduced (01/12/19 21:06) Type And Screen (01/12/19 21:06) Medications Given in ED Vital Signs/I&O 01/12/19 20:00 Temp 36.8 Pulse 99 Resp 20 B/P (MAP) 103/71 (82) Pulse Ox 96 Diagnostic Imaging Diagonstic Imaging: CT Comments NAME: SALVATORE HOLLAND MED REC#: [id number] PT STATUS: REG ER : 1960 PHYSICIAN: YOSVANY MURPHY DO ADMIT DATE: 01/12/19/ER Signed POSDate of Exam:01/12/19 CHEST 1 VIEW, AP/PA ONLY Patient History: Bloody stools. Technique: Single frontal view of the chest Comparison: 12/17/2010 FINDINGS: The lung volumes are normal. Right basilar opacities are present. No focal consolidation is seen. No large pleural effusion or pneumothorax is seen. The cardiomediastinal silhouette is normal in size and contour. No acute osseous abnormality is seen. IMPRESSION: 1. Right basilar opacities, which may represent infection or atelectasis. Dictated by: Dictated on workstation # [id number] Dict: 01/12/192137 Trans: 01/12/192140 ON LICENSE OF [facility] [id number] Interpreted by: ALEKSANDR WORKMAN DO Electronically signed by: ALEKSANDR WORKMAN DO 01/12/192140 Departure Communication (Admissions) Time/Spoke to Admitting Phy: 21:[address] Mohamud will admit, consult surgery in the morning. 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 Aware of potential for worsening of GI bleeding but concerned about her risk of recurrent dvt/PE, I discussed with her that this could worsen bleeding, she states that her e business project manager wanted her to have the Lovenox and would like to proceed with that. Impression Primary Impression: GI bleed Qualified Codes: K92.2 - Gastrointestinal hemorrhage, unspecified Additional Impression: Pre-syncope Disposition: ADMITTED INPATIENT Condition: Stable Admissions Decision to Admit Reason: Admit from ER (General) Decision to Admit/Date: Jan 12, 2019 Time/Decision to Admit Time: 22:57 Departure-Patient Inst. Referrals: ABENA BOYLE DO (PCP/Family) Primary Care Physician AICHA PONCE APRN Jan 12, 2019 20:31 POS
[2019-01-12 20:43] LABS: BASOPHILS % (AUTO) 0 % (0-10); EOSINOPHILS # (AUTO) 0.3 10^3/uL (0.0-0.3); EOSINOPHILS % (AUTO) 3 % (0-10); HEMATOCRIT 28 % (35-52); HEMOGLOBIN 9.5 G/DL (11.5-16.0); LYMPHOCYTES # (AUTO) 2.1 X 10^3 (1.0-4.0); LYMPHOCYTES % (AUTO) 20 % (12-44); MEAN CORPUSCULAR HEMOGLOBIN 32 PG (25-34); MEAN CORPUSCULAR HGB CONC 34 G/DL (32-36); MEAN CORPUSCULAR VOLUME 95 FL (80-99); MEAN PLATELET VOLUME 9.7 FL (7.4-10.4); MONOCYTES # (AUTO) 0.4 X 10^3 (0.0-1.0); MONOCYTES % (AUTO) 4 % (0-12); NEUTROPHILS # (AUTO) 7.7 X 10^3 (1.8-7.8); NEUTROPHILS % (AUTO) 73 % (42-75); PLATELET COUNT 290 10^3/uL (130-400); RED CELL DISTRIBUTION WIDTH 13.1 % (10.0-14.5); WHITE BLOOD COUNT 10.5 10^3/uL (4.3-11.0)
[2019-01-12 20:58] LABS: INR 0.9 (0.8-1.4); PROTHROMBIN TIME PATIENT 12.8 SEC (12.2-14.7)
[2019-01-12 21:05] LABS: ALANINE AMINOTRANSFERASE 23 U/L (0-55); ALKALINE PHOSPHATASE 69 U/L (40-136); BILIRUBIN,TOTAL 0.2 MG/DL (0.1-1.0); BUN/CREATININE RATIO 33; CALCIUM 9.2 MG/DL (8.5-10.1); CARBON DIOXIDE 16 MMOL/L (21-32); CHLORIDE 109 MMOL/L (98-107); CREATINE KINASE 47 U/L (29-168); GFR ESTIMATED > 60; GLUCOSE 127 MG/DL (70-105); LIPASE 32 U/L (8-78); MAGNESIUM 1.9 MG/DL (1.6-2.4); POTASSIUM 3.6 MMOL/L (3.6-5.0); SODIUM 139 MMOL/L (135-145); TOTAL PROTEIN 6.3 GM/DL (6.4-8.2)
[2019-01-12 21:24] LABS: TSH (THYROID ANALYZER) 1.36 UIU/ML (0.35-4.94)
--- NOTE | 2019-01-12 21:40 | Diagnostic Imaging Report ---
Patient History: Bloody stools. Technique: Single frontal view of the chest Comparison: 12/17/2010 FINDINGS: The lung volumes are normal. Right basilar opacities are present. No focal consolidation is seen. No large pleural effusion or pneumothorax is seen. The cardiomediastinal silhouette is normal in size and contour. No acute osseous abnormality is seen. IMPRESSION: 1. Right basilar opacities, which may represent infection or atelectasis. Dictated by: Dictated on workstation # [id number]
[2019-01-12] MEDS ORDERED: NS 100 ML (IVPB) BAG IV ONE (22:00)
[2019-01-12] MEDS ORDERED: HOLD METFORMIN - RECEIVED CONTRAST 20 ML VIAL IV SCH (22:00)
[2019-01-12] MEDS ORDERED: IOHEXOL 350 MG/ML 100 ML (OMNIPAQUE 350) VIAL IV ONE (22:00)
[2019-01-12 22:07] LABS: BILIRUBIN,URINE NEGATIVE (NEGATIVE); CLARITY,URINE SL CLOUDY; COLOR,URINE YELLOW; GLUCOSE, URINE (UA) NEGATIVE (NEGATIVE); KETONES,URINE NEGATIVE (NEGATIVE); LEUKOCYTE ESTERASE ,URINE NEGATIVE (NEGATIVE); NITRITE,URINE NEGATIVE (NEGATIVE); PH,URINE 5.5 (5-9); PROTEIN,URINE NEGATIVE (NEGATIVE)
[2019-01-12 22:15] LABS: BACTERIA,URINE TRACE /HPF
[2019-01-12] MEDS ORDERED: ENOXAPARIN 60 MG/0.6 ML (LOVENOX) SYR SC ONE (22:45)
[2019-01-12] MEDS ORDERED: clonazePAM 0.5 MG (KlonoPIN) TAB PO ONE (22:45)
[2019-01-12 23:28] VITALS: BP 113/70
[2019-01-12] MEDS ORDERED: NS IV 1000 ML 1,000 ML ONE (23:47)
[2019-01-13] VITALS (11 sets, daily range): BP systolic 112–147; BP diastolic 68–84
[2019-01-13] MEDS ORDERED: 1/2 NS IV SOLUTION 1,000 ML IV PRN (00:54)
[2019-01-13] MEDS ORDERED: D5 1/2 NS 1000 ML IV SOLUTION 1,000 ML IV PRN (01:00)
[2019-01-13] MEDS ORDERED: SENNA W/DOCUSATE (SENOKOT S) TABLET PO PRN (01:00)
[2019-01-13] MEDS ORDERED: ONDANSETRON 4 MG (ZOFRAN) ORAL DISSOLVE TAB SL PRN (01:00)
[2019-01-13] MEDS ORDERED: LORazepam INJ 2 MG/ML (ATIVAN) VIAL IM/IV PRN (01:00)
[2019-01-13] MEDS ORDERED: fentaNYL INJECTION 100 MCG/2 ML AMP IV PRN (01:00)
[2019-01-13] MEDS ORDERED: LORazepam INJ 2 MG/ML (ATIVAN) VIAL IV PRN (01:00)
[2019-01-13] MEDS ORDERED: LORazepam 1 MG (ATIVAN) TAB PO PRN (01:00)
[2019-01-13] MEDS ORDERED: ONDANSETRON 4 MG/2 ML (SDV) Z0FRAN IV PRN ×2 (01:00)
[2019-01-13] MEDS ORDERED: ANTACID SUSP 30 ML UDC (MYLANTA) PO PRN (01:00)
--- NOTE | 2019-01-13 01:00 | NUR ---
SALVATORE HOLLAND admitted to room 419-1, with an admitting diagnosis of gi bleed, pre-syncope, rll pna, on 01/12/19 from ed via , accompanied by staff & .SALVATORE HOLLAND introduced to surroundings, call light, bed controls, phone, TV, temperature control, lights, meal times, smoking policy, visitor policy, side rail policy, bathrooms and showers. Patient Rights given to patient in the handbook. SALVATORE HOLLAND verbalizes understanding that [facility] is not responsible for the loss or damage to any personal effects or valuables that are kept in the patients possession during their hospitalization. The patient's plan of care was discussed with the patient, she agrees to the plan, denies any questions of concerns at this time. SALVATORE HOLLAND verbalizes understanding of Interdisciplinary Patient Education.
[2019-01-13] MEDS: NS IV 1000 ML 1,000 ML IV SCH ×3 (01:50→15:56)
--- NOTE | 2019-01-13 04:20 | NUR ---
ASSUMED PT CARE FROM MARIA A SHAH
[2019-01-13 06:09] LABS: BASOPHILS % (AUTO) 0 % (0-10); EOSINOPHILS # (AUTO) 0.2 10^3/uL (0.0-0.3); EOSINOPHILS % (AUTO) 3 % (0-10); HEMATOCRIT 24 % (35-52); HEMOGLOBIN 7.8 G/DL (11.5-16.0); LYMPHOCYTES # (AUTO) 1.9 X 10^3 (1.0-4.0); LYMPHOCYTES % (AUTO) 27 % (12-44); MEAN CORPUSCULAR HEMOGLOBIN 31 PG (25-34); MEAN CORPUSCULAR HGB CONC 33 G/DL (32-36); MEAN CORPUSCULAR VOLUME 96 FL (80-99); MEAN PLATELET VOLUME 9.5 FL (7.4-10.4); MONOCYTES # (AUTO) 0.4 X 10^3 (0.0-1.0); MONOCYTES % (AUTO) 6 % (0-12); NEUTROPHILS # (AUTO) 4.5 X 10^3 (1.8-7.8); NEUTROPHILS % (AUTO) 64 % (42-75); PLATELET COUNT 245 10^3/uL (130-400); WHITE BLOOD COUNT 7.1 10^3/uL (4.3-11.0)
[2019-01-13 06:28] LABS: ALANINE AMINOTRANSFERASE 19 U/L (0-55); ALBUMIN 3.6 GM/DL (3.2-4.5); ALKALINE PHOSPHATASE 59 U/L (40-136); BILIRUBIN,TOTAL 0.3 MG/DL (0.1-1.0); BUN/CREATININE RATIO 26; CALCIUM 8.4 MG/DL (8.5-10.1); CARBON DIOXIDE 21 MMOL/L (21-32); CHLORIDE 112 MMOL/L (98-107); CREATININE SERUM 0.65 MG/DL (0.60-1.30); GFR ESTIMATED > 60; GLUCOSE 96 MG/DL (70-105); POTASSIUM 4.2 MMOL/L (3.6-5.0); SODIUM 141 MMOL/L (135-145); TOTAL PROTEIN 5.5 GM/DL (6.4-8.2)
[2019-01-13] MEDS ORDERED: THIAMINE 100 MG (VITAMIN B-1) TAB PO SCH (07:00)
[2019-01-13] MEDS ORDERED: MULTIVIT W/MINERALS TAB (THERAGRAN M) PO SCH (07:00)
[2019-01-13] MEDS: PANTOPRAZOLE 40 MG (PROTONIX) VIAL IV SCH ×2 (07:43→22:07)
--- NOTE | 2019-01-13 08:28 | Diagnostic Imaging Report ---
PROCEDURE: CT angiography of the chest with contrast. TECHNIQUE: Multiple contiguous axial images were obtained through the chest after uneventful bolus administration of intravenous contrast. 3D reconstructed CTA MIP acquisitions were also performed. Auto Exposure Controls were utilized during the CT exam to meet ALARA standards for radiation dose reduction. INDICATION: Syncope. COMPARISON: 03/21/2017 FINDINGS: There is no acute pulmonary embolus at the first subsegmental division of the pulmonary arteries. Main pulmonary arterial trunk is enlarged measuring 3.7 cm in diameter. There is mild scattered calcified aortic and coronary atherosclerosis. Thoracic aorta is otherwise normal in course and caliber. Heart size is within normal limits. There is no large pericardial effusion. No pathologically enlarged or morphologically abnormal adenopathy is seen within the mediastinum, fred, nor axilla. Evaluation of the lung lopez demonstrates background moderate emphysematous disease. Bandlike scarring with associated atelectasis is noted within the right apex. There is no focal consolidation, large effusion, nor pneumothorax. No suspicious pulmonary nodules or masses are identified. Osseous structures show no acute abnormalities. No lytic or blastic bony lesions are identified. Included portions of the upper abdomen show a few benign-appearing hepatic cysts. IMPRESSION: 1. No CT evidence of acute pulmonary embolus at the first subsegmental division of the pulmonary arteries. 2. Dilatation of the main pulmonary arterial trunk. Findings can be seen with underlying pulmonary arterial hypertension. 3. Background moderate emphysematous changes. Dictated by: Dictated on workstation # [id number]
[2019-01-13] MEDS ORDERED: PATIENT MAY USE OWN MEDS, ALL MC SCH (08:30)
[2019-01-13] MEDS: RIOCIGUAT 2.5 MG PO SCH ×3 (08:51→22:06)
[2019-01-13] MEDS ORDERED: FOLIC ACID 1 MG TAB PO SCH (09:00)
[2019-01-13] MEDS ORDERED: MAGNESIUM OXIDE (MAG-OX)400 MG TAB PO SCH (09:00)
[2019-01-13] MEDS ORDERED: RIOC2.5T PO (10:44)
[2019-01-13] MEDS ORDERED: ENOX60DI7 SC (10:50)
--- NOTE | 2019-01-13 10:55 | NUR ---
SPOKE WITH THE PATIENT ABOUT HER MEDICATIONS. SHE LISTED WHAT SHE TAKES AND I COMPARED IT WITH THE EXT MED HX. SHE NORMALLY TAKES ELIQUIS 5MG BID HOWEVER SHE WAS SCHEDULED FOR AN UPCOMING PROCEDURE AND TOLD TO STOP THE ELIQUIS. HER SPECIALIST DOES NOT WANT HER OFF OF THAT SO THEY PRESCRIBED LOVENOX TO TAKE BETWEEN WHEN ELIQUIS WAS STOPPED AND THE SCHEDULED PROCEDURE. SHE TOOK HER LAST DOSE OF ELIQUIS THURSDAY MORNING 01-10-19, SHE FILLED THE LOVENOX 01-12-19 HOWEVER HAS NOT USED IT DUE TO BEING ADMITTED. SHE STATES SHE IS NOT TO TAKE THE ELIQUIS THE DAY OF THE PROCEDURE. [facility] FILLED #8 60MG SYRINGES OF LOVENOX BID 01-12-19. SHE STATES SHE TAKES TYLENOL OTC PRN.
[2019-01-13] MEDS ORDERED: APIX5TAB PO (11:17)
[2019-01-13] MEDS: BISACODYL 5 MG (DULCOLAX) TABLET PO SCH ×2 (12:00→16:11)
--- NOTE | 2019-01-13 12:14 | Consultation - Surgery ---
History of Present Illness History of Present Illness Patient Consulted On(deondre/time) 01/13/19 12:08 Time Seen by Provider: 09:41 History of Present Illness Surgery asked to consult regarding anemia and GI bleed. HPI per ED: To ER with reports of low blood pressure. This began at home, she had diaphoresis, lower abdominal pain, pain between her shoulder blades, felt very lightheaded and dizzy. She feels a little better now but still lightheaded. She reports black stools since Thursday, she is scheduled to have a colonoscopy with Dr. Dewitt on Thursday. She had 2 alcoholic beverages tonight, she typically drinks about a days a week (When asked if she drinks daily she states "sometimes".). She denies any persistent NSAID use. No history of this. History of pulmonary hypertension/pulmonary embolism (CTePH) has been on Eliquis but stopped that 3 days ago in preparation for the colonoscopy and transitioned to Lovenox 60 mg daily, she hasn't started that yet was supposed that started at 2- 3 days ago.. Timing/Duration: changing over time Severity: moderate Location: epigastric Pt states she thought "I was gonna the other night, then I found out my blood sugar was 32 and BP was 62/31". I actually saw her on Thursday and she stated her hemoglobin dropped from previous blood draw; "it was appx 11 and then last night around 9". Allergies and Home Medications Allergies Coded Allergies: nitroglycerin (Verified Allergy, Severe, Anaphylaxis, 01/13/19) Home Medications Acetaminophen 500 Mg Tablet, 500-1,000 MG PO Q4H PRN for PAIN-MILD OR TEMPATURE, (Reported) Apixaban 5 Mg Tablet, 5 MG PO BID, (Reported) ON HOLD WHILE ON LOVENOX UNTIL PROCEDURE Clonazepam 0.5 Mg Tablet, 0.5 MG PO BID PRN for ANXIETY, (Reported) Enoxaparin Sodium 60 Mg/0.6 Ml Syringe, 60 MG SC BID, (Reported) FILLED #8 SYRINGES 01-12-19 HAS NOT TAKEN YET; TO BE TAKING WHILE OFF ELIQUIS AWAITING SCHEDULED PROCEDURE Riociguat 2.5 Mg Tablet, 2.5 MG PO TID, (Reported) Patient Home Medication List Home Medication List Reviewed: Yes Past Ewcglds-Gmtruh-Btrotq Hx Patient Social History Alcohol Use: Regular Use Number of Drinks Today: FF Recreational Drug Use: No Type Used: Cigarettes 2nd Hand Smoke Exposure: Yes Recent Foreign Travel: No Contact w/Someone Who Travel: No Recent Infectious Disease Expo: No Recent Hopitalizations: Yes (Oct 2017) Immunizations Up To Date Tetanus Booster (TDap): Unknown Date of Pneumonia Vaccine: Dec 27, 2018 Date of Influenza Vaccine: Nov 30, 2018 Seasonal Allergies Seasonal Allergies: No Surgeries History of Surgeries: Yes (TIFF) Surgeries: Abdominal, Adenoidectomy, Appendectomy, Section, Gallbladder, Hysterectomy, Orthopedic, Tonsillectomy Respiratory History of Respiratory Disorde: No Cardiovascular History of Cardiac Disorders: No Cardiac Disorders: High Cholesterol, Hypertension Neurological History of Neurological Disord: No Reproductive System : No Hx Reproductive Disorders: No Sexually Transmitted Disease: No 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 Genitourinary History of Genitourinary Disor: No Gastrointestinal History of Gastrointestinal Di: Yes Gastrointestinal Disorders: Colitis, Gastroesophageal Reflux, Chronic Diarrhea Musculoskeletal History of Musculoskeletal Dis: No Endocrine History of Endocrine Disorders: No HEENT History of HEENT Disorders: No Cancer History of Cancer: No Psychosocial History of Psychiatric Problem: Yes Behavioral Health Disorders: Anxiety, Suicide Attempts, Depression Integumentary History of Skin or Integumenta: No Blood Transfusions History of Blood Disorders: No Family Medical History Significant Family History: Hypertension Family Medial History: Hypercholesterolemia G8 BROTHER Review of Systems-General Constitutional: dizziness, malaise, weakness EENTM: blurred vision; No mouth pain, No mouth swelling Respiratory: No cough, No dyspnea on exertion, No hemoptysis, No short of breath Cardiovascular: No chest pain, No edema, No palpitations Gastrointestinal: No abdominal pain; melena; No nausea, No vomiting Genitourinary: No dysuria, No frequency, No hematuria Musculoskeletal: No joint pain, No muscle pain, No muscle stiffness Skin: No change in color, No change in hair/nails Psychiatric/Neurological: Anxiety; Denies Depressed, Denies Seizure Other pt does have bleeding problems because she is on a blood thinner Physical Exam-General Problems Physical Exam Vital Signs Vital Signs - First Documented 01/12/19 01/12/19 20:00 23:28 Temp 36.8 Pulse 99 Resp 20 B/P (MAP) 103/71 (82) Pulse Ox 96 O2 Delivery Room Air Capillary Refill : Less Than 3 SecondsLess Than 3 Seconds General Appearance: WD/WN, mild distress Eyes: Bilateral Eye PERRL, Bilateral Eye EOMI HEENT: pharynx normal; No scleral icterus (R), No scleral icterus (L), No pale conjunctivae (R), No pale conjunctivae (L) Neck: full range of motion, supple Respiratory: chest non-tender, lungs clear, normal breath sounds, no respiratory distress, no accessory muscle use Cardiovascular: regular rate, rhythm, no edema, no murmur Gastrointestinal: normal bowel sounds, non tender, soft, no organomegaly, no pulsatile mass Back: no CVA tenderness, no vertebral tenderness Extremities: normal range of motion, non-tender, no pedal edema, no calf tenderness, normal capillary refill Neurologic/Psychiatric: keypuncher II-XII nml as tested, no motor/sensory deficits, alert, normal mood/affect, oriented x 3 Skin: warm/dry, pallor (??very slight) Lymphatic: no adenopathy (neck, axilla or groin) Data Review Labs Laboratory Tests 01/12/19 20:32: White Blood Count 10.5, Red Blood Count 2.95L, Hemoglobin 9.5L, Hematocrit 28L, Mean Corpuscular Volume 95, Mean Corpuscular Hemoglobin 32, Mean Corpuscular Hemoglobin Concent 34, Red Cell Distribution Width 13.1, Platelet Count 290, Mean Platelet Volume 9.7, Neutrophils (%) (Auto) 73, Lymphocytes (%) (Auto) 20, Monocytes (%) (Auto) 4, Eosinophils (%) (Auto) 3, Basophils (%) (Auto) 0, Neutrophils # (Auto) 7.7, Lymphocytes # (Auto) 2.1, Monocytes # (Auto) 0.4, Eosinophils # (Auto) 0.3, Basophils # (Auto) 0.0, Prothrombin Time 12.8, INR Comment 0.9, Activated Partial Thromboplast Time 24, Sodium Level 139, Potassium Level 3.6, Chloride Level 109H, Carbon Dioxide Level 16L, Anion Gap 14, Blood Urea Nitrogen 23H, Creatinine 0.70, Estimat Glomerular Filtration Rate > 60, BUN/Creatinine Ratio 33, Glucose Level 127H, Calcium Level 9.2, Corrected Calcium 9.2, Magnesium Level 1.9, Total Bilirubin 0.2, Aspartate Amino Transf (AST/SGOT) 24, Alanine Aminotransferase (ALT/SGPT) 23, Alkaline Phosphatase 69, Total Creatine Kinase 47, Creatine Kinase MB 2.0, Myoglobin 22.2, Troponin I < 0.028, B-Type Natriuretic Peptide 11.1, Total Protein 6.3L, Albumin 4.0, Lipase 32, TSH [place] Testing 1.36, Serum Alcohol 88H 01/12/19 20:53: Lactic Acid Level 2.66*H 01/12/19 21:50: Urine Color YELLOW, Urine Clarity SL CLOUDY, Urine pH 5.5, Urine Specific [place] 1.020, Urine Protein NEGATIVE, Urine Glucose (UA) NEGATIVE, Urine Ketones NEGATIVE, Urine Nitrite NEGATIVE, Urine Bilirubin NEGATIVE, Urine Urobilinogen 0.2, Urine Leukocyte Esterase NEGATIVE, Urine RBC (Auto) NEGATIVE, Urine RBC NONE, Urine WBC NONE, Urine Squamous Epithelial Cells 5-10, Urine Crystals NONE, Urine Bacteria TRACE, Urine Casts NONE, Urine Mucus NEGATIVE, Urine Culture Indicated NO 01/12/19 22:47: Glucometer 32*L 01/12/19 22:52: Glucometer 104 01/12/19 23:14: Glucometer 91 01/13/19 00:00: Lactic Acid Level 1.87 01/13/19 05:41: White Blood Count 7.1, Red Blood Count 2.49L, Hemoglobin 7.8L, Hematocrit 24L, Mean Corpuscular Volume 96, Mean Corpuscular Hemoglobin 31, Mean Corpuscular Hemoglobin Concent 33, Red Cell Distribution Width 13.0, Platelet Count 245, Mean Platelet Volume 9.5, Neutrophils (%) (Auto) 64, Lymphocytes (%) (Auto) 27, Monocytes (%) (Auto) 6, Eosinophils (%) (Auto) 3, Basophils (%) (Auto) 0, Neutrophils # (Auto) 4.5, Lymphocytes # (Auto) 1.9, Monocytes # (Auto) 0.4, Eosinophils # (Auto) 0.2, Basophils # (Auto) 0.0, Sodium Level 141, Potassium Level 4.2, Chloride Level 112H, Carbon Dioxide Level 21, Anion Gap 8, Blood Urea Nitrogen 17, Creatinine 0.65, Estimat Glomerular Filtration Rate > 60, BUN/Creatinine Ratio 26, Glucose Level 96, Calcium Level 8.4L, Corrected Calcium 8.7, Total Bilirubin 0.3, Aspartate Amino Transf (AST/SGOT) 20, Alanine Aminotransferase (ALT/SGPT) 19, Alkaline Phosphatase 59, Total Protein 5.5L, Albumin 3.6 Microbiology 01/12/19 Influenza Types A,B Antigen (FREDERICK) - Final, Complete Assessment/Plan Assessment/Plan Assessment/Plan Melena Anemia CTEPH Pt is getting bridged on Lovenox and her Hg has dropped 2 points from blood draw about a week ago. Plan to do colonoscopy/EGD tomorrow; it was planned for Thursday. Will start colonoscopy prep now and get consent. Discussed the procedure with pt; risks and complications not limited to pain, bleeding, infection, esophageal or intestinal perforation. All questions answered to her satisfaction. Clinical Quality Measures AMI/AHF: ASA po Prior to arrival: No DVT/VTE Risk/Contraindication: Risk Factor Score Per Nursin RFS Level Per Nursing on Admit: 4+=Very High AUNDREA DEWITT DO Jan 13, 2019 12:14 POS
[2019-01-13 17:35] LABS: HEMOGLOBIN 7.1 G/DL (11.5-16.0)
--- NOTE | 2019-01-13 17:41 | History & Physical-Hospitalist ---
History of Present Illness HPI/Chief Complaint Radha Geronimo is a 58yoF with PMH CTEPH on chronic anticoagulation who presented with lightheadedness, dizziness, and melena. She had been having melena and had followed up with her primary care doctor who performed an occult blood test which was positive. She was scheduled to undergo endoscopy as an outpatient but then developed symptomatic anemia. She denies hematochezia. She denies fevers and chills. She denies chest pain and dyspnea. She denies nausea, vomiting, and hematemesis. She denies abdominal pain. She denies NSAID use. She has a history of GERD and fundoplication. She does not take any acid medications regularly. Source: patient Exam Limitations: no limitations Date Seen 01/13/19 Time Seen by a Provider: 16:30 Attending Physician Peggy Mohamud DO PCP Tony Waterman DO Referring Physician Date of Admission Jan 12, 2019 at 21:09 Home Medications & Allergies Home Medications Reviewed patient Home Medication Reconciliation performed by pharmacy medication reconciliations chiller technician and/or nursing. Patients Allergies have been reviewed. Allergies Allergies Coded Allergies nitroglycerin (Verified Allergy, Severe, Anaphylaxis, 01/13/19) Past Vxytegr-Mljwsx-Xkgabb Hx Past Med/Social Hx: Reviewed Nursing Past Med/Soc Hx Patient Social History Alcohol Use: Regular Use Number of Drinks Today: FF Alcohol Beverage of Choice: Vodka Recreational Drug Use: No Type Used: Cigarettes 2nd Hand Smoke Exposure: Yes Recent Foreign Travel: No Contact w/other who traveled: No Recent Hopitalizations: Yes (Oct 2017) Recent Infectious Disease Expo: No Immunizations Up To Date Tetanus Booster (TDap): Unknown Date of Pneumonia Vaccine: Dec 27, 2018 Date of Influenza Vaccine: Nov 30, 2018 Seasonal Allergies Seasonal Allergies: No Past Medical History Surgeries: Abdominal, Adenoidectomy, Appendectomy, Section, Gallbladd er, Hysterectomy, Orthopedic, Tonsillectomy Cardiac: High Cholesterol, Hypertension : No Reproductive: No Sexually Transmitted Disease: No Hysterectomy Gastrointestinal: Colitis, Gastroesophageal Reflux, Chronic Diarrhea Psychosocial: Anxiety, Suicide Attempts, Depression History of Blood Disorders: No Family History Hypercholesterolemia G8 BROTHER Hypertension Review of Systems Constitutional: dizziness, weakness EENTM: no symptoms reported Respiratory: no symptoms reported Cardiovascular: no symptoms reported Gastrointestinal: melena Genitourinary: no symptoms reported Musculoskeletal: no symptoms reported Skin: no symptoms reported Psychiatric/Neurological: No Symptoms Reported Physical Exam Physical Exam Vital Signs Vital Signs - First Documented 01/12/19 01/12/19 20:00 23:28 Temp 36.8 Pulse 99 Resp 20 B/P (MAP) 103/71 (82) Pulse Ox 96 O2 Delivery Room Air Capillary Refill : Less Than 3 SecondsLess Than 3 Seconds Height, Weight, BMI Height: 5'4.00" Weight: 142lbs. 0.0oz. [id number]; 26.66 BMI Method:Stated General Appearance: No Apparent Distress, WD/WN, Anxious HEENT: PERRL/EOMI, Pharynx Normal Neck: Normal Inspection, Supple Respiratory: Lungs Clear, Normal Breath Sounds, No Respiratory Distress Cardiovascular: Regular Rate, Rhythm, No Edema, No Murmur Gastrointestinal: Normal Bowel Sounds, Non Tender, Soft Extremity: Normal Inspection, Non Tender, No Pedal Edema Neurologic/Psychiatric: Alert, Oriented x3, No Motor/Sensory Deficits, Normal Mood/Affect Skin: Warm/Dry, Pallor Lymphatic: No Adenopathy Results Results/Procedures Labs Laboratory Tests 01/12/19 20:32 01/13/19 05:41 Patient resulted labs reviewed. Imaging: Reviewed Imaging Report Assessment/Plan Admission Diagnosis Acute blood loss anemia Admission Status: Inpatient Order (span 2 midnights) Reason for Inpatient Admission: Melena with anemia requiring endoscopic intervention Assessment and Plan Melena Acute blood loss anemia -Hgb 7.8 this morning, down from baseline ~11 -Continues to have melena -Repeat Hgb this evening -Type and screen done -Started on IV PPI BID -Surgery consulted -Scheduled for EGD/colonoscopy tomorrow -NPO at midnight -Colon prep this evening -Hold anticoagulation Lactic acidosis -LA 2.33 on admission, improved to 1.87 -Continue IV fluids CTEPH -Hold anticoagulation -Continue Adempas Alcohol use -EtOH 87 on arrival -No history of withdrawal -Not an every day drinker -Discontinue CIWA protocol Diagnosis/Problems Diagnosis/Problems (1) Melena Status: Acute (2) Acute blood loss anemia Status: Acute (3) Lactic acidosis Status: Acute (4) CTEPH (chronic thromboembolic pulmonary hypertension) Status: Chronic (5) Alcohol use Status: Chronic Clinical Quality Measures AMI/AHF: ASA po Prior to arrival: No DVT/VTE Risk/Contraindication: Risk Factor Score Per Nursin RFS Level Per Nursing on Admit: 4+=Very High ALEXIS JOHNSON MD Jan 13, 2019 17:41 POS
[2019-01-13] MEDS ORDERED: POLYETHYLENE GLYCOL 17 GM (MIRALAX) PACK PO SCH (18:00)
[2019-01-13] MEDS ORDERED: NS IV 500 ML 500 ML ONE (19:51)
[2019-01-13] MEDS: clonazePAM 0.5 MG (KlonoPIN) TAB PO PRN (22:07)
[2019-01-14] VITALS (8 sets, daily range): BP systolic 100–134; BP diastolic 70–89
[2019-01-14 06:54] LABS: HEMOGLOBIN 8.2 G/DL (11.5-16.0)
[2019-01-14] MEDS ORDERED: PROPOFOL INJECTION 50 ML IV ONE ×2 (06:59→08:00)
[2019-01-14] MEDS ORDERED: MIDAZOLAM 2 MG/2 ML (VERSED) VIAL ONE (06:59)
--- NOTE | 2019-01-14 07:15 | NUR ---
Surgery here to transport patient for procedure.
[2019-01-14] MEDS ORDERED: LACTATED RINGERS 1,000 ML IV ONE ×2 (07:27→08:00)
[2019-01-14] MEDS ORDERED: EPINEPHrine INJECTION 1 MG/ML AMP ONE (07:53)
[2019-01-14] MEDS ORDERED: HURRICAINE EXT TUBE (BENZOCAINE) ONE (07:55)
[2019-01-14] MEDS: EPINEPHrine INJECTION 1 MG/ML AMP INJ PRN ×2 (07:58→07:59)
[2019-01-14] MEDS ORDERED: HURRICAINE EXT TUBE (BENZOCAINE) XX ONE (08:00)
--- NOTE | 2019-01-14 08:18 | NUR ---
Initial visit by Blending Plant Operatoralli Goodwin: Engaged in rapport building and educated about Spiritual Care Services. Pt is Hindu. Declined prayer this visit.
--- NOTE | 2019-01-14 08:44 | Progress Note - Surgery ---
Subjective Time Seen by a Provider: 07:30 Subjective/Events-last exam Pt seen and examined, she was down waiting in Endo; at bedside. She had no new complaints, still felt a little weak. Her main concern was that she had been completely awake and aware during last colonoscopy. Review of Systems General: No Chills, No Night Sweats; Fatigue, Malaise Pulmonary: No Dyspnea, No Cough Cardiovascular: No: Chest Pain, Palpitations Gastrointestinal: No: Nausea, Vomiting, Abdominal Pain Focused Exam Lactate Level 01/12/19 20:53: Lactic Acid Level 2.66*H 01/13/19 00:00: Lactic Acid Level 1.87 Objective Exam Vital Signs Date Time Temp Pulse Resp B/P (MAP) Pulse Ox O2 Delivery O2 Flow Rate FiO2 01/14/19 08:35 60 16 100 OxyMask 8 01/14/19 08:30 60 16 100 OxyMask 8 01/14/19 06:41 82 01/14/19 04:11 36.6 88 18 134/80 (98) 93 Room Air 01/14/19 01:00 102 01/13/19 23:59 36.4 85 20 114/68 (83) 93 Room Air 01/13/19 22:09 36.1 88 18 147/81 (103) 98 Room Air 01/13/19 20:58 36.3 85 18 134/84 (101) 96 Room Air 01/13/19 20:05 36.7 88 20 137/82 97 Room Air 01/13/19 20:00 96 Room Air 01/13/19 19:00 108 01/13/19 15:40 37.1 91 20 126/79 (95) 95 Room Air 01/13/19 13:00 90 01/13/19 12:00 36.9 81 18 136/81 (99) 97 Room Air I & O 01/14/19 07:00 Intake Total 4245 ml Output Total 400 ml Balance 3845 ml Capillary Refill : Less Than 3 SecondsLess Than 3 Seconds General Appearance: No Apparent Distress, WD/WN, Anxious HEENT: PERRL/EOMI, Pharynx Normal Respiratory: Lungs Clear, Normal Breath Sounds, No Respiratory Distress Cardiovascular: Regular Rate, Rhythm, No Edema, No Murmur Gastrointestinal: normal bowel sounds, non tender, soft, no organomegaly, no pulsatile mass Extremity: Non Tender, No Pedal Edema Neurologic/Psychiatric: Alert, Oriented x3, No Motor/Sensory Deficits, Normal Mood/Affect Skin: Pallor Results Lab Laboratory Tests 01/13/19 17:30: Hemoglobin 7.1L, Hematocrit 22L 01/14/19 06:39: Hemoglobin 8.2L, Hematocrit 25L Microbiology 01/12/19 Blood Culture - Preliminary, Resulted No growth 01/12/19 Influenza Types A,B Antigen (FREDERICK) - Final, Complete Assessment/Plan Assessment/Plan Assessment/Plan Melena Anemia CTEPH Pt is getting colonoscopy/EGD now. All questions answered to her satisfaction. Clinical Quality Measures AMI/AHF: ASA po Prior to arrival: No DVT/VTE Risk/Contraindication: Risk Factor Score Per Nursin RFS Level Per Nursing on Admit: 4+=Very High AUNDREA ADAN DO Jan 14, 2019 08:44 POS
--- NOTE | 2019-01-14 08:50 | Progress Note-Post Operative ---
Post-Operative Progess Note Surgeon (s)/Floor Covering Printer Assistant (s) Surgeon AUNDREA ADAN DO Floor Covering Printer Assistant: JANAK PabloII Pre-Operative Diagnosis Anemia, Melena Post-Operative Diagnosis Gastric Bleed Diverticula Internal hemorrhoids poor prep Procedure & Operative Findings Date of Procedure 01/14/19 Procedure Performed/Findings EGD with attempted cautery of bleeder; then injection of lidocaine with epinephrine Colonoscopy Anesthesia Type IV sedation by INTERNATIONAL SALES MANAGER Estimated Blood Loss Estimated blood loss (mL): minimal Specimens/Packing Specimens Removed none AUNDREA ADAN DO Jan 14, 2019 08:49 POS
[2019-01-14] MEDS: RIOCIGUAT 2.5 MG PO SCH ×3 (09:35→20:09)
[2019-01-14] MEDS: PANTOPRAZOLE 40 MG (PROTONIX) VIAL IV SCH (09:35)
[2019-01-14] MEDS ORDERED: ACETAMINOPHEN 325 MG TABLET PO PRN (10:45)
[2019-01-14] MEDS ORDERED: PANTOPRAZOLE 40 MG (PROTONIX) TAB PO NR (10:45)
[2019-01-14] MEDS ORDERED: MELATONIN 3 MG TABLET PO PRN (10:45)
[2019-01-14] MEDS: NS IV 1000 ML 1,000 ML IV SCH (11:30)
[2019-01-14] MEDS: clonazePAM 0.5 MG (KlonoPIN) TAB PO PRN ×2 (11:51→21:35)
--- NOTE | 2019-01-14 13:22 | Anesthesia-General Post-Op ---
MAC Patient Condition Mental Status/LOC: Same as Preop Cardiovascular: Satisfactory Nausea/Vomiting: Absent Respiratory: Satisfactory Pain: Controlled Complications: Absent Post Op Complications Complications None Follow Up Care/Instructions Patient Instructions None needed. Anesthesiology Discharge Order Discharge Order Patient is doing well, no complaints, stable vital signs, no apparent adverse anesthesia problems. No complications reported per nursing. MITZI BURROWS CRNA Jan 14, 2019 13:22 POS
--- NOTE | 2019-01-14 13:22 | OPERATIVE REPORT ---
DATE OF SERVICE: 01/14/2019 PREOPERATIVE DIAGNOSES: Anemia and melena. POSTOPERATIVE DIAGNOSES: Gastric bleed, diverticula, internal hemorrhoids, poor prep. PROCEDURES: 1. EGD with attempted cautery of bleeding and then injection of lidocaine with epinephrine. 2. Colonoscopy. SURGEON: Kalin Dewitt DO ARMATURE WINDER: Moy Buitrago MS3. ANESTHESIA: IV sedation by ORTHOPEDICALLY IMPAIRED TEACHER. SPECIMENS: None. BLOOD LOSS: Minimal. POSTOPERATIVE CONDITION: Stable. INDICATION FOR PROCEDURE: The patient is a 58-year-old female, who has had anemia and melena and needed a workup. FINDINGS: The patient had one small bleeding area in the stomach. She had a lot of black clot of old blood in the stomach as well. I did not see any other obvious pathology in the colon. She had a lot of again black old blood. I did not see anything obvious. She did have some diverticula and internal hemorrhoids, but did not see any large masses, could have missed small polyps because of all the retained liquid old blood. PROCEDURE NOTE: After informed consent was obtained, the patient was brought to the endoscopy suite and placed in the bed in left lateral decubitus position. She was administered IV sedation by the ORTHOPEDICALLY IMPAIRED TEACHER, who then monitored her vitals the entire time, heart rate, blood pressure and pulse ox and the scope was inserted down the mouth through the esophagus into the stomach. Upon entering the stomach, noted a lot of black clots, pushed towards the antrum, did not see any gastritis, pushed into the small intestine, did not see any inflammation or anything in here, pulled back and then in the body of stomach, saw a small bleeding area, almost like a pinpoint area, it was just continual bleeding, flushed all of the stomach out, trying to clear it to make sure there was no other bleeding, did not see anything else and so at this point, tried to cauterize this area, had a hard time cautery, it was not working. So, switched and elected to inject lidocaine with epinephrine, injected 2 mL under and around this area. This stopped the bleeding. Good wheal was seen. Picture was taken. Retroflexed the scope, saw the plastic from the TIF procedure. Again, did not see anything else in the upper stomach, took a picture of the GE junction and then pulled the suction out the stomach, pulled the scope up the esophagus and out the mouth. Switched camera, switched gloves, went down below, started the colonoscopy. Unfortunately, on the colonoscopy, she had a lot of retained liquid fecal material, mostly black, so probably old dry blood, able to push all the way in and get all the way to the cecum, took a picture of appendiceal orifice, noted the ileocecal valve, slowly withdrew the scope insufflating to look circumferentially at the davis looking at the cecum, up the ascending colon to the hepatic flexure, then down the transverse colon, the splenic flexure, into the descending colon, down in the sigmoid, and in the sigmoid, saw a couple of diverticula and then down into the rectum, retroflexed the rectal vault, saw some internal hemorrhoids. The patient had again a lot of retained black liquid in the colon, so I do not believe I missed anything large, no masses, but could have missed small polyps. So, she will need a repeat colonoscopy to look for polyps. Scope had been removed. The patient tolerated the procedure, recovered in endoscopy suite. Job ID: [id number] DocumentID: [id number] Dictated Date: 01/14/2019 08:50:01 Quotation Clerk Date: 01/14/2019 13:22:31 Dictated By: KALIN DEWITT DO
--- NOTE | 2019-01-14 13:49 | Progress Note - Hospitalist ---
Subjective HPI/CC On Admission Date Seen by Provider: Jan 14, 2019 Time Seen by Provider: 10:30 lightheadedness, dizziness, and melena Subjective/Events-last exam She reports feeling better today. She denies lightheadedness and dizziness. She had black stools overnight with the prep. She denies abdominal pain, nausea, and vomiting. She denies chest pain and dyspnea. She denies fevers and chills. Focused Exam Lactate Level 01/12/19 20:53: Lactic Acid Level 2.66*H 01/13/19 00:00: Lactic Acid Level 1.87 Objective Exam Vital Signs Vital Signs Date Time Temp Pulse Resp B/P (MAP) Pulse Ox O2 Delivery O2 Flow Rate FiO2 01/14/19 08:40 68 18 97 Room Air 01/14/19 08:35 8 01/14/19 08:00 35.1 128/89 (102) Capillary Refill : Less Than 3 SecondsLess Than 3 Seconds General Appearance: No Apparent Distress, WD/WN HEENT: PERRL/EOMI, Pharynx Normal Neck: Normal Inspection, Supple Respiratory: Lungs Clear, Normal Breath Sounds, No Respiratory Distress Cardiovascular: Regular Rate, Rhythm, No Edema, No Murmur Gastrointestinal: Normal Bowel Sounds, Non Tender, Soft Extremity: Normal Inspection, Non Tender, No Pedal Edema Neurologic/Psychiatric: Alert, Oriented x3, No Motor/Sensory Deficits, Normal Mood/Affect Skin: Warm/Dry, Pallor Lymphatic: No Adenopathy Results/Procedures Lab Laboratory Tests 01/13/19 17:30 01/14/19 06:39 Patient resulted labs reviewed. Assessment/Plan Assessment and Plan Assess & Plan/Chief Complaint Melena Acute blood loss anemia Acute upper GI bleeding -Hgb 8.2, improved post-transfusion -Underwent EGD/colon this morning which revealed active gastric bleed injected with epi -Transition to oral PPI BID -Repeat Hgb tomorrow CTEPH -Hold anticoagulation, resume tomorrow morning -Continue Adempas Lactic acidosis, resolved DVT Prophylaxis: held due to active major bleeding Diagnosis/Problems Diagnosis/Problems (1) Acute upper gastrointestinal bleeding Status: Acute (2) Melena Status: Acute (3) Acute blood loss anemia Status: Acute (4) Lactic acidosis Status: Resolved Resolution Date/Time: 01/14/19 @ 13:49 (5) CTEPH (chronic thromboembolic pulmonary hypertension) Status: Chronic (6) Alcohol use Status: Chronic Clinical Quality Measures AMI/AHF: ASA po Prior to arrival: No DVT/VTE Risk/Contraindication: Risk Factor Score Per Nursin RFS Level Per Nursing on Admit: 4+=Very High Other: No prophylaxis per ALEXIS Norwood MD Jan 14, 2019 13:49 POS
[2019-01-14] MEDS: PANTOPRAZOLE 40 MG (PROTONIX) TAB PO SCH (20:09)
[2019-01-15 00:02] VITALS: BP 94/60
[2019-01-15 04:17] VITALS: BP 101/68
[2019-01-15] MEDS: PANTOPRAZOLE 40 MG (PROTONIX) TAB PO SCH (06:25)
[2019-01-15 06:39] LABS: HEMOGLOBIN 8.1 G/DL (11.5-16.0)
[2019-01-15 08:00] VITALS: BP 108/71
[2019-01-15] MEDS: RIOCIGUAT 2.5 MG PO SCH (08:39)
[2019-01-15] MEDS ORDERED: PANT40TA3 PO (09:13)
--- NOTE | 2019-01-15 09:19 | Discharge Summary ---
Discharge Summary Hospital Course Was the Problem List Reviewed?: Yes Problems/Dx: (1) Acute upper gastrointestinal bleeding Status: Resolved (2) Melena Status: Resolved (3) Acute blood loss anemia Status: Acute (4) Lactic acidosis Status: Resolved (5) CTEPH (chronic thromboembolic pulmonary hypertension) Status: Chronic (6) Alcohol use Status: Chronic Hospital Course Date of Admission: Jan 12, 2019 at 21:09 Admission Diagnosis : Acute upper gastrointestinal bleeding Family Physician/Provider: Tony Waterman DO Date of Discharge: 01/15/19 Discharge Diagnosis: Acute upper gastrointestinal bleeding Hospital Course: Radha Geronimo is a 58yoF with PMH CTEPH on Eliquis who presented with melena and hypotension. She was found to have an acute upper GI bleed. She had an acute blood loss anemia which required one transfusion. Surgery was consulted and performed EGD and colonoscopy. She was found to have an active bleeding vessel in her stomach which was treated with epinephrine. She was started on Pantoprazole which she should continue twice daily for 8 weeks and then once daily. She was restarted on her Eliquis for CTEPH. She should follow up with her PCP in about a week. Labs and Pending Lab Test: Laboratory Tests 01/15/19 05:30: Hemoglobin 8.1L, Hematocrit 25L Microbiology 01/12/19 Blood Culture - Preliminary, Resulted No growth 01/12/19 Influenza Types A,B Antigen (FREDERICK) - Final, Complete Home Meds Active Reported Eliquis (Apixaban) 5 Mg Tablet 5 Mg PO BID ON HOLD WHILE ON LOVENOX UNTIL PROCEDURE Enoxaparin Sodium 60 Mg/0.6 Ml Syringe 60 Mg SC BID FILLED #8 SYRINGES 01-12-19 HAS NOT TAKEN YET; TO BE TAKING WHILE OFF ELIQUIS AWAITING SCHEDULED PROCEDURE Adempas (Riociguat) 2.5 Mg Tablet 2.5 Mg PO TID Tylenol Extra Strength (Acetaminophen) 500 Mg Tablet 500-1,000 Mg PO Q4H PRN Clonazepam 0.5 Mg Tablet 0.5 Mg PO BID PRN Assessment/Pt Instructions Take medications as prescribed. Continue Pantoprazole 40 mg twice daily for 8 weeks, then once daily. Resume Eliquis for CTEPH. Follow up with Dr. Waterman in about a week. Discharge Planning: <30 minutes discharge planning Discharge Instructions Discharge Diet: No Restrictions Activity as Tolerated: Yes Discharge Physical Examination Vital Signs Vital Signs Date Time Temp Pulse Resp B/P (MAP) Pulse Ox O2 Delivery O2 Flow Rate FiO2 01/15/19 08:00 93 Room Air 8.00 01/15/19 07:00 78 01/15/19 04:17 37.0 18 101/68 (79) General Appearance: No Apparent Distress, WD/WN HEENT: PERRL/EOMI, Pharynx Normal Respiratory: Lungs Clear, Normal Breath Sounds, No Respiratory Distress Cardiovascular: Regular Rate, Rhythm, No Edema, No Murmur Gastrointestinal: Normal Bowel Sounds, Soft Extremity: Normal Inspection, Non Tender, No Pedal Edema Skin: Warm/Dry, Pallor Neurologic/Psychiatric: Alert, Oriented x3, No Motor/Sensory Deficits, Normal Mood/Affect Allergies: Coded Allergies: nitroglycerin (Verified Allergy, Severe, Anaphylaxis, 01/13/19) Discharge Summary Date of Admission Jan 12, 2019 at 21:09 Date of Discharge Discharge Date: Jan 15, 2019 Discharge Time: 09:18 Admission Diagnosis Acute blood loss anemia Consults/Procedures Consulations Surgery Procedures EGD/Colonoscopy Discharge Diagnosis Acute upper GI bleeding (1) Acute upper gastrointestinal bleeding Status: Resolved (2) Melena Status: Resolved (3) Acute blood loss anemia Status: Acute (4) Lactic acidosis Status: Resolved (5) CTEPH (chronic thromboembolic pulmonary hypertension) Status: Chronic (6) Alcohol use Status: Chronic Clinical Quality Measures AMI/AHF: ASA po Prior to arrival: No DVT/VTE Risk/Contraindication: Risk Factor Score Per Nursin RFS Level Per Nursing on Admit: 4+=Very High Other: No prophylaxis per ALEXIS Norwood MD Jan 15, 2019 09:18 POS
--- NOTE | 2019-01-15 13:20 | Progress Note - Surgery ---
REA POLLOCK,MED STUDENT 01/15/19 1320: Subjective Date Seen by a Provider: Jan 15, 2019 Time Seen by a Provider: 09:00 Subjective/Events-last exam Patient seen and examined. She reports feeling well this morning and states she wants to go home today. She denies any new complaints today, she is afebrile, and denies CHRISTIAN, chest pain, SOB, abdominal pain. Had EGD/colonoscopy yesterday and understands she may need to repeat a colonoscopy due to poor visualization due to old blood in the colon. She states she would like to schedule this in a few weeks due to being on holiday break from work. Focused Exam Lactate Level 01/12/19 20:53: Lactic Acid Level 2.66*H 01/13/19 00:00: Lactic Acid Level 1.87 Objective Exam Vital Signs Date Time Temp Pulse Resp B/P (MAP) Pulse Ox O2 Delivery O2 Flow Rate FiO2 01/15/19 10:26 01/15/19 08:00 93 Room Air 8.00 01/15/19 08:00 36.8 86 20 108/71 (83) Room Air 01/15/19 07:00 78 01/15/19 04:17 37.0 87 18 101/68 (79) 93 Room Air 01/15/19 01:00 91 01/15/19 00:02 36.4 89 20 94/60 (71) 91 Room Air 01/14/19 20:54 36.8 80 18 112/75 (87) 95 Room Air 01/14/19 20:45 Room Air 01/14/19 19:00 89 01/14/19 15:20 82 18 100/70 (80) 94 Room Air I & O 01/15/19 07:00 Intake Total 1570 ml Balance 1570 ml Capillary Refill : Less Than 3 SecondsLess Than 3 Seconds General Appearance: No Apparent Distress, WD/WN; No Anxious HEENT: PERRL/EOMI, Pharynx Normal, Moist Mucous Membranes; No Scleral Icterus (L), No Scleral Icterus (R) Neck: Normal Inspection, Non Tender, Supple Respiratory: Lungs Clear, Normal Breath Sounds, No Accessory Muscle Use, No Respiratory Distress Cardiovascular: Regular Rate, Rhythm, No Edema, No Murmur Peripheral Pulses: 2+ Radial Pulses (R), 2+ Radial Pulses (L) Gastrointestinal: normal bowel sounds, non tender, soft; No distended, No guarding, No rebound Extremity: Normal Inspection, Non Tender, No Calf Tenderness, No Pedal Edema Neurologic/Psychiatric: Alert, Oriented x3, Normal Mood/Affect Skin: Warm/Dry, Pallor Lymphatic: No Adenopathy Results Lab Laboratory Tests 01/15/19 05:30: Hemoglobin 8.1L, Hematocrit 25L Microbiology 01/12/19 Blood Culture - Preliminary, Resulted No growth 01/12/19 Influenza Types A,B Antigen (FREDERICK) - Final, Complete Assessment/Plan Assessment/Plan Assessment/Plan Melena Anemia CTEPH Patient underwent EGD/colonoscopy yesterday, which revealed small stomach bleed that was treated intraoperatively Discussed results with patient and she understands she may need a repeat colonoscopy due to poor visualization Continue Protonix Will plan to DC home today Clinical Quality Measures AMI/AHF: ASA po Prior to arrival: No DVT/VTE Risk/Contraindication: Risk Factor Score Per Nursin RFS Level Per Nursing on Admit: 4+=Very High Other: No prophylaxis per CAMILLE Barnett DO 01/15/19 1447: Subjective Subjective/Events-last exam feeling better. wanting to go home. hgb stable. no new complaints, denies n/v fever sweats chills shortness of breath or chest pain. Objective Exam General Appearance: No Apparent Distress HEENT: PERRL/EOMI Neck: Normal Inspection, Non Tender, Supple Respiratory: Chest Non Tender, No Accessory Muscle Use, No Respiratory Distress Cardiovascular: Regular Rate, Rhythm Gastrointestinal: normal bowel sounds, non tender, soft Extremity: Normal Inspection, Non Tender, No Calf Tenderness Neurologic/Psychiatric: Alert, Oriented x3, Normal Mood/Affect Skin: Warm/Dry Lymphatic: No Adenopathy Assessment/Plan Assessment/Plan Assessment/Plan upper gi bleed melena s/p egd colonoscopy with poor prep hgb stable, okay to dc home patient instructed on need to follow up outpatient, any change before appointments be seen at that time. Supervisory-Addendum Brief Verification & Attestation Participated in pt care: history, MDM, physical Personally performed: exam, history, MDM, supervision of care Care discussed with: Medical Student Procedures: n/a Results interpretation: Verified all documentation Verification and Attestation of Medical Student E/M Service A medical student performed and documented this service in my presence. I reviewed and verified all information documented by the medical student and made modifications to such information, when appropriate. I personally performed the physical exam and medical decision making. Camille Hahn, Jan 15, 2019,14:47 REA POLLOCK,MED STUDENT Jan 15, 2019 13:20 CAMILLE ARIAS DO Jan 15, 2019 14:47 POS
== END 2019-01-15 10:40 | disposition home or self-care (01) | DRG 378 ==
LOC: EDUNIT# 19:52 → ER 19:53 → 4TH 21:09
PROVIDERS: ADMIT Internal Medicine; ATTEND Internal Medicine
PROC: 3E033XZ Introduction of Vasopressor into Peripheral Vein, Percutaneous Approach (ICD-10-PCS; principal; 2019-01-14 07:30)
DX: K92.2 Gastrointestinal hemorrhage, unspecified (principal); D62 Acute posthemorrhagic anemia; E87.2 Acidosis; I27.24 Chronic thromboembolic pulmonary hypertension; K64.8 Other hemorrhoids; K57.90 Diverticulosis of intestine, part unspecified, without perforation or abscess without bleeding; M54.6 Pain in thoracic spine; R53.1 Weakness; I10 Essential (primary) hypertension; E78.00 Pure hypercholesterolemia, unspecified; K21.9 Gastro-esophageal reflux disease without esophagitis; F41.9 Anxiety disorder, unspecified; F32.9 Major depressive disorder, single episode, unspecified; F17.210 Nicotine dependence, cigarettes, uncomplicated; Z86.711 Personal history of pulmonary embolism; Z91.5 Personal history of self-harm; Z72.89 Other problems related to lifestyle; Z90.710 Acquired absence of both cervix and uterus
CPT/HCPCS: 36415; 71045; 71275; 80053; 80320; 81000; 82550; 82553; 82962; 83605; 83690; 83735; 83874; 83880; 84443; 84484; 85014; 85018; 85025; 85610; 85730; 86850; 86900; 86901; 86920; 87040; 87804; 93005; 93041; 96360; 96372

== ENCOUNTER 2019-04-01 05:36 | Outpatient (CLI) | payer BC ==
[~2019-04-01] VITALS: Ht 162 cm; Wt 69.5 kg
[~2019-04-01 05:36] MED LIST changes: +APIX5TAB PO; -CLON0.5T13 PO; +CLON0.5T4 PO; +ENOX60DI7 SC; +PANT40TA3 PO; +RIOC2.5T PO
[2019-04-01] MEDS ORDERED: BUDE3CAP5 PO (09:28)
[2019-04-05] MEDS ORDERED: ACHD5005 PO (13:27)
== END 2019-04-01 09:41 | disposition home or self-care (01) ==
LOC: PREOP 05:36
PROVIDERS: ATTEND Surgery
DX: Z01.818 Encounter for other preprocedural examination (principal)

== ENCOUNTER → 2019-08-23 | Outpatient (CLI) | payer BC ==
[~2019-08-23] MED LIST changes: +ACHD5005 PO
--- NOTE | 2019-08-23 15:35 | Diagnostic Imaging Report ---
PROCEDURE: US left lower extremity venous. TECHNIQUE: Multiple Real-time grayscale images were obtained over the left lower extremity in various projections. Additional duplex Doppler and color Doppler images were also obtained. INDICATION: Left lower extremity swelling. FINDINGS: There is no evidence of left lower extremity DVT. The left lower extremity deep venous system shows normal compressibility with normal response to augmentation and Valsalva. No fluid collection or mass is detected. IMPRESSION: No evidence of left lower extremity DVT. Dictated by: Dictated on workstation # [id number]
== END ==
LOC: RAD 12:13
PROVIDERS: ATTEND Internal Medicine
DX: R60.0 Localized edema (principal)

== ENCOUNTER 2019-09-26 22:37 | Emergency (ER) | payer BC ==
[~2019-09-26] VITALS: Ht 165 cm; Wt 68.0 kg
[2019-09-26] MEDS ORDERED: NS IV 1000 ML 1,000 ML IV SCH (22:48)
[2019-09-26 23:02] LABS: BASOPHILS # (AUTO) 0.1 10^3/uL (0.0-0.1); BASOPHILS % (AUTO) 1 % (0-10); EOSINOPHILS # (AUTO) 0.6 10^3/uL (0.0-0.3); EOSINOPHILS % (AUTO) 8 % (0-10); HEMATOCRIT 39 % (35-52); HEMOGLOBIN 13.4 G/DL (11.5-16.0); LYMPHOCYTES # (AUTO) 2.5 X 10^3 (1.0-4.0); LYMPHOCYTES % (AUTO) 33 % (12-44); MEAN CORPUSCULAR HEMOGLOBIN 31 PG (25-34); MEAN CORPUSCULAR HGB CONC 34 G/DL (32-36); MEAN CORPUSCULAR VOLUME 89 FL (80-99); MEAN PLATELET VOLUME 9.1 FL (7.4-10.4); MONOCYTES # (AUTO) 0.6 X 10^3 (0.0-1.0); MONOCYTES % (AUTO) 8 % (0-12); NEUTROPHILS # (AUTO) 3.9 X 10^3 (1.8-7.8); NEUTROPHILS % (AUTO) 51 % (42-75); PLATELET COUNT 309 10^3/uL (130-400); RED CELL DISTRIBUTION WIDTH 14.6 % (10.0-14.5); WHITE BLOOD COUNT 7.7 10^3/uL (4.3-11.0)
[2019-09-26 23:13] LABS: CHLORIDE 105 MMOL/L (98-107); POTASSIUM 3.3 MMOL/L (3.6-5.0); SODIUM 139 MMOL/L (135-145)
[2019-09-26 23:14] LABS: CALCIUM 9.4 MG/DL (8.5-10.1); INR 0.9 (0.8-1.4); PROTHROMBIN TIME PATIENT 12.2 SEC (12.2-14.7)
[2019-09-26 23:15] LABS: GLUCOSE 114 MG/DL (70-105)
[2019-09-26 23:16] LABS: CARBON DIOXIDE 21 MMOL/L (21-32)
[2019-09-26 23:19] LABS: CREATININE SERUM 0.75 MG/DL (0.60-1.30); GFR ESTIMATED > 60
[2019-09-26 23:20] LABS: BUN/CREATININE RATIO 16
--- NOTE | 2019-09-26 23:24 | NUR ---
Patient taken to CT via cart.
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
--- NOTE | 2019-09-26 23:54 | NUR ---
Patient's oxygen saturation is 87% on room air while patient is sleeping. RN walks into room and patient wakes up. She states she is on home oxygen at 2 LPM via nasal cannula at night. Patient placed on O2 at 2 LPM. Oxygen saturation rises to 99%.
[2019-09-26 23:55] LABS: BILIRUBIN,URINE NEGATIVE (NEGATIVE); CLARITY,URINE CLEAR; COLOR,URINE OTHER; GLUCOSE, URINE (UA) NEGATIVE (NEGATIVE); KETONES,URINE NEGATIVE (NEGATIVE); LEUKOCYTE ESTERASE ,URINE NEGATIVE (NEGATIVE); NITRITE,URINE NEGATIVE (NEGATIVE); PH,URINE 6.5 (5-9); PROTEIN,URINE NEGATIVE (NEGATIVE)
[2019-09-27 00:03] LABS: BACTERIA,URINE TRACE /HPF
[2019-09-27 00:17] LABS: AMPHETAMINE SCREEN, URINE NEGATIVE (NEGATIVE); BARBITURATE SCREEN URINE NEGATIVE (NEGATIVE); BENZODIAZEPINES SCREEN URINE NEGATIVE (NEGATIVE); CANNABINOID SCREEN, URINE NEGATIVE (NEGATIVE); COCAINE SCREEN URINE NEGATIVE (NEGATIVE); METHADONE STAT NEGATIVE (NEGATIVE); METHAMPHETAMINE SCREEN URINE S NEGATIVE (NEGATIVE); OPIATE SCREEN URINE NEGATIVE (NEGATIVE); OXYCODONE STAT NEGATIVE (NEGATIVE); PROPOXYPHENE STAT NEGATIVE (NEGATIVE); TRICYCLIC ANTIDEPRESSANTS SCRE NEGATIVE (NEGATIVE)
[2019-09-27 00:22] VITALS: BP 149/99
--- NOTE | 2019-09-27 05:41 | Diagnostic Imaging Report ---
PROCEDURE: CT head and CT cervical spine without contrast. TECHNIQUE: Multiple contiguous axial images were obtained through the brain and cervical spine without the use of intravenous contrast. Sagittal and coronal reformations through the cervical spine were then performed. Auto Exposure Controls were utilized during the CT exam to meet ALARA standards for radiation dose reduction. INDICATION: Fall. Head injury. COMPARISON: None. FINDINGS: CT HEAD: No intracranial hemorrhage, mass effect, hydrocephalus or extra-axial fluid collections. No CT evidence of acute territorial infarction. Encephalomalacia in the right occipital lobe. Osseous structures are intact. The paranasal sinuses and mastoids are clear. CT cervical spine: Normal alignment. Vertebral body heights are preserved. No fractures. Moderate degenerative endplate changes greatest at C5-C7. No evidence of high-grade spinal canal stenosis on soft tissue windows. The visualized paravertebral soft tissues are unremarkable. IMPRESSION: No acute intracranial or cervical spine CT findings. Dictated by: Dictated on workstation # [id number]
== END 2019-09-27 00:23 | disposition home or self-care (01) ==
LOC: EDUNIT# 22:37 → ER 22:38
DX: S09.90XA Unspecified injury of head, initial encounter (principal); S16.1XXA Strain of muscle, fascia and tendon at neck level, initial encounter; F10.229 Alcohol dependence with intoxication, unspecified; F17.210 Nicotine dependence, cigarettes, uncomplicated; I10 Essential (primary) hypertension; F41.9 Anxiety disorder, unspecified; F32.9 Major depressive disorder, single episode, unspecified; K21.9 Gastro-esophageal reflux disease without esophagitis; Z79.01 Long term (current) use of anticoagulants; Z88.8 Allergy status to other drugs, medicaments and biological substances; W19.XXXA Unspecified fall, initial encounter; Y90.8 Blood alcohol level of 240 mg/100 ml or more
CPT/HCPCS: 70450; 72125; 80048; 80306; 81000; 85025; 85610; 85730; 93041; 99284; G0480; 36415; 80320

== ENCOUNTER → 2020-03-19 | Outpatient (CLI) | payer BC ==
[~2020-03-19] MED LIST changes: +AMLO-250 PO; -AMLO5TAB9 PO; -PANT40TA3 PO; +PANT40TA52 PO
--- NOTE | 2020-03-19 09:04 | Diagnostic Imaging Report ---
INDICATION: Pulmonary hypertension. COMPARISON: 01/12/2019 chest x-ray. EXAMINATION: Chest, PA and lateral views. FINDINGS: The lungs are well-aerated and clear. No infiltrate. There is no air-trapping. The heart is not enlarged. No pneumothorax or pleural effusion. No bony abnormalities. IMPRESSION: Normal PA and lateral chest. Dictated by: Dictated on workstation # [id number]
== END ==
LOC: CARD 08:13
PROVIDERS: ATTEND Internal Medicine
DX: I08.0 Rheumatic disorders of both mitral and aortic valves (principal); I10 Essential (primary) hypertension; K92.1 Melena; I27.24 Chronic thromboembolic pulmonary hypertension
CPT/HCPCS: 71046; 93306